=== PATIENT | female | born 1965 | race Caucasian/White ===

== ENCOUNTER → 2019-07-04 | Outpatient (CLI) | payer SELFPAY | PROVIDERS: Family Provider Family Medicine; Visit Provider Internal Medicine Hematology & Oncology | DX: D75.1 Secondary polycythemia (principal); Z86.73 Personal history of transient ischemic attack (TIA), and cerebral infarction without residual deficits; I25.10 Atherosclerotic heart disease of native coronary artery without angina pectoris; Z95.1 Presence of aortocoronary bypass graft; Z95.5 Presence of coronary angioplasty implant and graft; Z86.010 Personal history of colon polyps | CPT/HCPCS: 99213 ==

== ENCOUNTER → 2019-09-27 11:19 | Outpatient (BNVA) | payer MEDICARE, MEDICAID, SELFPAY | PROVIDERS: Family Provider Family Medicine; PCP Family Medicine; Visit Provider Family Medicine | DX: J44.9 Chronic obstructive pulmonary disease, unspecified (principal); I25.810 Atherosclerosis of coronary artery bypass graft(s) without angina pectoris; E55.9 Vitamin D deficiency, unspecified; K21.9 Gastro-esophageal reflux disease without esophagitis; E78.5 Hyperlipidemia, unspecified; G25.81 Restless legs syndrome; N63.20 Unspecified lump in the left breast, unspecified quadrant; R53.83 Other fatigue; D45 Polycythemia vera; E13.43 Other specified diabetes mellitus with diabetic autonomic (poly)neuropathy | CPT/HCPCS: 80053; 80061; 82652; 83036; 85007; 85027 ==

== ENCOUNTER 2019-12-20 08:59 | Outpatient (CLI) | payer MEDICARE, MEDICAID, SELFPAY ==
[2019-12-20 09:46] LABS: Basophils # 0.1 10^3/uL (0.0-0.1); Basophils % 0.6 %; Eosinophils # 0.1 10^3/uL (0.0-0.8); Eosinophils % 0.9 %; Hematocrit 49.2 % (37.0-47.0); Hemoglobin 16.1 g/dL (11.5-15.3); Lymphocytes # 2.4 10^3/uL (0.8-4.8); Lymphocytes % 26.7 %; Mean Corpuscular HGB Conc 32.7 g/dL (30.0-36.0); Mean Corpuscular Hemoglobin 29.3 pg (28.0-34.0); Mean Corpuscular Volume 89.5 fL (81-99); Mean Platelet Volume 9.9 fL (7.4-10.4); Monocytes # 0.6 10^3/uL (0.2-0.9); Monocytes % 6.4 %; Neutrophils # 5.7 10^3/uL (1.8-7.7); Neutrophils % 64.5 %; Nucleated Red Blood Cells % 0 %; Platelet Count 237 10^3/cmm (130-400); Red Cell Distribution Width 13.4 % (12.1-15.1); White Blood Count 8.8 10^3/uL (4.0-10.0)
--- NOTE | 2019-12-20 13:53 | ONC FU_ITS ---
Dr. Fernandez follow up note Patient: Susie Castro Unit #: [id number]: [id number] Dicatated By: Chastity Fernandez M.D.Date of Visit:Dec 20, 2019 Onc Med Follow-up/Prog Note History of Present Illness: Mrs. Jackson???e Matthew, is a 54-year-old female with history of elevated hemoglobin was diagnosed with polycythemia in [address] [place] [address] Lunsford and she was started on phlebotomies every 3 month since then and last phlebotomy was done on 12/18/2018 . As per patient from [place] she moved to [facility] where she saw Dr. hernandez, director of fundraising, he continued with phlebotomies every 3 month. Patient has been tolerating phlebotomies with a 500 mL every 3 months well as per patient she was told that they want to keep her hematocrit from 33, not sure patient understood well as usual recommendations are 42-45. But we'll obtain record from Dr. Lunsford's/ 's office She has history of CVA now recovered, history of triple bypass, and 2 coronary artery stent placement. Patient had colonoscopy done in 2016 at that time couple of polyps were removed, patient developed massive rectal bleed after that, probably from polypectomy site, patient is not aware and received 2 units of packed RBCs. Came for follow-up, complaining of off and on headaches and episode of fall since last follow-up visit in June 2019 and patient lost follow-up because of coronavirus and other issues and today decided to come. Denies any fever chills denies any nausea or vomiting denies any diarrhea or constipation, she has restarted her smoking again and says smoke about half a pack a day and but no focal weakness, no blurred vision or double vision, Medications: Aspirin 1 Tablet (of 81 mg) Oral daily, Atorvastatin Calcium 1 Tablet (of 20 mg) Oral at bedtime, Brilinta 1 Tablet (of 60 mg) Oral b.i.d., Cholecalciferol 1 Capsule (of 56549 Units) Oral q 7 days, Januvia 1 Tablet (of 100 mg) Oral daily, Morphine Sulfate 1 Tablet (of 15 mg) Oral t.i.d. PRN, Multivitamin Adults 1 Tablet Oral daily, Narcan 1 spray(s) (of 4 mg/0.1mL) Liquid Nasal PRN, NexIUM 1 Capsule (of 40 mg) Capsule Delayed Release Oral daily, Nitrostat 1 Tablet (of 0.4 mg) Tablet, sublingual Sublingual PRN, Ondansetron HCl 1 Tablet (of 8 mg) Oral t.i.d. PRN, oxyCODONE HCl 1 Tablet (of 10 mg) Oral q 6 hours PRN, Ranexa 1 Tablet (of 1000 mg) Tablet SR 12 HR Oral b.i.d., Reglan 1 Tablet (of 10 mg) Oral daily, rOPINIRole HCl 1 Tablet (of 0.5 mg) Oral daily, Vascepa 1 Capsule (of 1 G) Oral b.i.d., Ventolin HFA 2 puff(s) (of 108 (90 base) mcg/act) Aerosol, solution Inhalation q 4 hours PRN Allergies: Imitrex, Latex, Pentazocine-Naloxone, quiNINE Sulfate, and traMADol HCl. Review of Systems: Constitutional - Appetite is good. No fever, chills, or hot flashes. She has some fatigue, ENMT - No sinus congestion/drainage. No mouth sores. No sore throat. She has some difficulty swallowing due to her acid reflux, Hematologic/Lymphatic - No abnormal bruising or bleeding, Respiratory - She has some shortness of breath. She has a daily cough. No pleuritic pain or hemoptysis, Cardiovascular - She has occassional chest pain. No palpitations, Gastrointestinal - No nausea or vomiting. She has some acid reflux. She has constipation. She has some hemorrhoids, which causes some blood when she has a hard stool, Genitourinary (F) - No dysuria or hematuria. She has urinary frequency at night. No urgency. She has some bladder leakage, Musculoskeletal - She has back pain due to a preexisting injury. She has generalized pain in her joints, Neurologic - She has a history of headaches and dizziness. No numbness/paresthesias or other focal neurologic symptoms, Psychiatric - She has anxiety. No depression. She has insomnia. Vital Signs: Performed on Dec 20, 2019 10:07 Height - 62.50 in Weight - 182.8 lbs (LOW) BSA - 1.85 sq.m BMI - 32.90 (HIGH) Temperature - 97.0 F (LOW) Pulse - 69 /min Respiration - 22 /min BP - 123/678 mm(hg) O2 Sat - 97 % Pain - 7 Performance Status: 0 - Fully active, able to carry on all predisease activities without restrictions. (ECOG) Physical Examination: ENMT - No mouth sores, no thrush, no jaundice, Respiratory - Lungs are clear, Cardiovascular - Regular rate and rhythm of heart, Abdomen - Soft, bowel sounds present, nontender, Extremities - No visible edema. 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 Lunsford, hematology oncology, since then on 3 monthly phlebotomy with 500 mL, and also on aspirin. Next History of CVA, now recovered X History of coronary artery disease, as per patient status post triple bypass, 2 coronary artery stents History of colonoscopy/polypectomy done in 2016, as per patient, she developed postprocedure rectal bleeding, requiring 2 units of packed RBC. Chronic smoking about half pack a day Plan: Discussed with patient regarding her labs white blood count 8.8 hemoglobin 16.1 crit 49.2 platelets 237,000 Clinically, patient is doing reasonably well now with off and on headaches and one episode of fall and patient is noncompliant with her follow-up and other recommendations like she was advised to quit smoking which she did for some time but then started smoking again. Her follow-up CBC shows elevated hematocrit and we will consider phlebotomy with 500 cc blood and replacement with 250 cc normal saline and the goal is to keep her hematocrit around 42 as long as tolerated and also obtain records from Dr. Lunsford's office. His office was called today and as per his nurse, he has retired, but she will send us patient's request once she received information release form, which was faxed to her today. Patient will continue with phlebotomies on every 2 weeks basis and goal is to keep her hematocrit around 42 and then she will return to clinic in 1 month with CBC. Patient was advised to quit smoking and she was offered any assistance she may need. Signed By: Chastity Fernandez M.D. <<Signature on File>>
== END 2019-12-20 09:00 | disposition home or self-care (01) ==
PROVIDERS: PCP Family Medicine; Visit Provider Internal Medicine Hematology & Oncology
DX: D75.1 Secondary polycythemia (principal); F17.210 Nicotine dependence, cigarettes, uncomplicated; I25.10 Atherosclerotic heart disease of native coronary artery without angina pectoris; Z95.5 Presence of coronary angioplasty implant and graft; Z95.1 Presence of aortocoronary bypass graft; Z86.73 Personal history of transient ischemic attack (TIA), and cerebral infarction without residual deficits
CPT/HCPCS: 85025; 99195; 99214

== ENCOUNTER 2020-01-03 11:19 | Outpatient (CLI) | payer MEDICARE, MEDICAID, SELFPAY ==
[2020-01-03 12:16] LABS: Basophils % 0.4 %; Eosinophils # 0.1 10^3/uL (0.0-0.8); Eosinophils % 1.4 %; Hematocrit 44.1 % (37.0-47.0); Hemoglobin 14.1 g/dL (11.5-15.3); Lymphocytes # 2.9 10^3/uL (0.8-4.8); Lymphocytes % 33.8 %; Mean Corpuscular Hemoglobin 28.8 pg (28.0-34.0); Mean Corpuscular Volume 90.2 fL (81-99); Mean Platelet Volume 9.9 fL (7.4-10.4); Monocytes # 0.5 10^3/uL (0.2-0.9); Monocytes % 5.7 %; Neutrophils # 4.9 10^3/uL (1.8-7.7); Neutrophils % 57.9 %; Nucleated Red Blood Cells % 0 %; Platelet Count 258 10^3/cmm (130-400); Red Blood Count 4.89 10^6/uL (4.1-5.3); Red Cell Distribution Width 13.3 % (12.1-15.1); White Blood Count 8.5 10^3/uL (4.0-10.0)
== END 2020-01-03 11:20 | disposition home or self-care (01) ==
LOC: ONCMED 11:22
PROVIDERS: PCP Family Medicine; Visit Provider Internal Medicine Hematology & Oncology
DX: D75.1 Secondary polycythemia (principal)
CPT/HCPCS: 85025

== ENCOUNTER 2020-01-04 12:26 | Outpatient (CLI) | payer MEDICARE, MEDICAID, SELFPAY ==
--- NOTE | 2020-01-04 13:00 | MR_ITS ---
WS: [id number] MRI HEAD WITH CONTRAST TECHNIQUE: Sagittal T1, T2 axial, T2 axial FLAIR, axial susceptibility weighted imaging, axial diffus ion weighted images, and coronal T2 images were obtained. Pre and post-T1 axial and post T1 coronal i mages. ADC and FSPGR images. CLINICAL INFORMATION: WHITTAKER, falls, memory issues, hx enlarge ventircles COMPARISON: None. FINDINGS: No evidence of restricted diffusion to suggest acute ischemia. Ventricular system and basal cisterns are patent. A few tiny foci of T2 hyperintensity in the periventricular and subcortical white matter nonspecific in a patient this age but can be seen with hypertensionand, diabetes, and migraine headac hes. One or 2 tiny chronic lacunar infarcts right cerebellum. Normal vascular flow voids at the skull base. No extra axial fluid collection. No evidence of mass or mass effect. Paranasal sinuses and mastoid air cells are well aerated. Mild mucosal thickening at th e mastoid tips. No hemosiderin on the susceptibly weighted images. Normal temporal lobes and hippocampal formations. Normal optic chiasm and pituitary infundibulum. Cav ernous sinuses and Meckel's cave normal in appearance. No abnormal gadolinium enhancement. Normal optic chiasm and pituitary infundibulum. Normal visualized dural venous sinuses. MR/MR head wo/w con [id number] IMPRESSION: 1. No evidence of restricted diffusion to suggest acute ischemia. 2. A few tiny foci of T2 hyperintensity in the periventricular and subcortical white matter nonspecific in a patient this age but can be seen with hypertensi on, diabetes, and migraine headaches. 3. One or Two chronic lacunar infarcts in the right cerebellum. 4. No abnormal gadolinium enhancement. 5. Mild mucosal thickening in the mastoid tips. 6. No hemosiderin on the susceptibility weighted images. 7. Temporal lobes and hippocampal formations are normal in appearance.
== END 2020-01-04 12:27 | disposition home or self-care (01) ==
LOC: RADSHAW 12:30
PROVIDERS: PCP Family Medicine; Visit Provider Family Medicine
DX: R29.6 Repeated falls (principal); R41.3 Other amnesia; I63.81 Other cerebral infarction due to occlusion or stenosis of small artery
CPT/HCPCS: 70553; A9579

== ENCOUNTER 2020-01-17 08:58 | Outpatient (CLI) | payer MEDICARE, MEDICAID, SELFPAY ==
[2020-01-17 09:33] LABS: Basophils % 0.5 %; Eosinophils # 0.1 10^3/uL (0.0-0.8); Eosinophils % 1.3 %; Hematocrit 48.7 % (37.0-47.0); Hemoglobin 15.5 g/dL (11.5-15.3); Lymphocytes # 2.2 10^3/uL (0.8-4.8); Lymphocytes % 26.1 %; Mean Corpuscular HGB Conc 31.8 g/dL (30.0-36.0); Mean Corpuscular Hemoglobin 28.5 pg (28.0-34.0); Mean Corpuscular Volume 89.7 fL (81-99); Mean Platelet Volume 9.9 fL (7.4-10.4); Monocytes # 0.5 10^3/uL (0.2-0.9); Monocytes % 6.1 %; Neutrophils # 5.55 10^3/uL (1.8-7.7); Neutrophils % 64.9 %; Nucleated Red Blood Cells % 0 %; Platelet Count 268 10^3/cmm (130-400); Red Blood Count 5.43 10^6/uL (4.1-5.3); Red Cell Distribution Width 13.1 % (12.1-15.1); White Blood Count 8.5 10^3/uL (4.0-10.0)
--- NOTE | 2020-01-19 12:10 | ONC FU_ITS ---
Dr. Fernandez follow up note Patient: Susie Castro Unit #: [id number]: 1965 Dicatated By: Chastity Fernandez M.D.Date of Visit:Jan 17, 2020 Onc Med Follow-up/Prog Note History of Present Illness: Mrs. Jackson???e Matthew, is a 54-year-old female with history of elevated hemoglobin was diagnosed with polycythemia in [address] [place] [address] Lunsford and she was started on phlebotomies every 3 month since then and last phlebotomy was done on 12/18/2018 . As per patient from [place] she moved to [facility] where she saw Dr. hernandez, history department chair, he continued with phlebotomies every 3 month. Patient has been tolerating phlebotomies with a 500 mL every 3 months well as per patient she was told that they want to keep her hematocrit from 33, not sure patient understood well as usual recommendations are 42-45. But we'll obtain record from Dr. Lunsford's/ 's office She has history of CVA now recovered, history of triple bypass, and 2 coronary artery stent placement. Patient had colonoscopy done in 2016 at that time couple of polyps were removed, patient developed massive rectal bleed after that, probably from polypectomy site, patient is not aware and received 2 units of packed RBCs. Came for follow-up, denies any specific complaints, no fever chills, no nausea or vomiting, no diarrhea constipation, no headaches no blurred vision no double vision. Patient use about many pillows to sleep as she has history of GERD Medications: Aspirin 1 Tablet (of 81 mg) Oral daily, Atorvastatin Calcium 1 Tablet (of 20 mg) Oral at bedtime, Brilinta 1 Tablet (of 60 mg) Oral b.i.d., Cholecalciferol 1 Capsule (of 54646 Units) Oral q 7 days, Januvia 1 Tablet (of 100 mg) Oral daily, Morphine Sulfate 1 Tablet (of 15 mg) Oral t.i.d. PRN, Multivitamin Adults 1 Tablet Oral daily, Narcan 1 spray(s) (of 4 mg/0.1mL) Liquid Nasal PRN, NexIUM 1 Capsule (of 40 mg) Capsule Delayed Release Oral daily, Nitrostat 1 Tablet (of 0.4 mg) Tablet, sublingual Sublingual PRN, Ondansetron HCl 1 Tablet (of 8 mg) Oral t.i.d. PRN, oxyCODONE HCl 1 Tablet (of 10 mg) Oral q 6 hours PRN, Ranexa 1 Tablet (of 1000 mg) Tablet SR 12 HR Oral b.i.d., Reglan 1 Tablet (of 20 mg) Oral t.i.d., rOPINIRole HCl 1 Tablet (of 0.5 mg) Oral daily, Vascepa 1 Capsule (of 1 G) Oral b.i.d., Ventolin HFA 2 puff(s) (of 108 (90 base) mcg/act) Aerosol, solution Inhalation q 4 hours PRN Allergies: Imitrex, Latex, Pentazocine-Naloxone, quiNINE Sulfate, and traMADol HCl. Review of Systems: Constitutional - Appetite is good. No fever, chills, or hot flashes. She has some fatigue, ENMT - No sinus congestion/drainage. No mouth sores. No sore throat. She has some difficulty swallowing due to her acid reflux, Hematologic/Lymphatic - No abnormal bruising or bleeding, Respiratory - She has some shortness of breath. She has a daily cough. No pleuritic pain or hemoptysis, Cardiovascular - She has occassional chest pain. No palpitations, Gastrointestinal - No nausea or vomiting. She has some acid reflux. She has constipation. She has some hemorrhoids, which causes some blood when she has a hard stool, Genitourinary (F) - No dysuria or hematuria. She has urinary frequency at night. No urgency. She has some bladder leakage, Musculoskeletal - She has back pain due to a preexisting injury. She has generalized pain in her joints, Neurologic - She has a history of headaches and dizziness. No numbness/paresthesias or other focal neurologic symptoms, Psychiatric - She has anxiety. No depression. She has insomnia. Vital Signs: Performed on Jan 17, 2020 10:26 Height - 62.50 in Weight - 182.6 lbs (LOW) BSA - 1.85 sq.m BMI - 32.87 (HIGH) Temperature - 97.6 F (LOW) Pulse - 69 /min Respiration - 24 /min BP - 128/74 mm(hg) O2 Sat - 98 % Pain - 7 Performance Status: 1 - No physically strenuous activity, but ambulatory and able to carry out light or sedentary work (e.g. office work, light house work). (ECOG) Physical Examination: ENMT - No mouth sores no thrush or jaundice, Respiratory - Poor air entry, mild wheezing, Cardiovascular - Regular rate and rhythm of heart, Abdomen - Soft, bowel sounds present, Extremities - No edema or rash. Lab/Imaging: Test performed on Jan 03, 2020 11:35 WBC 8.5 10 3/uL RBC 4.89 10 6/uL HGB 14.1 g/dL HCT 44.1 % MCV 90.2 fL MCH 28.8 pg MCHC 32.0 g/dL RDW 13.3 % Platelet Count 258 10 3/cmm MPV 9.9 fL Neutrophils 4.9 10 3/uL Lymphocytes 2.9 10 3/uL Monocytes 0.5 10 3/uL Eosinophils 0.1 10 3/uL Basophils 0.0 10 3/uL Neutrophil % 57.9 % Lymphocyte % 33.8 % Monocyte % 5.7 % Eosinophil % 1.4 % Basophils % 0.4 % NRBC % 0 % Impression: History of secondary polycythemia diagnosed in 2017, patient had Yvonne 2 mutation checked twice once on September 27, 2017 at [facility] medical oncology in [place],, it was negative and again second time on December 13, 2018 at [facility] in [place] and again it was noted detected History of CVA, now recovered X History of coronary artery disease, as per patient status post triple bypass, 2 coronary artery stents History of colonoscopy/polypectomy done in 2016, as per patient, she developed postprocedure rectal bleeding, requiring 2 units of packed RBC. Chronic smoking about half pack a day Plan: Discussed with patient regarding her labs white blood count 8.5 hemoglobin 15.5 crit 48.7 platelets 268,000 Clinically, patient is doing well with no new signs symptoms and also discussed with her regarding her medical record from [facility] as well as from [facility] in [place] at both places she had Yvonne 2 mutation checked and it was not detected, so she was diagnosed with a secondary polycythemia probably due to chronic smoking as well as possibility of sleep apnea. Patient was advised to quit smoking but she still smoking about a pack a day and sometimes 2 packs. Discussed with patient regarding guidelines about secondary polycythemia usually treated with for underlying conditions, in her case chronic heavy smoking and possible to sleep apnea patient was advised to quit smoking but she declined, she was offered any assistance she may need and also advised to discuss with PMD to get get sleep study done. As far as full body is concerned we will monitor closely and keep her hemoglobin/hematocrit between 50 and 55 unless she becomes symptomatic then we will keep her around 50. Patient expressed full understanding and she was advised to continue take aspirin and maintain good hydration, and quit smoking. Patient return to clinic in 2 months with CBC Signed By: Chastity Fernandez M.D. <<Signature on File>>
== END 2020-01-17 08:59 | disposition home or self-care (01) ==
LOC: ONCMED 09:01
PROVIDERS: PCP Family Medicine; Visit Provider Internal Medicine Hematology & Oncology
DX: D75.1 Secondary polycythemia (principal); F17.210 Nicotine dependence, cigarettes, uncomplicated; I25.10 Atherosclerotic heart disease of native coronary artery without angina pectoris; Z86.73 Personal history of transient ischemic attack (TIA), and cerebral infarction without residual deficits; Z95.5 Presence of coronary angioplasty implant and graft; Z95.1 Presence of aortocoronary bypass graft
CPT/HCPCS: 85025; G0463

== ENCOUNTER 2020-02-14 06:00 | Outpatient (RCR) | payer MEDICARE, MEDICAID, SELFPAY | END 2020-03-04 23:59 | disposition home or self-care (01) | LOC: MPT 06:00 | PROVIDERS: PCP Family Medicine; Referring Provider Anesthesiology; Visit Provider Anesthesiology | DX: M25.552 Pain in left hip (principal); M54.5 Low back pain | CPT/HCPCS: 97110; 97140; 97161; 97530 ==

== ENCOUNTER → 2020-02-19 11:07 | Outpatient (BNVA) | payer MEDICARE, MEDICAID, SELFPAY | PROVIDERS: PCP Family Medicine; Visit Provider Nurse Practitioner | DX: R41.3 Other amnesia (principal); R29.90 Unspecified symptoms and signs involving the nervous system | CPT/HCPCS: 99204 ==

== ENCOUNTER 2020-03-05 06:00 | Outpatient (RCR) | payer MEDICARE, MEDICAID, SELFPAY | END 2020-04-03 23:59 | disposition home or self-care (01) | LOC: MPT 06:00 | PROVIDERS: PCP Family Medicine; Referring Provider Anesthesiology; Visit Provider Anesthesiology | DX: M25.552 Pain in left hip (principal) | CPT/HCPCS: 97110; 97140; 97530 ==

== ENCOUNTER → 2020-03-07 11:34 | Outpatient (BNVA) | payer MEDICARE, MEDICAID, SELFPAY | PROVIDERS: PCP Family Medicine; Visit Provider Family Medicine | DX: E11.9 Type 2 diabetes mellitus without complications (principal); M53.3 Sacrococcygeal disorders, not elsewhere classified; F32.9 Major depressive disorder, single episode, unspecified; R41.3 Other amnesia; R51 Headache | CPT/HCPCS: 80053; 82607; 83036; 84443 ==

== ENCOUNTER → 2020-04-02 11:50 | Outpatient (BNVA) | payer MEDICARE, MEDICAID, SELFPAY | PROVIDERS: PCP Family Medicine; Referring Provider Nurse Practitioner; Visit Provider Nurse Practitioner | DX: Z79.899 Other long term (current) drug therapy (principal) | CPT/HCPCS: 80164 ==

== ENCOUNTER 2020-04-17 12:16 | Outpatient (CLI) | payer MEDICARE, MEDICAID, SELFPAY ==
[2020-04-17 12:59] LABS: Basophils # 0.1 10^3/uL (0.0-0.1); Basophils % 0.7 %; Eosinophils # 0.1 10^3/uL (0.0-0.8); Eosinophils % 1.5 %; Hematocrit 51.5 % (37.0-47.0); Hemoglobin 16.7 g/dL (11.5-15.3); Lymphocytes % 40.7 %; Mean Corpuscular HGB Conc 32.4 g/dL (30.0-36.0); Mean Corpuscular Hemoglobin 29.3 pg (28.0-34.0); Mean Corpuscular Volume 90.4 fL (81-99); Monocytes # 0.5 10^3/uL (0.2-0.9); Monocytes % 7.3 %; Neutrophils # 3.59 10^3/uL (1.8-7.7); Neutrophils % 48.6 %; Nucleated Red Blood Cells % 0 %; Platelet Count 245 10^3/cmm (130-400); Red Cell Distribution Width 13.4 % (12.1-15.1); White Blood Count 7.4 10^3/uL (4.0-10.0)
== END 2020-04-17 12:17 | disposition home or self-care (01) ==
LOC: ONCMED 12:20
PROVIDERS: PCP Family Medicine; Visit Provider Internal Medicine Hematology & Oncology
DX: D75.1 Secondary polycythemia (principal)
CPT/HCPCS: 36415; 85025

== ENCOUNTER 2020-04-18 05:52 | Outpatient (CLI) | payer MEDICARE, MEDICAID, SELFPAY ==
--- NOTE | 2020-04-18 14:12 | ONC FU_ITS ---
Dr. Fernandez follow up note Patient: Susie Castro Unit #: [id number]: 1965 Dicatated By: Chastity Fernandez M.D.Date of Visit:Apr 18, 2020 Onc Med Follow-up/Prog Note History of Present Illness: Mrs. Jackson???e Matthew, is a 55-year-old female with history of elevated hemoglobin was diagnosed with polycythemia in [address] [place] [address] Lunsford and she was started on phlebotomies every 3 month since then and last phlebotomy was done on 12/18/2018 . As per patient from [place] she moved to [facility] where she saw Dr. hernandez, deputy sheriff generalist/bailiff, he continued with phlebotomies every 3 month. Patient has been tolerating phlebotomies with a 500 mL every 3 months well as per patient she was told that they want to keep her hematocrit from 33, not sure patient understood well as usual recommendations are 42-45. But we'll obtain record from Dr. Lunsford's/ 's office She has history of CVA now recovered, history of triple bypass, and 2 coronary artery stent placement. Patient had colonoscopy done in 2016 at that time couple of polyps were removed, patient developed massive rectal bleed after that, probably from polypectomy site, patient is not aware and received 2 units of packed RBCs. Came for follow-up, patient is complaining of episode of small blood in her phlegm x3 since last month, happened after coughing, patient still smoke 1 pack a day. But no fever chills, no nausea or vomiting, no diarrhea constipation, no nosebleed or gum bleed, and also complaining of headaches, as per patient her Depakote dose has been increased to control her headaches, as per patient when her hematocrit goes above 50, usually she gets gets headaches or worsening of headaches. No focal weakness, no chest pain no heaviness no palpitation. Medications: Aspirin 1 Tablet (of 81 mg) Oral daily, Atorvastatin Calcium 1 Tablet (of 20 mg) Oral at bedtime, Brilinta 1 Tablet (of 60 mg) Oral b.i.d., Cholecalciferol 1 Capsule (of 93899 Units) Oral q 7 days, Cyclobenzaprine HCl 2 Tablet (of 10 mg) Oral t.i.d., Depakote ER 2 Tablet (of 500 mg) Tablet SR 24 HR Oral at bedtime, Januvia 1 Tablet (of 100 mg) Oral daily, Morphine Sulfate 1 Tablet (of 30 mg) Oral t.i.d. PRN, Multivitamin Adults 1 Tablet Oral daily, Narcan 1 spray(s) (of 4 mg/0.1mL) Liquid Nasal PRN, NexIUM 1 Capsule (of 40 mg) Capsule Delayed Release Oral daily, Nitrostat 1 Tablet (of 0.4 mg) Tablet, sublingual Sublingual PRN, Ondansetron HCl 1 Tablet (of 8 mg) Oral t.i.d. PRN, oxyCODONE HCl 1 Tablet (of 10 mg) Oral q 6 hours PRN, PROzac 1 Capsule (of 10 mg) Oral daily, Ranexa 1 Tablet (of 1000 mg) Tablet SR 12 HR Oral b.i.d., Reglan 1 Tablet (of 20 mg) Oral t.i.d., rOPINIRole HCl 1 Tablet (of 0.5 mg) Oral daily, Vascepa 1 Capsule (of 1 G) Oral b.i.d., Ventolin HFA 2 puff(s) (of 108 (90 base) mcg/act) Aerosol, solution Inhalation q 4 hours PRN Allergies: Imitrex, Latex, Pentazocine-Naloxone, quiNINE Sulfate, and traMADol HCl. Review of Systems: Constitutional - Appetite is good. No fever, chills, or hot flashes. She has some fatigue, ENMT - No sinus congestion/drainage. No mouth sores. No sore throat. She has some difficulty swallowing due to her acid reflux, Hematologic/Lymphatic - No abnormal bruising or bleeding, Respiratory - She has some shortness of breath. She has a daily cough. Positive for hemoptysis, Cardiovascular - She has occassional chest pain. No palpitations, Gastrointestinal - No nausea or vomiting. She has some acid reflux. She has constipation. She has some hemorrhoids, which causes some blood when she has a hard stool, Genitourinary (F) - No dysuria or hematuria. She has urinary frequency at night. No urgency. She has some bladder leakage, Musculoskeletal - She has back pain due to a preexisting injury. She has generalized pain in her joints, Neurologic - She has a history of headaches and dizziness. No numbness/paresthesias or other focal neurologic symptoms, Psychiatric - She has anxiety. No depression. She has insomnia. Vital Signs: Performed on Apr 18, 2020 13:30 Height - 62.50 in Weight - 182.6 lbs BSA - 1.85 sq.m BMI - 32.87 (HIGH) Temperature - 97.8 F (LOW) Pulse - 70 /min Respiration - 24 /min BP - 122/65 mm(hg) O2 Sat - 97 % Pain - 6 Performance Status: 0 - Fully active, able to carry on all predisease activities without restrictions. (ECOG) Physical Examination: ENMT - No mouth sores, no thrush, no Jaundice, Respiratory - Lungs are clear to auscultation, Cardiovascular - Regular rate and rhythm of heart, Abdomen - Soft, bowel sounds present, Extremities - No visible edema. Lab/Imaging: Test performed on Jan 17, 2020 09:10 WBC 8.5 10 3/uL RBC 5.43 10 6/uL HGB 15.5 g/dL HCT 48.7 % MCV 89.7 fL MCH 28.5 pg MCHC 31.8 g/dL RDW 13.1 % Platelet Count 268 10 3/cmm MPV 9.9 fL Neutrophils 5.55 10 3/uL Lymphocytes 2.2 10 3/uL Monocytes 0.5 10 3/uL Eosinophils 0.1 10 3/uL Basophils 0.0 10 3/uL Neutrophil % 64.9 % Lymphocyte % 26.1 % Monocyte % 6.1 % Eosinophil % 1.3 % Basophils % 0.5 % NRBC % 0 % Impression: History of secondary polycythemia diagnosed in 2016, patient had Yvonne 2 mutation checked twice once on September 27, 2017 at [facility] oncology in [place],, it was negative and again second time on December 13, 2018 at [facility] in [place] and again it was noted detected History of CVA, now recovered X History of coronary artery disease, as per patient status post triple bypass, 2 coronary artery stents History of colonoscopy/polypectomy done in 2016, as per patient, she developed postprocedure rectal bleeding, requiring 2 units of packed RBC. Chronic smoking about half pack a day Plan: Discussed with patient regarding her labs white blood count 7.4 hemoglobin 16.7 hematocrit 51.5 compared to 48.7 on January 17, 2020, platelets 245,000 Clinically, patient is doing reasonably well now with new signs symptoms like off and on self-limiting small hemoptysis especially during or after coughing. Etiology unclear could be due to chronic bronchitis, we will consider chest x-ray if it shows no abnormality and patient continued to have hemoptysis we will refer her to pulmonology for evaluation. As for her headaches and worsening of headache is concerned, patient has secondary polycythemia, most the patient can tolerate hematocrit as high as 55 but in her case, as per patient her symptoms usually get worse when hematocrit goes above 50, at this point we will proceed with phlebotomy 250 cc and then she will return to clinic in 1 month with CBC if patient's headaches improved with phlebotomy then we will keep her hematocrit below 50. Patient was advised to quit smoking and was offered any assistance she may need she was also advised to reconsider about sleep study, as she may benefit from sleep apnea management. Patient was also advised to maintain good hydration and continue daily aspirin a day. Signed By: Chastity Fernandez M.D. <<Signature on File>>
[2020-04-18] MEDS: sodium chloride 0.9% 250 ML 75 ML IV (14:36)
--- NOTE | 2020-04-18 14:49 | XR_ITS ---
WS: [id number] Chest 2 views, 04/18/2020 Clinical Data: COUGHING UP BLOOD Comparison: Portable chest, 06/01/2019 Findings: No nodules, masses or effusions are seen. The heart is normal. The pulmonary vascularity is not increased. No pneumonia or pneumothorax is seen. Anterior mediastinal clips are seen. XR/XR chest 2V* [id number] Impression: Negative for acute cardiopulmonary disease.
== END 2020-04-18 05:53 | disposition home or self-care (01) ==
PROVIDERS: PCP Family Medicine; Visit Provider Internal Medicine Hematology & Oncology
DX: D75.1 Secondary polycythemia (principal); R04.2 Hemoptysis; R51.9 Headache, unspecified; I25.10 Atherosclerotic heart disease of native coronary artery without angina pectoris; F17.210 Nicotine dependence, cigarettes, uncomplicated; Z86.73 Personal history of transient ischemic attack (TIA), and cerebral infarction without residual deficits; Z95.5 Presence of coronary angioplasty implant and graft; Z95.1 Presence of aortocoronary bypass graft; Z79.82 Long term (current) use of aspirin; Z86.010 Personal history of colon polyps
CPT/HCPCS: 71046; 99195; 99214; J7050

== ENCOUNTER 2020-05-20 06:00 | Outpatient (CLI) | payer MEDICARE, MEDICAID, SELFPAY ==
[2020-05-20 10:52] LABS: Basophils % 0.3 %; Eosinophils # 0.1 10^3/uL (0.0-0.8); Eosinophils % 1.1 %; Hematocrit 48.5 % (37.0-47.0); Hemoglobin 15.6 g/dL (11.5-15.3); Lymphocytes # 2.3 10^3/uL (0.8-4.8); Lymphocytes % 23.8 %; Mean Corpuscular HGB Conc 32.2 g/dL (30.0-36.0); Mean Corpuscular Hemoglobin 29.5 pg (28.0-34.0); Mean Corpuscular Volume 91.9 fL (81-99); Mean Platelet Volume 9.6 fL (7.4-10.4); Monocytes # 0.8 10^3/uL (0.2-0.9); Monocytes % 7.8 %; Neutrophils # 6.39 10^3/uL (1.8-7.7); Neutrophils % 66.3 %; Nucleated Red Blood Cells % 0 %; Platelet Count 256 10^3/cmm (130-400); Red Blood Count 5.28 10^6/uL (4.1-5.3); Red Cell Distribution Width 13.3 % (12.1-15.1); White Blood Count 9.7 10^3/uL (4.0-10.0)
== END 2020-05-20 06:01 | disposition home or self-care (01) ==
PROVIDERS: PCP Family Medicine; Visit Provider Internal Medicine Hematology & Oncology
DX: D75.1 Secondary polycythemia (principal)
CPT/HCPCS: 36415; 85025

== ENCOUNTER 2020-05-21 06:01 | Outpatient (CLI) | payer MEDICARE, MEDICAID, SELFPAY ==
--- NOTE | 2020-05-21 13:57 | ONC FU_ITS ---
Dr. Fernandez follow up note Patient: Susie Castro Unit #: [id number]: [id number] Dicatated By: Chastity Fernandez M.D.Date of Visit:May 21, 2020 Onc Med Follow-up/Prog Note History of Present Illness: Mrs. Jackson???e Matthew, is a 55-year-old female with history of elevated hemoglobin was diagnosed with polycythemia in 2016 in [place] [address] Dr. Lunsford and she was started on phlebotomies every 3 month since then and last phlebotomy was done on 12/18/2018 . As per patient from [place] she moved to [facility] where she saw Dr. hernandez, statement clerk, he continued with phlebotomies every 3 month. Patient has been tolerating phlebotomies with a 500 mL every 3 months well as per patient she was told that they want to keep her hematocrit from 33, not sure patient understood well as usual recommendations are 42-45. But we'll obtain record from Dr. Lunsford's/ 's office She has history of CVA now recovered, history of triple bypass, and 2 coronary artery stent placement. Patient had colonoscopy done in 2016 at that time couple of polyps were removed, patient developed massive rectal bleed after that, probably from polypectomy site, patient is not aware and received 2 units of packed RBCs. Came for follow-up, denies any specific complaints, no fever chills, no nausea or vomiting, no diarrhea constipation, no headaches blurred vision double vision, no focal weakness, no heaviness in the chest. Still smoking but has cut down significantly.. Medications: Aspirin 1 Tablet (of 81 mg) Oral daily, Atorvastatin Calcium 1 Tablet (of 20 mg) Oral at bedtime, Brilinta 1 Tablet (of 60 mg) Oral b.i.d., Cholecalciferol 1 Capsule (of 18791 Units) Oral q 7 days, Cyclobenzaprine HCl 2 Tablet (of 5 mg) Oral t.i.d., Depakote ER 2 Tablet (of 500 mg) Tablet SR 24 HR Oral at bedtime, Januvia 1 Tablet (of 100 mg) Oral daily, Morphine Sulfate 1 Tablet (of 30 mg) Oral t.i.d. PRN, Multivitamin Adults 1 Tablet Oral daily, Narcan 1 spray(s) (of 4 mg/0.1mL) Liquid Nasal PRN, NexIUM 1 Capsule (of 40 mg) Capsule Delayed Release Oral daily, Nitrostat 1 Tablet (of 0.4 mg) Tablet, sublingual Sublingual PRN, Ondansetron HCl 1 Tablet (of 8 mg) Oral t.i.d. PRN, oxyCODONE HCl 1 Tablet (of 10 mg) Oral q 6 hours PRN, PROzac 1 Capsule (of 10 mg) Oral daily, Ranexa 1 Tablet (of 1000 mg) Tablet SR 12 HR Oral b.i.d., Reglan 1 Tablet (of 20 mg) Oral t.i.d., rOPINIRole HCl 1 Tablet (of 0.5 mg) Oral daily, Vascepa 1 Capsule (of 1 G) Oral b.i.d., Ventolin HFA 2 puff(s) (of 108 (90 base) mcg/act) Aerosol, solution Inhalation q 4 hours PRN Allergies: Imitrex, Latex, Pentazocine-Naloxone, quiNINE Sulfate, and traMADol HCl. Review of Systems: Review of Systems is not available for this patient. Vital Signs: Performed on May 21, 2020 13:34 Height - 62.50 in Weight - 183.0 lbs (HIGH) BSA - 1.85 sq.m BMI - 32.94 (HIGH) Temperature - 98.0 F (LOW) Pulse - 76 /min Respiration - 24 /min BP - 108/64 mm(hg) O2 Sat - 98 % Pain - 5 Performance Status: 1 - No physically strenuous activity, but ambulatory and able to carry out light or sedentary work (e.g. office work, light house work). (ECOG) Physical Examination: ENMT - No mouth sores, no thrush, no jaundice, Respiratory - Poor air entry otherwise clear, Cardiovascular - Regular rate and rhythm of heart, Abdomen - Soft, bowel sounds present, Extremities - No visible edema. Lab/Imaging: Test performed on Apr 17, 2020 12:40 WBC 7.4 10 3/uL RBC 5.70 10 6/uL HGB 16.7 g/dL HCT 51.5 % MCV 90.4 fL MCH 29.3 pg MCHC 32.4 g/dL RDW 13.4 % Platelet Count 245 10 3/cmm MPV 10.0 fL Neutrophils 3.59 10 3/uL Lymphocytes 3.0 10 3/uL Monocytes 0.5 10 3/uL Eosinophils 0.1 10 3/uL Basophils 0.1 10 3/uL Neutrophil % 48.6 % Lymphocyte % 40.7 % Monocyte % 7.3 % Eosinophil % 1.5 % Basophils % 0.7 % NRBC % 0 % Impression: History of secondary polycythemia diagnosed in 2016, patient had Yvonne 2 mutation checked twice once on September 27, 2017 at [facility] oncology in [place],, it was negative and again second time on December 13, 2018 at [facility] in [place] and again it was noted detected History of CVA, now recovered X History of coronary artery disease, as per patient status post triple bypass, 2 coronary artery stents History of colonoscopy/polypectomy done in 2016, as per patient, she developed postprocedure rectal bleeding, requiring 2 units of packed RBC. Chronic smoking about half pack a day Plan: Discussed with patient regarding her labs white blood count 9.7 hemoglobin 15.6 hematocrit 48.5 platelets 256,000, chest x-ray showed no acute cardiopulmonary disease. Clinically, patient doing reasonably well, no more episode of hemoptysis, her lab work-up shows hematocrit in desirable range e.g. below 50 and patient has no new symptoms as per patient anytime her hematocrit go above 50 she gets headaches and heaviness. She was advised to quit smoking and was offered any assistance she may need. Return to clinic in 1 month with CBC Signed By: Chastity Fernandez M.D. <<Signature on File>>
== END 2020-05-21 06:02 | disposition home or self-care (01) ==
LOC: ONCMED 06:03
PROVIDERS: PCP Family Medicine; Visit Provider Internal Medicine Hematology & Oncology
DX: D75.1 Secondary polycythemia (principal); F17.210 Nicotine dependence, cigarettes, uncomplicated; I25.10 Atherosclerotic heart disease of native coronary artery without angina pectoris; Z86.73 Personal history of transient ischemic attack (TIA), and cerebral infarction without residual deficits; Z95.1 Presence of aortocoronary bypass graft; Z95.5 Presence of coronary angioplasty implant and graft
CPT/HCPCS: G0463

== ENCOUNTER 2020-06-13 08:59 | Outpatient (CLI) | payer MEDICARE, MEDICAID, SELFPAY ==
[2020-06-13 09:29] LABS: Basophils # 0.1 10^3/uL (0.0-0.1); Basophils % 0.5 %; Eosinophils # 0.1 10^3/uL (0.0-0.8); Eosinophils % 1.2 %; Hematocrit 49.3 % (37.0-47.0); Hemoglobin 16.2 g/dL (11.5-15.3); Lymphocytes # 2.1 10^3/uL (0.8-4.8); Lymphocytes % 23.5 %; Mean Corpuscular HGB Conc 32.9 g/dL (30.0-36.0); Mean Corpuscular Hemoglobin 29.9 pg (28.0-34.0); Mean Corpuscular Volume 91.1 fL (81-99); Mean Platelet Volume 9.9 fL (7.4-10.4); Monocytes # 0.6 10^3/uL (0.2-0.9); Monocytes % 6.6 %; Neutrophils # 6.14 10^3/uL (1.8-7.7); Neutrophils % 67.3 %; Nucleated Red Blood Cells % 0 %; Platelet Count 241 10^3/cmm (130-400); Red Blood Count 5.41 10^6/uL (4.1-5.3); Red Cell Distribution Width 13.1 % (12.1-15.1); White Blood Count 9.1 10^3/uL (4.0-10.0)
--- NOTE | 2020-06-14 00:44 | ONC FU_ITS ---
Dr. Fernandez follow up note Patient: Susie Castro Unit #: [id number]: 1965 Dicatated By: Chastity Fernandez M.D.Date of Visit:Jun 13, 2020 Onc Med Follow-up/Prog Note History of Present Illness: Mrs. Jackson???e Matthew, is a 55-year-old female with history of elevated hemoglobin was diagnosed with polycythemia in 2016 in [place] by Dr. Lunsford and she was started on phlebotomies every 3 month since then and last phlebotomy was done on 12/18/2018 . As per patient from [place] she moved to [facility] where she saw Dr. 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 Patient has been tolerating phlebotomies with a 500 mL every 3 months well as per patient she was told that they want to keep her hematocrit from 33, not sure patient understood well as usual recommendations are 42-45. But we'll obtain record from Dr. Lunsford's/ 's office She has history of CVA now recovered, history of triple bypass, and 2 coronary artery stent placement. Patient had colonoscopy done in 2016 at that time couple of polyps were removed, patient developed massive rectal bleed after that, probably from polypectomy site, patient is not aware and received 2 units of packed RBCs. Came for follow-up, denies any specific complaints, no fever chills, no nausea or vomiting, no diarrhea or constipation, no headaches blurred vision double vision, no chest heaviness or fullness. Still smoking 1 pack a day but trying to cut it down Medications: Aspirin 1 Tablet (of 81 mg) Oral daily, Atorvastatin Calcium 1 Tablet (of 20 mg) Oral at bedtime, Brilinta 1 Tablet (of 60 mg) Oral b.i.d., Cholecalciferol 1 Capsule (of 05512 Units) Oral q 7 days, Cyclobenzaprine HCl 2 Tablet (of 5 mg) Oral t.i.d., Depakote ER 2 Tablet (of 500 mg) Tablet SR 24 HR Oral at bedtime, Januvia 1 Tablet (of 100 mg) Oral daily, Morphine Sulfate 1 Tablet (of 30 mg) Oral t.i.d. PRN, Multivitamin Adults 1 Tablet Oral daily, Narcan 1 spray(s) (of 4 mg/0.1mL) Liquid Nasal PRN, NexIUM 1 Capsule (of 40 mg) Capsule Delayed Release Oral daily, Nitrostat 1 Tablet (of 0.4 mg) Tablet, sublingual Sublingual PRN, Ondansetron HCl 1 Tablet (of 8 mg) Oral t.i.d. PRN, oxyCODONE HCl 1 Tablet (of 10 mg) Oral q 6 hours PRN, PROzac 1 Capsule (of 10 mg) Oral daily, Ranexa 1 Tablet (of 1000 mg) Tablet SR 12 HR Oral b.i.d., Reglan 1 Tablet (of 20 mg) Oral t.i.d., rOPINIRole HCl 1 Tablet (of 0.5 mg) Oral daily, Vascepa 1 Capsule (of 1 G) Oral b.i.d., Ventolin HFA 2 puff(s) (of 108 (90 base) mcg/act) Aerosol, solution Inhalation q 4 hours PRN Allergies: Imitrex, Latex, Pentazocine-Naloxone, quiNINE Sulfate, and traMADol HCl. Review of Systems: Constitutional - Appetite is good. No fever, chills, or hot flashes. She has some fatigue, ENMT - No sinus congestion/drainage. No mouth sores. No sore throat. She has some difficulty swallowing due to her acid reflux, Hematologic/Lymphatic - No abnormal bruising or bleeding, Respiratory - She has some shortness of breath. She has a daily cough. Positive for hemoptysis, Cardiovascular - She has occassional chest pain. No palpitations, Gastrointestinal - Positive for nausea no vomiting. She has some acid reflux. She has constipation. She has some hemorrhoids, which causes some blood when she has a hard stool, Genitourinary (F) - No dysuria or hematuria. She has urinary frequency at night. No urgency. She has some bladder leakage, Musculoskeletal - She has back pain due to a preexisting injury. She has generalized pain in her joints, Neurologic - She has a history of headaches and dizziness. No numbness/paresthesias or other focal neurologic symptoms, Psychiatric - She has anxiety. No depression. She has insomnia. Vital Signs: Performed on Jun 13, 2020 11:22 Height - 62.50 in Weight - 181.2 lbs (LOW) BSA - 1.84 sq.m BMI - 32.61 (HIGH) Temperature - 97.9 F (LOW) Pulse - 70 /min Respiration - 20 /min BP - 114/62 mm(hg) O2 Sat - 97 % Pain - 0 Performance Status: 0 - Fully active, able to carry on all predisease activities without restrictions. (ECOG) Physical Examination: ENMT - No mouth sores, no thrush, no jaundice, Respiratory - Poor air entry otherwise clear, Cardiovascular - Regular rate and rhythm of heart, Abdomen - Soft, bowel sounds present, Extremities - No visible edema. Lab/Imaging: Test performed on May 20, 2020 10:45 WBC 9.7 10 3/uL RBC 5.28 10 6/uL HGB 15.6 g/dL HCT 48.5 % MCV 91.9 fL MCH 29.5 pg MCHC 32.2 g/dL RDW 13.3 % Platelet Count 256 10 3/cmm MPV 9.6 fL Neutrophils 6.39 10 3/uL Lymphocytes 2.3 10 3/uL Monocytes 0.8 10 3/uL Eosinophils 0.1 10 3/uL Basophils 0.0 10 3/uL Neutrophil % 66.3 % Lymphocyte % 23.8 % Monocyte % 7.8 % Eosinophil % 1.1 % Basophils % 0.3 % NRBC % 0 % Impression: History of secondary polycythemia diagnosed in 2016, patient had Yvonne 2 mutation checked twice once on September 27, 2017 at [facility] medical oncology in [place],, it was negative and again second time on December 13, 2018 at [facility] in [place] and again it was noted detected History of CVA, now recovered X History of coronary artery disease, as per patient status post triple bypass, 2 coronary artery stents History of colonoscopy/polypectomy done in 2016, as per patient, she developed postprocedure rectal bleeding, requiring 2 units of packed RBC. Chronic smoking about half pack a day Plan: Discussed with patient regarding her labs white blood count 9.1 hemoglobin 16.2 hematocrit 49.3 platelets 241,000 Clinically, patient is doing well with no new signs symptoms or lab work-up is stable, hematocrit less than 50 Patient was advised to quit smoking and was offered any assistance she may need, was also advised to maintain good hydration and continue take aspirin daily Return to clinic in 2 months with CBC Signed By: Chastity Fernandez M.D. <<Signature on File>>
== END 2020-06-13 09:00 | disposition home or self-care (01) ==
LOC: ONCMED 09:02
PROVIDERS: PCP Family Medicine; Visit Provider Internal Medicine Hematology & Oncology
DX: D75.1 Secondary polycythemia (principal); I25.10 Atherosclerotic heart disease of native coronary artery without angina pectoris; F17.210 Nicotine dependence, cigarettes, uncomplicated; Z86.73 Personal history of transient ischemic attack (TIA), and cerebral infarction without residual deficits; Z95.1 Presence of aortocoronary bypass graft; Z95.5 Presence of coronary angioplasty implant and graft; Z79.82 Long term (current) use of aspirin
CPT/HCPCS: 36415; 85025; G0463

== ENCOUNTER → 2020-08-26 13:14 | Outpatient (BNVA) | payer MEDICARE, MEDICAID, SELFPAY | PROVIDERS: PCP Family Medicine; Visit Provider Nurse Practitioner | DX: R51.9 Headache, unspecified (principal); F17.210 Nicotine dependence, cigarettes, uncomplicated | CPT/HCPCS: 99214 ==

== ENCOUNTER → 2020-09-10 10:13 | Outpatient (BNVA) | payer MEDICARE, MEDICAID, SELFPAY | PROVIDERS: PCP Family Medicine; Visit Provider Family Medicine | DX: Z12.39 Encounter for other screening for malignant neoplasm of breast (principal); K21.9 Gastro-esophageal reflux disease without esophagitis; E13.43 Other specified diabetes mellitus with diabetic autonomic (poly)neuropathy; E11.9 Type 2 diabetes mellitus without complications; G25.81 Restless legs syndrome; G45.9 Transient cerebral ischemic attack, unspecified; I25.810 Atherosclerosis of coronary artery bypass graft(s) without angina pectoris; E78.5 Hyperlipidemia, unspecified; F32.9 Major depressive disorder, single episode, unspecified; K59.09 Other constipation; J44.9 Chronic obstructive pulmonary disease, unspecified; D45 Polycythemia vera; I10 Essential (primary) hypertension; E11.49 Type 2 diabetes mellitus with other diabetic neurological complication; E78.2 Mixed hyperlipidemia | CPT/HCPCS: 80048; 80061; 83036; 85025 ==

== ENCOUNTER 2020-09-13 09:31 | Outpatient (CLI) | payer MEDICARE, MEDICAID, SELFPAY ==
[2020-09-13] MEDS: sodium chloride 0.9% 250 ML IV (11:35)
--- NOTE | 2020-09-13 12:44 | ONC FU_ITS ---
Dr. Fernandez follow up note Patient: Susie Castro Unit #: [id number]: 1965 Dicatated By: Chastity Fernandez M.D.Date of Visit:Sep 13, 2020 Onc Med Follow-up/Prog Note History of Present Illness: Mrs. Jackson???e Matthew, is a 55-year-old female with history of elevated hemoglobin was diagnosed with polycythemia in 2016 in [place] by Dr. Lunsford and she was started on phlebotomies every 3 month since then and last phlebotomy was done on 12/18/2018 . As per patient from [place] she moved to [facility] where she saw Dr. hernandez, nurse consultant, he continued with phlebotomies every 3 month. Patient has been tolerating phlebotomies with a 500 mL every 3 months well as per patient she was told that they want to keep her hematocrit from 33, not sure patient understood well as usual recommendations are 42-45. But we'll obtain record from Dr. Lunsford's/ 's office She has history of CVA now recovered, history of triple bypass, and 2 coronary artery stent placement. Patient had colonoscopy done in 2016 at that time couple of polyps were removed, patient developed massive rectal bleed after that, probably from polypectomy site, patient is not aware and received 2 units of packed RBCs. Came for follow-up, complaining of mild headaches otherwise no fever, chills no nausea or vomiting no diarrhea constipation, no abdominal pain, no shortness of breath or chest pain, no blurred vision or double vision. Patient still smoke about a pack a day and recently more Medications: Aspirin 1 Tablet (of 81 mg) Oral daily, Atorvastatin Calcium 1 Tablet (of 20 mg) Oral at bedtime, Brilinta 1 Tablet (of 60 mg) Oral b.i.d., Cholecalciferol 1 Capsule (of 98924 Units) Oral q 7 days, Cyclobenzaprine HCl 2 Tablet (of 5 mg) Oral t.i.d., Januvia 1 Tablet (of 100 mg) Oral daily, Morphine Sulfate 1 Tablet (of 30 mg) Oral t.i.d. PRN, Multivitamin Adults 1 Tablet Oral daily, Narcan 1 spray(s) (of 4 mg/0.1mL) Liquid Nasal PRN, NexIUM 1 Capsule (of 40 mg) Capsule Delayed Release Oral daily, Nitrostat 1 Tablet (of 0.4 mg) Tablet, sublingual Sublingual PRN, Ondansetron HCl 1 Tablet (of 8 mg) Oral t.i.d. PRN, oxyCODONE HCl 1 Tablet (of 10 mg) Oral q 6 hours PRN, PROzac 1 Capsule (of 10 mg) Oral daily, Ranexa 1 Tablet (of 1000 mg) Tablet SR 12 HR Oral b.i.d., Reglan 1 Tablet (of 20 mg) Oral t.i.d., rOPINIRole HCl 1 Tablet (of 0.5 mg) Oral daily, Topamax 1 Tablet (of 75 mg) Oral b.i.d., Vascepa 1 Capsule (of 1 G) Oral b.i.d., Ventolin HFA 2 puff(s) (of 108 (90 base) mcg/act) Aerosol, solution Inhalation q 4 hours PRN Allergies: Imitrex, Latex, Pentazocine-Naloxone, quiNINE Sulfate, and traMADol HCl. Review of Systems: Review of Systems is not available for this patient. Vital Signs: Performed on Sep 13, 2020 10:36 Height - 62.50 in Weight - 184 lbs (HIGH) BSA - 1.86 sq.m BMI - 33.12 (HIGH) Temperature - 97.0 F (LOW) Pulse - 71 /min Respiration - 17 /min BP - 112/58 mm(hg) O2 Sat - 97 % Pain - 6 Performance Status: 1 - No physically strenuous activity, but ambulatory and able to carry out light or sedentary work (e.g. office work, light house work). (ECOG) Physical Examination: ENMT - No mouth sores, no thrush, no jaundice, Respiratory - Lungs are clear to auscultation, Cardiovascular - Regular rate and rhythm of heart, Abdomen - Soft, bowel sounds present, Extremities - No visible edema. Lab/Imaging: Test performed on Sep 10, 2020 10:26 RBC 5.64 10^6/uL HGB 16.6 g/dL HCT 51.9 % MCV 92 fl MCH 29.4 pg MCHC 32.0 g/dL RDW 13.4 % Platelet Count 282 10^3/uL MPV 10.1 fl Neutrophils 7.56 10^3/uL Lymphocytes 2.7 10^3/uL Monocytes 0.8 10^3/uL Eosinophils 0.1 10^3/uL Basophils 0.1 10^3/uL Neutrophil % 66.7 % Lymphocyte % 23.3 % Monocyte % 7.0 % Eosinophil % 1.0 % Basophils % 0.5 % NRBC 0.00 /100 WBC Test performed on Jun 13, 2020 09:18 WBC 9.1 10 3/uL NRBC % 0 % Impression: History of secondary polycythemia diagnosed in 2016, patient had Yvonne 2 mutation checked twice once on September 27, 2017 at [facility] medical oncology in [place],, it was negative and again second time on December 13, 2018 at [facility] in [place] and again it was noted detected History of CVA, now recovered X History of coronary artery disease, as per patient status post triple bypass, 2 coronary artery stents History of colonoscopy/polypectomy done in 2016, as per patient, she developed postprocedure rectal bleeding, requiring 2 units of packed RBC. Chronic smoking about half pack a day Plan: Discussed with patient regarding her labs white blood count 11.4 hemoglobin 16.6 hematocrit 51.9 compared to 49.3 previously platelets 282,000 Clinically, patient doing reasonably well now with mild headaches as per patient anytime her hematocrit go above 50 usually she gets symptoms, at this point,Considering history of CVA and coronary artery disease, we will proceed with phlebotomy with 500 cc and replacement with 250 cc normal saline and then repeat every 2 weeks to keep her hematocrit less than 45 in the meantime we will consider checking her erythropoietin level, ultrasound spleen, JAK2 exon 12 mutation, if she has splenomegaly and erythropoietin level lower than normal even with a JAK2 mutation negative, she will meet criteria for JAK2 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 She return to clinic in 1 month with CBC and with erythropoietin level, ultrasound spleen and JAK2 exon 12 mutation report Patient was advised to quit smoking and was offered any assistance she may need. And she is taking daily aspirin and she was also advised to maintain hydration. Signed By: Chastity Fernandez M.D. <<Signature on File>>
[2020-09-16 12:38] LABS: Erythropoietin 14.7 mIU/mL (2.6-18.5)
[2020-09-21 22:28] LABS: CALR Exon 9 Mutation NOT DETECTED (NOT DETECTED); CSF3R Exon 14/17 Mutation NOT DETECTED (NOT DETECTED); JAK2 Exon 12 Mutation NOT DETECTED (NOT DETECTED); JAK2 V617 Block Specimen ID NG; JAK2 V617 Clinical Indication NG; JAK2 V617 Mutation NOT DETECTED (NOT DETECTED); JAK2 V617 Specimen Source NG; MPL Exon 12 Mutation NOT DETECTED (NOT DETECTED)
== END 2020-09-13 09:32 | disposition home or self-care (01) ==
LOC: ONCMED 09:34
PROVIDERS: PCP Family Medicine; Visit Provider Internal Medicine Hematology & Oncology
DX: D75.1 Secondary polycythemia (principal); F17.210 Nicotine dependence, cigarettes, uncomplicated; R51.9 Headache, unspecified; Z86.73 Personal history of transient ischemic attack (TIA), and cerebral infarction without residual deficits; Z95.1 Presence of aortocoronary bypass graft; Z95.5 Presence of coronary angioplasty implant and graft; Z86.79 Personal history of other diseases of the circulatory system
CPT/HCPCS: 82668; 86225; 99195; 99214; J7050

== ENCOUNTER 2020-09-26 07:22 | Outpatient (CLI) | payer MEDICARE, MEDICAID, SELFPAY ==
--- NOTE | 2020-09-26 07:26 | US_ITS ---
WS: [id number] Complete ABDOMINAL ULTRASOUND HISTORY: POLYCYTHEMIA ABDOMEN-FOCUS ON SPLEEN COMPARISON: None available. Liver: 19.3 cm in length. Mildly enlarged liver with mildly coarsened echotexture. No mass or bile du ct dilatation. Gallbladder: Prior cholecystectomy. Pancreas: Poorly visualized. No abnormality identified. CBD: 0.6 cm. Right kidney: 13.2 cm x 5.8 cm x 5.6 cm. No mass, cortical thickening or hydronephrosis. Left kidney: 11.1 cm x 4.8 cm x 4.8 cm. No mass, cortical thickening or hydronephrosis. Spleen: Spleen is normal size measuring 12.5 cm in length. Abdominal aorta and IVC are within normal limits. No ascites. US/US abdomen complete* [id number] IMPRESSION: 1. Normal size spleen. 2. Mild hepatic steatosis and hepatomegaly. 3. Prior cholecystectomy.
== END 2020-09-26 07:23 | disposition home or self-care (01) ==
LOC: US 07:22
PROVIDERS: PCP Family Medicine; Visit Provider Internal Medicine Hematology & Oncology
DX: D75.1 Secondary polycythemia (principal); K76.0 Fatty (change of) liver, not elsewhere classified; R16.0 Hepatomegaly, not elsewhere classified; Z90.49 Acquired absence of other specified parts of digestive tract
CPT/HCPCS: 76700

== ENCOUNTER 2020-09-27 06:06 | Outpatient (CLI) | payer MEDICARE, MEDICAID, SELFPAY ==
[2020-09-27 08:51] LABS: Basophils # 0.1 10^3/uL (0.0-0.1); Basophils % 0.6 %; Eosinophils # 0.1 10^3/uL (0.0-0.8); Eosinophils % 1.2 %; Hematocrit 44.4 % (37.0-47.0); Hemoglobin 14.5 g/dL (11.5-15.3); Lymphocytes # 2.3 10^3/uL (0.8-4.8); Lymphocytes % 23.7 %; Mean Corpuscular HGB Conc 32.7 g/dL (30.0-36.0); Mean Corpuscular Hemoglobin 29.6 pg (28.0-34.0); Mean Corpuscular Volume 90.6 fL (81-99); Mean Platelet Volume 9.6 fL (7.4-10.4); Monocytes # 0.6 10^3/uL (0.2-0.9); Monocytes % 6.3 %; Neutrophils # 6.55 10^3/uL (1.8-7.7); Neutrophils % 67.1 %; Nucleated Red Blood Cells % 0 %; Platelet Count 271 10^3/cmm (130-400); Red Cell Distribution Width 13.7 % (12.1-15.1); White Blood Count 9.8 10^3/uL (4.0-10.0)
== END 2020-09-27 06:07 | disposition home or self-care (01) ==
LOC: ONCMED 06:10
PROVIDERS: PCP Family Medicine; Visit Provider Internal Medicine Medical Oncology
DX: D75.1 Secondary polycythemia (principal)
CPT/HCPCS: 36415; 85025

== ENCOUNTER 2020-10-11 06:11 | Outpatient (CLI) | payer MEDICARE, MEDICAID, SELFPAY ==
[2020-10-11] MEDS: sodium chloride 0.9% 250 ML 999 ML IV (08:20)
[2020-10-11 08:39] LABS: Basophils # 0.1 10^3/uL (0.0-0.1); Basophils % 0.6 %; Eosinophils # 0.1 10^3/uL (0.0-0.8); Eosinophils % 1.5 %; Hematocrit 47.1 % (37.0-47.0); Hemoglobin 15.5 g/dL (11.5-15.3); Lymphocytes # 2.6 10^3/uL (0.8-4.8); Lymphocytes % 32.9 %; Mean Corpuscular HGB Conc 32.9 g/dL (30.0-36.0); Mean Corpuscular Hemoglobin 29.9 pg (28.0-34.0); Mean Corpuscular Volume 90.8 fL (81-99); Mean Platelet Volume 9.8 fL (7.4-10.4); Monocytes # 0.5 10^3/uL (0.2-0.9); Monocytes % 6.3 %; Neutrophils # 4.52 10^3/uL (1.8-7.7); Neutrophils % 57.8 %; Nucleated Red Blood Cells % 0 %; Platelet Count 263 10^3/cmm (130-400); Red Blood Count 5.19 10^6/uL (4.1-5.3); Red Cell Distribution Width 13.4 % (12.1-15.1); White Blood Count 7.8 10^3/uL (4.0-10.0)
== END 2020-10-11 06:12 | disposition home or self-care (01) ==
LOC: ONCMED 06:14
PROVIDERS: PCP Family Medicine; Visit Provider Internal Medicine Medical Oncology
DX: D75.1 Secondary polycythemia (principal)
CPT/HCPCS: 36415; 85025; 99195; J7050

== ENCOUNTER 2020-10-21 06:10 | Outpatient (CLI) | payer MEDICARE, MEDICAID, SELFPAY ==
--- NOTE | 2020-10-21 17:07 | ONC FU_ITS ---
Dr. Fernandez follow up note Patient: Susie Castro Unit #: [id number]: 1965 Dicatated By: Chastity Fernandez M.D.Date of Visit:Oct 21, 2020 Onc Med Follow-up/Prog Note History of Present Illness: Mrs. Jackson???e Matthew, is a 55-year-old female with history of elevated hemoglobin was diagnosed with polycythemia in 2016 in [place] by Dr. Lunsford and she was started on phlebotomies every 3 month since then and last phlebotomy was done on 12/18/2018 . 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 Patient has been tolerating phlebotomies with a 500 mL every 3 months well as per patient she was told that they want to keep her hematocrit from 33, not sure patient understood well as usual recommendations are 42-45. But we'll obtain record from Dr. Lunsford's/ 's office She has history of CVA now recovered, history of triple bypass, and 2 coronary artery stent placement. Patient had colonoscopy done in 2016 at that time couple of polyps were removed, patient developed massive rectal bleed after that, probably from polypectomy site, patient is not aware and received 2 units of packed RBCs. MPS panel including JAK2 mutation done on September 13, 2020 showed no abnormality erythropoietin level 14.7, normal being 2.6-18.5 abdominal sonogram shows no splenomegaly Came for follow-up, denies any specific complaint except generalized weakness and fatigue, patient still smoke about pack a day, no headaches no blurred vision no double vision, no focal weakness or numbness. No fever chills Medications: Aspirin 1 Tablet (of 81 mg) Oral daily, Atorvastatin Calcium 1 Tablet (of 20 mg) Oral at bedtime, Brilinta 1 Tablet (of 60 mg) Oral b.i.d., Cholecalciferol 1 Capsule (of 45096 Units) Oral q 7 days, Cyclobenzaprine HCl 2 Tablet (of 5 mg) Oral t.i.d., Januvia 1 Tablet (of 100 mg) Oral daily, Morphine Sulfate 1 Tablet (of 30 mg) Oral t.i.d. PRN, Multivitamin Adults 1 Tablet Oral daily, Narcan 1 spray(s) (of 4 mg/0.1mL) Liquid Nasal PRN, NexIUM 1 Capsule (of 40 mg) Capsule Delayed Release Oral daily, Nitrostat 1 Tablet (of 0.4 mg) Tablet, sublingual Sublingual PRN, Ondansetron HCl 1 Tablet (of 8 mg) Oral t.i.d. PRN, oxyCODONE HCl 1 Tablet (of 10 mg) Oral q 6 hours PRN, PROzac 1 Capsule (of 10 mg) Oral daily, Ranexa 1 Tablet (of 1000 mg) Tablet SR 12 HR Oral b.i.d., Reglan 1 Tablet (of 20 mg) Oral t.i.d., rOPINIRole HCl 1 Tablet (of 0.5 mg) Oral daily, Vascepa 1 Capsule (of 1 G) Oral b.i.d., Ventolin HFA 2 puff(s) (of 108 (90 base) mcg/act) Aerosol, solution Inhalation q 4 hours PRN Allergies: Imitrex, Latex, Pentazocine-Naloxone, quiNINE Sulfate, and traMADol HCl. Review of Systems: Review of Systems is not available for this patient. Vital Signs: Performed on Oct 21, 2020 15:36 Height - 62.50 in Weight - 182.6 lbs (LOW) BSA - 1.85 sq.m BMI - 32.87 (HIGH) Temperature - 96.7 F (LOW) Pulse - 80 /min Respiration - 18 /min BP - 129/67 mm(hg) O2 Sat - 96 % Pain - 0 Fatigue - 7 Performance Status: 1 - No physically strenuous activity, but ambulatory and able to carry out light or sedentary work (e.g. office work, light house work). (ECOG) Physical Examination: ENMT - No mouth sores, no thrush, no jaundice, Respiratory - Poor air entry otherwise clear, Cardiovascular - Regular rate and rhythm of heart, Abdomen - Soft, bowel sounds present, Extremities - No visible edema. Lab/Imaging: Test performed on Sep 27, 2020 08:40 WBC 9.8 10 3/uL RBC 4.90 10 6/uL HGB 14.5 g/dL HCT 44.4 % MCV 90.6 fL MCH 29.6 pg MCHC 32.7 g/dL RDW 13.7 % Platelet Count 271 10 3/cmm MPV 9.6 fL Neutrophils 6.55 10 3/uL Lymphocytes 2.3 10 3/uL Monocytes 0.6 10 3/uL Eosinophils 0.1 10 3/uL Basophils 0.1 10 3/uL Neutrophil % 67.1 % Lymphocyte % 23.7 % Monocyte % 6.3 % Eosinophil % 1.2 % Basophils % 0.6 % NRBC % 0 % Test performed on Sep 10, 2020 10:26 NRBC 0.00 /100 WBC Impression: History of secondary polycythemia diagnosed in 2017, patient had Yvonne 2 mutation checked twice once on September 27, 2017 at [facility] medical oncology in [place],, it was negative and again second time on December 13, 2018 at [facility] in [place] and again it was noted detected MPS panel done on September 13, 2020 showed no mutation in CALR exon 9, exon 12, exon 10, CSF3R EX14/17, SPEC shows mutation not detected, erythropoietin level 14.7, abdominal sonogram done on September 26, 2020 shows normal spleen size History of CVA, now recovered X History of coronary artery disease, as per patient status post triple bypass, 2 coronary artery stents History of colonoscopy/polypectomy done in 2016, as per patient, she developed postprocedure rectal bleeding, requiring 2 units of packed RBC. Chronic smoking about half pack a day Plan: Discussed with patient regarding her labs white blood count 8.5 hemoglobin 15 hematocrit 46.1, platelets 316,000 and repeat MPS panel showed no JAK2 mutation no MPL exon 10 mutation, erythropoietin 14.7, abdominal sonogram shows no splenomegaly Clinically, patient has no new signs symptoms, her repeat myeloproliferative panel showed no evidence of JAK2 mutation or other mutations commonly seen in myeloproliferative disorder, no evidence of splenomegaly on abdominal sonogram,, clinically it appears patient has secondary polycythemia probably due to chronic heavy smoking. But there was a concern about history of CVA and other concern was whether she has JAK2 mutation negative polycythemia vera but with normal spleen size and erythropoietin in the upper side of normal range, would not supported rather indicate secondary polycythemia probably due to chronic smoking as mentioned above, patient was advised to quit smoking and was offered any assistance she may need, patient return to clinic in 2 months with CBC and will keep her hemoglobin/hematocrit less than 50, as per patient usually she gets headaches once her hematocrit go beyond 50. Signed By: Chastity Fernandez M.D. <<Signature on File>>
== END 2020-10-21 06:11 | disposition home or self-care (01) ==
PROVIDERS: PCP Family Medicine; Visit Provider Internal Medicine Hematology & Oncology
DX: D75.1 Secondary polycythemia (principal); I25.10 Atherosclerotic heart disease of native coronary artery without angina pectoris; Z95.5 Presence of coronary angioplasty implant and graft; F17.210 Nicotine dependence, cigarettes, uncomplicated; Z86.73 Personal history of transient ischemic attack (TIA), and cerebral infarction without residual deficits; Z79.899 Other long term (current) drug therapy
CPT/HCPCS: 36415; 99214

== ENCOUNTER 2020-10-24 08:32 | Outpatient (CLI) | payer MEDICARE, MEDICAID, SELFPAY ==
[2020-10-21 14:09] LABS: Basophils # 0.1 10^3/uL (0.0-0.1); Basophils % 0.6 %; Eosinophils # 0.1 10^3/uL (0.0-0.8); Eosinophils % 1.3 %; Hematocrit 46.1 % (37.0-47.0); Lymphocytes # 3.2 10^3/uL (0.8-4.8); Lymphocytes % 38.1 %; Mean Corpuscular HGB Conc 32.5 g/dL (30.0-36.0); Mean Corpuscular Hemoglobin 29.6 pg (28.0-34.0); Mean Corpuscular Volume 90.9 fL (81-99); Mean Platelet Volume 9.9 fL (7.4-10.4); Monocytes # 0.6 10^3/uL (0.2-0.9); Monocytes % 7.5 %; Neutrophils # 4.39 10^3/uL (1.8-7.7); Neutrophils % 51.6 %; Nucleated Red Blood Cells % 0 %; Platelet Count 316 10^3/cmm (130-400); Red Blood Count 5.07 10^6/uL (4.1-5.3); Red Cell Distribution Width 13.4 % (12.1-15.1); White Blood Count 8.5 10^3/uL (4.0-10.0)
--- NOTE | 2020-10-24 09:30 | MM_ITS ---
WS: [id number] BILATERAL SCREENING DIGITAL MAMMOGRAM WITH CAD HISTORY: Z12.39 - Encounter for other screening for malignant neoplasm of breast COMPARISON: 05/24/2019 and 04/28/2010 Bilateral CC and MLO views submitted. Computer aided detection analyzed. Breast composition: There are scattered areas of fibroglandular density. No suspicious masses, microc alcifications or architectural distortion. MM/[place] [id number] IMPRESSION: BI-RADS: 1-Negative FOLLOW UP: 1 Year Follow-up
== END 2020-10-24 08:33 | disposition home or self-care (01) ==
LOC: RADSHAW 08:37
PROVIDERS: Internal Medicine Hematology & Oncology; PCP Family Medicine; Visit Provider Family Medicine
DX: Z12.31 Encounter for screening mammogram for malignant neoplasm of breast (principal); J44.9 Chronic obstructive pulmonary disease, unspecified; D45 Polycythemia vera
CPT/HCPCS: 77067; 85025

== ENCOUNTER 2020-11-04 12:53 | Outpatient (CLI) | payer MEDICARE, MEDICAID, SELFPAY ==
--- NOTE | 2020-11-04 13:30 | CT_ITS ---
WS: [id number] CT ANGIOGRAM CEREBRAL AND CAROTID ARTERIES NONCONTRAST CT HEAD. HISTORY: G45.9 - Transient cerebral ischemic attack, unspecified TECHNIQUE: CT angiogram is performed of the carotid and cerebral arteries. During arterial injection imaging is obtained from the skull vertex to the aortic arch in 1.25 mm imaging. Coronal and sagittal reformats are submitted. Additional multi planar reformats of the carotid and cerebral arteries are submitted, MIP imaging also reviewed. NASCET criteria utilized. All CT scans at [facility] use at least one of these dose optimization techniques: automated exposure control; mA and/or kV ad justment per patient size (includes targeted exams where dose is matched to clinical indication); or iterative reconstruction. CONTRAST: Omnipaque 350; 95 mL IV. DLP: 1947.85 mGycm COMPARISON: None available. Noncontrast CT head is negative for hemorrhage or mass effect or midline shift. Normal ventricles. Carotid Angiogram: Right carotid: Common carotid artery: Arises normally from the innominate artery. No significant plaque or stenosis. Internal carotid artery: No plaque or stenosis. External carotid artery: Patent. Left carotid: Common carotid artery: Arises from the base of the innominate. No stenosis. Internal carotid artery: Small noncalcified plaque at the bifurcation with intimal thickening. No josiah nosis. External carotid artery: Patent. Right vertebral artery: Unremarkable. Left vertebral artery: Small caliber LEFT vertebral artery. Poorly visualized and may be occluded or very high-grade stenosis in the transverse foramina at C4-5. Subclavian arteries: No stenosis or significant abnormality. Upper thorax: Normal. Thyroid gland: Normal. Osseous structures: Mild straightening of the cervical lordosis. CEREBRAL ANGIOGRAM: Intracranial vertebral arteries: Very small caliber distal LEFT vertebral artery. Normal caliber RIGH T vertebral artery. Basilar artery: No significant stenosis or occlusion. No aneurysm. Intracranial Internal carotid arteries: Scattered calcified plaque through the cavernous sinuses and supraclinoid carotids. No high-grade stenosis. Middle cerebral arteries: Normal. Anterior cerebral arteries and ACOM: Normal. Posterior cerebral arteries and PCOM's: Normal. Dural venous sinuses are normally enhancing. Mastoid air cells: Normal. Paranasal sinuses: Normal. Calvarium: Normal. CT/CT angio headneck* [id number] IMPRESSION: 1. Mild atherosclerotic plaque in the LEFT extracranial carotid artery. No sig nificant stenosis. Normal RIGHT ICA. 2. Mild scattered calcified plaque in the intracranial carotid arteries, yanelis nous and supraclinoid. No high-grade stenosis. 3. No aneurysms. 4. Very small caliber LEFT vertebral artery with a focal high-grade stenosis o r occlusion in the LEFT C4-5 transverse foramina.
[2020-11-04] MEDS: iohexol 350 mg/mL 100 mL Btl IV (13:50)
== END 2020-11-04 12:54 | disposition home or self-care (01) ==
PROVIDERS: PCP Family Medicine; Visit Provider Specialist
DX: G45.9 Transient cerebral ischemic attack, unspecified (principal)
CPT/HCPCS: 70496; 70498; Q9967

== ENCOUNTER 2020-11-05 20:00 | Outpatient (CLI) | payer MEDICARE, MEDICAID, SELFPAY | END 2020-11-05 20:01 | disposition home or self-care (01) | LOC: SLEEP 11-06 10:10 | PROVIDERS: PCP Family Medicine; Visit Provider Family Medicine | DX: G47.33 Obstructive sleep apnea (adult) (pediatric) (principal) | CPT/HCPCS: 95811 ==

== ENCOUNTER 2020-11-22 08:59 | Outpatient (CLI) | payer MEDICARE, MEDICAID, SELFPAY ==
[2020-11-22 09:22] VITALS: BMI 32.9
--- NOTE | 2020-11-22 09:25 | NMCV_ITS ---
NM elizabeth perf SPECT r/s* [id number] Susie Castro Age: 55 Gender: F : 1965 Exam Date: 11/22/2020 09:25 Ordering Phys: Glo Martin MD ([email or web address]) Technologist: PARAG Shay Exam Location: [facility] Indications: CHEST PAIN STRESS TEST Please see separate stress test report in [facility] for full findings IMAGE PROTOCOL Rest/Stress 1 Lexiscan Day Radiopharmaceutical Dose (mCi) Administration Site Administered by Rest: Tc-99m 11.0 IV PARAG Shay Sestamibi Stress:Tc-99m 32.5 IV PARAG Paz Sestamibi Rest: 22-Nov-2020 60 Discovery 630 Stress: 22-Nov-2020 30 Discovery 630 0.4mg Lexiscan. Images obtained in supine and prone position. SPECT RESULTS Technical Quality: Excellent Raw Data Analysis: Breast attenuation Image Corrections: No attenuation or motion correction applied Summed Stress Score: 13 Summed Rest Score: 5 Summed Difference Score: 8 PERFUSION FINDINGS Medium sized perfusion abnormality of mild to moderate severity of mid lateral, apical lateral and apical sánchez on rest images with reversibility noted in mid to apical anterior, basal to mid anterolateral, basal to mid inferolateral and apical lateral ásnchez on supine stress images. There is somewhat improved tracer uptake in mid anterior wall on stress images. FUNCTIONAL RESULTS (calculated via Gated SPECT) Stress Image LV EF (%): 71 Stress EDV (mL):83 TID: 1.18 Stress ESV (mL):24 FUNCTIONAL FINDINGS: The left ventricle is normal in size. Transient Ischemia Dilatation of 1.2. There is normal left ventricular systolic function. The left ventricular ejection fraction is normal with a value of 71%. There is normal left ventricular wall thickening with no regional wall motion abnormality. Normal end-diastolic and end-systolic volumes. IMPRESSIONS 1. Medium sized partially reversible perfusion abnormality of moderate severity of mid lateral, apical lateral and apical sánchez. This is likely suggestive of myocardial infarction in left anterior descending artery territory with moderate raymond-infarct ischemia. 2. Small sized perfusion abnormality of mild severity in mid to apical anterior with somewhat improved tracer uptake on prone stress images. This may represent breast attenuation artifact. 3. Overall left ventricular systolic function is normal without regional wall motion abnormalities, LVEF=71%. 4. Transient ischemic dilation index mildly elevated at 1.2. 5. These findings appear to be new when compared to prior study dated 10/31/2018. Glo Martin MD (Electronically Signed) Final Date: 26 Nov 2020 18:34 S
--- NOTE | 2020-11-22 09:25 | ECG_ITS ---
[facility] Test Date: 2020-11-22 Pat Name: Ssuie Castro Department: Room: Gender: Female Director Clinical Data: : 1965 Requested By: Glo Martin Order Number: [id number] Yonis MD: Glo Martin M.D. Interpretive Statements NAME OF STUDY: LEXISCAN SESTAMIBI STRESS TEST INDICATION: Chest pain and shortness of breath PROCEDURE: At the baseline, the blood pressure was 131/75 mmHg with a heart rate of 61 bpm. The electrocardiogram showed normal sinus rhythm, normal axis. Right bundle branch block. The Lexiscan was infused over a period of 20 seconds. A total of 0.4 milligrams of Lexiscan was infused. The stress phase was continued for a total of 5 minutes. Heart rate at the end of the stress phase was 73 bpm with a blood pressure of 119/57 mmHg. The EKG at the peak infusion revealed sinus rhythm with no significant ST-T wave changes. Sestamibi was injected 20 seconds after the Lexiscan infusion. Blood pressure at the end of the recovery phase was 104/46 mmHg with a heart rate of 70 beats per minute. CONCLUSION: 1. No significant EKG changes with the LexiScan infusion. 2. No LexiScan induced chest pain or cardiac arrhythmia. 3. Normal blood pressure and heart rate response. 4. Sestamibi/sestamibi perfusion scan pending; see separate report. Electronically Signed On 11-26-2020 18:21:25 CDT by Glo Martin M.D. [id number]
[2020-11-22] MEDS: regadenoson 0.4 Mg/5 ml Syringe IVP (11:22)
[2020-11-22 11:25] VITALS: BP 104/46; PULSE 67
== END 2020-11-22 09:00 | disposition home or self-care (01) ==
LOC: CDL 09:00
PROVIDERS: PCP Family Medicine; Visit Provider Internal Medicine Cardiovascular Disease
DX: R07.9 Chest pain, unspecified (principal)
CPT/HCPCS: 78452; 93017; A9500; J2785

== ENCOUNTER → 2020-12-16 11:00 | Outpatient (BNVA) | payer MEDICARE, MEDICAID, SELFPAY | PROVIDERS: PCP Family Medicine; Visit Provider Internal Medicine Cardiovascular Disease | DX: I25.810 Atherosclerosis of coronary artery bypass graft(s) without angina pectoris (principal); R07.9 Chest pain, unspecified; I10 Essential (primary) hypertension; E78.2 Mixed hyperlipidemia; E11.49 Type 2 diabetes mellitus with other diabetic neurological complication; D45 Polycythemia vera; F17.210 Nicotine dependence, cigarettes, uncomplicated | CPT/HCPCS: 80048; 85025; 85610; 87635 ==

== ENCOUNTER 2020-12-23 09:21 | Inpatient (IN) | payer MEDICARE, MEDICAID, SELFPAY ==
[2020-12-23] VITALS (16 sets, daily range): BP systolic 105–151; BP diastolic 57–88; PULSE 56–72; RESP 10–18; TEMP 36.6; O2SAT 95–97
--- NOTE | 2020-12-23 06:00 | XACV_ITS ---
Ht: 157 cm Wt: 85 kg BSA: 1.96 m2 Gender: Female : 1965 Any Known Allergies: Other Exam Priority: Routine Procedure(s): Procedure Description: Diagnostic procedure Procedure Description: Left Heart Catheterization Diagnostic Cath Status: Elective Diagnostic Findings * No disease noted in the Left Main, Left Anterior Descending, Right, or Circumflex coronary arteries. * 1st Diagonal: subtotal occlusion, JAVIER: 0 flow. * Ascending Aorta to 1st Diagonal graft: patent. * One graft visualized. * Coronary angiography shows right dominance. Conclusions 1. No disease noted in the Left Main, Left Anterior Descending, Right, or Circumflex coronary arteries. 2. One coronary graft visualized: all grafts patent. 3. Patient has prior CABG. Recommendations * Continue current medical management and risk factor modification. Clinical Evaluation EBL: 5mL-10mL Procedural Details Procedure Consent Obtained. Admit Source: Out Patient. Pre-Procedure Time Out. Identified patient by full name and date of as verbalized by the patient/guarantor. Does the consent match the physician's order: Yes. Accurate & Complete Informed Consent: Yes. Inpatient/Outpatient History & Physical on Chart: Yes. If H&P is completed, is and addenduem needed: Yes; If yes, is the addendum complete: N/A. Visualize and Verify Site with Patient/Guarantor: N/A. Relevant Radiology Images available: N/A. Pre-op teaching completed and patient verbalized understanding. The risks, benefits, and alternatives of sedation and/or procedure were discussed by physician. The patient agrees to continue. Procedure started. Correct patient, site and procedure confirmed by cath team. PERRLA. 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 Lungs clear x 5 lobes. IV Site on Arrival: 20 gauge in the left anticubital. Pre Procedural Pulses: bilateral dorsalis pedis was 3+. Pre Procedural Pulses: bilateral posterior tibial was 3+. Pre Procedural Pulses: right radial was 3+. Oxygen started at 2liters/min via nasal canula. bilateral groins was prepped with chloroprep then draped in the usual sterile fashion. Physician notified. Baseline sample Acquired. HR: 0 BPM. Physician arrived. [facility] Clinical Fraility Score: 3: Managing Well. 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 Chest Pain Symptom Assessment: Typical Angina Symptoms. Cardiovascular Instability: No. Physician scrubbed in. Immediate Pre-Procedure Time Out. Correct Patient: Yes; Correct Procedure: Yes; Correct Site: Yes; Correct Patient Position: Yes; Correct Supplies: Yes; Dried Flammable Prep: Yes; Blood Products Available: N/A;. Lidocaine 1% infiltrated to the right groin. Arterial access obtained with micropuncture set. A 5 djiboutian JL4 catheter in over wire. SVG's to Diaganol visualized and patent. Multiple views taken of left coronary artery. Catheter out. A 5 djiboutian JR4 catheter in over wire. Multiple views taken of right coronary artery. Catheter out. Dr. Rosario reviewing pictures. Sheath(s) sutured into position with 2-0 silk and sterile 4x4's and Op-site applied over the site. No oozing or signs and symptoms of hematoma noted. Arterial sheath flushed and connected to tranducer and pressure bag with heparinized saline. Post Procedure: Pulses reassessed and unchanged. PERRLA. 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 No VTE prophylaxis required. Medication's Wasted: Lidocaine 1% = 10 mL. Medication's Wasted: Heparin = 4000 units. Total IV fluids: 21.5 mL. Contrast type used: Omnipaque 300 mgI/mL, 500 mL bottle. Contrast Material : Omnipaque 205 ml. A Suture was successful obtaining hemostatsis at the Right Femoral artery insertion site. Post-op diagnosis: patent 2 vessel graft, no significant stenosis. Complications: none. Estimated blood loss: 5mL-10mL. Procedure completed. Patient transferred by bed to ICU. Vital chart was stopped. Access Site Site: Right Femoral artery Sheath Size: 6 Fr Hemostasis Method: Suture Hemostasis Success: Successful Procedure Medications Start: 7:32 AM Stop: 7:32 AM Medication: Versed Amount: 1 mg Route: I.V. Start: 7:32 AM Stop: 7:32 AM Medication: Fentanyl Amount: 50 mcg Route: I.V. Start: 7:35 AM Stop: 7:35 AM Medication: Versed Amount: 2 mg Route: I.V. Start: 7:35 AM Stop: 7:35 AM Medication: Fentanyl Amount: 50 mcg Route: I.V. Start: 7:41 AM Stop: 7:41 AM Medication: Versed Amount: 1 mg Route: I.V. Start: 7:41 AM Stop: 7:41 AM Medication: Fentanyl Amount: 50 mcg Route: I.V. I, the attending physician, have reviewed and verified all procedure medications. Yes, all medications given per verbal order History/Risk Factors Hypertension: Yes Dyslipidemia: Yes Myocardial Infarction (SC): Yes Tobacco Use: Current/Recent(w/in 1 year) Prior Interventions CABG: Yes Report Signatures Finalized by Cheryl Rosario MD on 01/05/2021 05:16 PM
[2020-12-23] MEDS: diphenhydrAMINE 50 mg Capsule PO (06:38)
--- NOTE | 2020-12-23 07:31 | W.PM.OPSUD ---
Surgery/Procedure H&P Update DATE OF PROCEDURE: December 23, 2020 DATE H&P PERFORMED: 12/16/20 H&P UPDATE INFORMATION: I have reviewed H&P completed within last 30 days, I have examined patient prior to procedure and No changes to prior documentation PREOP DIAGNOSIS: Worsening of angina/abnormal stress test/history of CABG and PCI PLANNED PROCEDURE: Operation Date: 12/23/20 07:00 Proposed Procedures p Left Cardiac Catheterization 06402 I25.10(Left) - Cheryl Rosario MD PATIENT REASSESSED PRIOR TO SEDATION, WITH NO CHANGE NOTED: Yes PHYSICAL EXAM: alert, oriented x 3 and clear to auscultation bilaterally AIRWAY EVAL/ANESTHESIA PLAN: ASA II and Risks, benefits & alternatives of sedation and/or procedure discussed ADDITIONAL INFORMATION: All risk benefit and alternative of the procedures was explained by myself including 2% risk of stroke major minor bleed urgent emergent bypass. Patient agreed to it and would like to proceed with it.
[2020-12-23] MEDS: sodium chloride 0.9% 1,000 ML 50 ML IV (10:07)
[2020-12-23] MEDS: oxyCODONE 5 mg IR Tab/Cap 10 MG PO (12:54)
[2020-12-23] MEDS: nicotine 21 mg Patch 1 PATCH TRANSDERMA (13:59)
[2020-12-23] MEDS: metoclopramide 10 mg Tablet PO (14:00)
--- NOTE | 2020-12-23 14:28 | PC.NURSE ---
Dr. Rosario in room, visiting with pt.
--- NOTE | 2020-12-23 14:42 | PC.NURSE ---
Pt discharged home. All questions answered.
== END 2020-12-23 14:41 | disposition home or self-care (01) | DRG 287 ==
LOC: ICU 09:21
PROVIDERS: Admitting Provider Internal Medicine Cardiovascular Disease; PCP Family Medicine; Visit Provider Internal Medicine Cardiovascular Disease
PROC: 4A023N7 Measurement of Cardiac Sampling and Pressure, Left Heart, Percutaneous Approach (ICD-10-PCS; principal; 2020-12-23 07:00)
DX: I25.810 Atherosclerosis of coronary artery bypass graft(s) without angina pectoris (principal); I25.10 Atherosclerotic heart disease of native coronary artery without angina pectoris; Z95.5 Presence of coronary angioplasty implant and graft; Z95.1 Presence of aortocoronary bypass graft; G47.33 Obstructive sleep apnea (adult) (pediatric); Z79.51 Long term (current) use of inhaled steroids; Z79.891 Long term (current) use of opiate analgesic; K59.09 Other constipation; J44.9 Chronic obstructive pulmonary disease, unspecified; E11.9 Type 2 diabetes mellitus without complications; K21.9 Gastro-esophageal reflux disease without esophagitis; E78.5 Hyperlipidemia, unspecified; F32.9 Major depressive disorder, single episode, unspecified; D45 Polycythemia vera; G25.81 Restless legs syndrome; E55.9 Vitamin D deficiency, unspecified; F17.210 Nicotine dependence, cigarettes, uncomplicated
CPT/HCPCS: 36415; 93455; C1769; C1887; C1894; J1644; J2250; J3010; J7030; J8597; Q0163; Q9967

== ENCOUNTER 2020-12-26 10:35 | Outpatient (CLI) | payer MEDICARE, MEDICAID, SELFPAY ==
[2020-12-26 11:16] LABS: Basophils % 0.5 %; Eosinophils # 0.1 10^3/uL (0.0-0.8); Eosinophils % 1.5 %; Hematocrit 47.8 % (37.0-47.0); Hemoglobin 15.4 g/dL (11.5-15.3); Lymphocytes # 2.2 10^3/uL (0.8-4.8); Lymphocytes % 27.6 %; Mean Corpuscular HGB Conc 32.2 g/dL (30.0-36.0); Mean Corpuscular Hemoglobin 28.9 pg (28.0-34.0); Mean Corpuscular Volume 89.7 fL (81-99); Mean Platelet Volume 9.7 fL (7.4-10.4); Monocytes # 0.5 10^3/uL (0.2-0.9); Monocytes % 6.3 %; Neutrophils # 5.12 10^3/uL (1.8-7.7); Neutrophils % 63.1 %; Nucleated Red Blood Cells % 0 %; Platelet Count 260 10^3/cmm (130-400); Red Blood Count 5.33 10^6/uL (4.1-5.3); White Blood Count 8.1 10^3/uL (4.0-10.0)
--- NOTE | 2020-12-26 11:25 | PC.RESP ---
SMOKING CESSATION AND PULMONARY REHAB INFORMATION SENT TO PATIENT.
[2020-12-26 11:42] LABS: Iron 54 ug/dL (37-145); Percent Saturation 17.7 % (20-50); Total Iron Binding Capacity 305 mcg/dl; Unsaturated Iron Binding 251 ug/dL (112-347)
--- NOTE | 2021-01-07 23:53 | ONC FU_ITS ---
Jessica Kang Patient Note Patient: Susie Castro Unit #: [id number]: 1965 Dictated By: Cipriano BrenannDate of Visit: Dec 26, 2020 Onc MED Follow-Up/Prog Note Chief Complaint: Polycythemia vera History of Present Illness: Mrs. Jackson???e Matthew, is a 55-year-old female with history of elevated hemoglobin was diagnosed with polycythemia in [address] [place] [address] Lunsford and she was started on phlebotomies every 3 month since then and last phlebotomy was done on 12/18/2018 . As per patient from [place] she moved to [facility] where she saw Dr. hernandez, yarn spinner, he continued with phlebotomies every 3 month. Patient has been tolerating phlebotomies with a 500 mL every 3 months well as per patient she was told that they want to keep her hematocrit from 33, not sure patient understood well as usual recommendations are 42-45. But we'll obtain record from Dr. Lunsford's/ 's office She has history of CVA now recovered, history of triple bypass, and 2 coronary artery stent placement. Patient had colonoscopy done in 2016 at that time couple of polyps were removed, patient developed massive rectal bleed after that, probably from polypectomy site, patient is not aware and received 2 units of packed RBCs. MPS panel including JAK2 mutation done on September 13, 2020 showed no abnormality erythropoietin level 14.7, normal being 2.6-18.5 abdominal sonogram shows no splenomegaly She is here today for 3-month follow-up. She has no new concerns today. She denies any hot flashes or mood swings. She states she has not had any fever or chills. She has some occasional palpitations but states this has been normal for me . She does not feel that they are getting worse and she has had no syncopal or near syncopal episodes. She states overall she feels good. She denies any diarrhea or constipation. She has had no bladder changes. She denies any skin rashes or lesions. She states she is eating good and remains active around her house. ECOG is 1. ee Past Medical History: Chronic obstructive pulmonary disease Degenerative disease of the spine Gastroesophageal reflux disease Hyperlipidemia Osteoarthritis Stroke Type II diabetes Vitamin d deficiency Past Surgical History: Caesarean section Cholecystectomy Coronary artery bypass Hysterectomy Left shoulder repair Tonsillectomy Allergies: Imitrex, Latex, Pentazocine-Naloxone, quiNINE Sulfate, and traMADol HCl. Medications: Aspirin 1 Tablet (of 81 mg) Oral daily Atorvastatin Calcium 1 Tablet (of 20 mg) Oral at bedtime Brilinta 1 Tablet (of 90 mg) Oral b.i.d. Cholecalciferol 1 Capsule (of 64612 Units) Oral q 7 days Cyclobenzaprine HCl 2 Tablet (of 5 mg) Oral t.i.d. Januvia 1 Tablet (of 100 mg) Oral daily Morphine Sulfate 1 Tablet (of 30 mg) Oral t.i.d. PRN Multivitamin Adults 1 Tablet Oral daily Narcan 1 spray(s) (of 4 mg/0.1mL) Liquid Nasal PRN NexIUM 1 Capsule (of 40 mg) Capsule Delayed Release Oral daily Nitrostat 1 Tablet (of 0.4 mg) Tablet, sublingual Sublingual PRN Ondansetron HCl 1 Tablet (of 8 mg) Oral t.i.d. PRN oxyCODONE HCl 1 Tablet (of 10 mg) Oral q 6 hours PRN PROzac 1 Capsule (of 10 mg) Oral daily Ranexa 1 Tablet (of 1000 mg) Tablet SR 12 HR Oral b.i.d. Reglan 1 Tablet (of 20 mg) Oral t.i.d. rOPINIRole HCl 1 Tablet (of 0.5 mg) Oral daily Vascepa 1 Capsule (of 1 G) Oral b.i.d. Ventolin HFA 2 puff(s) (of 108 (90 base) mcg/act) Aerosol, solution Inhalation q 4 hours PRN Family History: Ms. Castro's mother at age 79: heart disease. Ms. Castro's father at age 40: myocardial infarction. Ms. Castro's maternal grandmother is : cancer of unknown primary. Social History: Ms. Castro is and she is a disabled. She is a daily smoker who has smoked 0.5 packs/day for 45 years. She is a former drinker. She has indicated exposure to the following products: cigarettes. Ms. Castro reports the following support systems: lives with spouse, significant other, family, or friends, lives in own house, supportive family/friends willing to assist with needs, and adequate transportation available for expected visits. Her diet consists of regular meals. She indicates her activity level as: occasional exercise. Review Of Symptoms: <See Above> Vital Signs: Performed on Dec 26, 2020 12:57 Height - 62.50 in Weight - 191.6 lbs (HIGH) BSA - 1.89 sq.m BMI - 34.49 (HIGH) Temperature - 96.8 F (LOW) Pulse - 80 /min Respiration - 18 /min BP - 118/60 mm(hg) O2 Sat - 95 % (LOW) Pain - 6 Fatigue - 4,1 - No physically strenuous activity, but ambulatory and able to carry out light or sedentary work (e.g. office work, light house work). (ECOG) Physical Examination: Constitutional Alert, oriented, no acute distress. Skin pink, warm and dry. Head Normocephalic; atraumatic. Eyes Conjunctivae and sclerae are clear and without icterus. Pupils are reactive and equal. Neck Supple without masses or thyromegaly. No jugular venous distension. Hematologic/Lymphatic No petechiae or purpura. No tender or palpable lymph nodes in the cervical or supraclavicular areas. Respiratory Lungs are clear to auscultation without rhonchi or wheezing. Cardiovascular Regular rate and rhythm of heart without murmurs,clicks, gallops or rubs. Chest Chest is symmetric without chest wall deformities. Abdomen Non-tender, non-distended, no masses or ascites. Good bowel sounds noted in all quads. No guarding or rebound tenderness. No pulsatile masses. Back/Spine Non-tender to palpation. Extremities No visible deformities, no cyanosis, clubbing or edema. Musculoskeletal No tenderness or swelling, normal range of motion without obvious weakness. Integumentary No rashes or lesions. Neurologic No sensory or motor deficits, normal cerebellar function, normal gait. Psychiatric Alert and oriented times three. Coherent speech. Verbalizes understanding of our discussions today. Laboratory:Test performed on Dec 26, 2020 10:52 Iron 54 mcg/dL Iron Binding Capacity (TIBC) 305 mcg/dl % Iron Saturation 17.7 % UIBC 251 mcg/dL WBC 8.1 10 3/uL RBC 5.33 10 6/uL HGB 15.4 g/dL HCT 47.8 % MCV 89.7 fL MCH 28.9 pg MCHC 32.2 g/dL RDW 13.0 % Platelet Count 260 10 3/cmm MPV 9.7 fL Neutrophils 5.12 10 3/uL Lymphocytes 2.2 10 3/uL Monocytes 0.5 10 3/uL Eosinophils 0.1 10 3/uL Basophils 0.0 10 3/uL Neutrophil % 63.1 % Lymphocyte % 27.6 % Monocyte % 6.3 % Eosinophil % 1.5 % Basophils % 0.5 % NRBC % 0 % Impression: History of secondary polycythemia diagnosed in 2017, patient had Yvonne 2 mutation checked twice once on September 27, 2017 at [facility] medical oncology in [place],, it was negative and again second time on December 13, 2018 at [facility] in [place] and again it was noted detected MPS panel done on September 13, 2020 showed no mutation in CALR exon 9, exon 12, exon 10, CSF3R EX14/17, SPEC shows mutation not detected, erythropoietin level 14.7, abdominal sonogram done on September 26, 2020 shows normal spleen size History of CVA, now recovered X History of coronary artery disease, as per patient status post triple bypass, 2 coronary artery stents History of colonoscopy/polypectomy done in 2016, as per patient, she developed postprocedure rectal bleeding, requiring 2 units of packed RBC. Chronic smoking about half pack a day Plan/Problems Addressed at this Visit: 1. Polycythemia- myeloproliferative panel showed no evidence of JAK2 mutation or other mutations commonly seen in myeloproliferative disorder, no evidence of splenomegaly on abdominal sonogram,, clinically it appears patient has secondary polycythemia probably due to chronic heavy smoking. But there was a concern about history of CVA and other concern was whether she has JAK2 mutation negative polycythemia vera but with normal spleen size and erythropoietin in the upper side of normal range, would not supported rather indicate secondary polycythemia probably due to chronic smoking as mentioned above, patient was advised to quit smoking and was offered any assistance she may need. A. Mrs. Castro remains on observation and is doing well overall. B. Her labs from today were reviewed in detail and discussed with her and a copy of them was given to her as well. WBC 8.1, hemoglobin 15.4, platelets 260,000, ANC is 5120. Iron saturation 17.7% iron is 54 TIBC 305. C. We will plan to see her back in 3 months with CBC CMP and iron studies. D. Her plan for phlebotomy is to keep her hematocrit 50 or less. E. She is aware that if she has symptoms that she feels indicates her hematocrit is close to 50 she will call us in the interim and we can check her labs at any point. F. Mrs. Castro was instructed to contact us in interim should questions or problems arise. G. She did have bilateral screening mammogram 10/24/2020 which was reported as BI-RADS 1???negative follow-up in 1 year. Signed By: Cipriano Brennan-, CN Chastity Fernandez MD <<Signature on File>>
== END 2020-12-26 10:36 | disposition home or self-care (01) ==
LOC: ONCMED 10:38
PROVIDERS: PCP Family Medicine; Visit Provider Nurse Practitioner
DX: D75.1 Secondary polycythemia (principal); D50.9 Iron deficiency anemia, unspecified; Z79.899 Other long term (current) drug therapy
CPT/HCPCS: 36415; 83540; 83550; 85025; 99214

== ENCOUNTER 2021-02-23 08:18 | Emergency (ER) | payer MEDICARE, MEDICAID, SELFPAY ==
[2021-02-23] VITALS (9 sets, daily range): BP systolic 96–136; BP diastolic 52–86; PULSE 60–87; RESP 16–26; TEMP 36.3; O2SAT 95–97; BMI 34.7
--- NOTE | 2021-02-23 08:24 | ED_ITS ---
HPI - Fever General: Chief Complaint: COVID symptoms Stated Complaint: Body Aches/Cough/Chills/Nausea Time Seen by Provider: 02/23/21 08:23 History of Present Illness: HPI Narrative: Ms. Castro is a 55-year-old lady with complex past medical history including CABG, hypertension, hyperlipidemia, diabetes who presents to the emergency department due to body aches. She reports symptom onset was approximately 4 days ago and subacute. She describes generalized muscle aches, fevers, generalized malaise, loss of taste and smell, nausea, shortness of breath, cough. She does have positive sick contact with a known COVID-19 and has not been vaccinated. Overall the course of symptoms has been worsening. The intensity is moderate to severe. She has tried home medications without significant relief. Her symptoms are worse with movement and activity but do not go with rest. No other specific exacerbating or relieving factors identified Review of Systems General: Reports: 10 or more systems reviewed and unremarkable except in HPI and below Narrative: CONSTITUTIONAL: As noted in HPI EYES - denies pain, denies loss of vision EARS - denies ear issues. NOSE -mild congestion and rhinorrhea. THROAT - denies difficulty swallowing. CARDIOVASCULAR - denies chest pain and palpitations RESPIRATORY -see HPI GASTROINTESTINAL -see HPI GENITOURINARY - denies dysuria or urinary frequency MUSCULOSKELETAL-see HPI SKIN - denies rashes or new changed skin lesions NEUROLOGIC - denies focal weakness or sensory changes HEMATOLOGIC/LYMPHATIC - denies easy bruising or lymphadenopathy. [facility] ED PFSH: Medical History CAD (coronary artery disease) of artery bypass graft Chronic constipation Failed most previous therapies. Chronic nausea COPD (chronic obstructive pulmonary disease) Diabetes Gastroparesis due to secondary diabetes GERD (gastroesophageal reflux disease) Hyperlipidemia Major depression did not do well on Zoloft or Cymbalta in the past. Polycythemia vera Restless leg syndrome Vitamin D deficiency Surgical History S/P CABG (coronary artery bypass graft) x4 S/P section S/P cholecystectomy S/P coronary artery stent placement x2 S/P hysterectomy S/P shoulder surgery S/P tonsillectomy Family History Other Diabetes Heart disease Stroke Social History Alcohol intake: former Year of sobriety/quit date alcohol: 1999 History of recent travel: No Current gender identity: Female Female Reproductive History: Spontaneous abortions: No Physical Exam Narrative: EXAM NARRATIVE: GENERAL/CONSTITUTIONAL -mildly ill-appearing. No acute distress. Eyes - PERRL, no conjunctival injection ENMT - Atraumatic external nose and ears. Moist mucous membranes NECK - supple. trachea midline CARDIOVASCULAR - regular rate and rhythm. Peripheral pulses 2+ and equal RESPIRATORY -diminished and mildly coarse breath sounds bilaterally. No retractions or accessory muscle use. ABDOMEN/GI - Nontender/Nondistended. No tenderness to percussion or evidence of peritonitis MSK - Extremities without obvious deformity or tenderness to palpation SKIN - Warm, Dry NEURO - alert and appropriately oriented. strength and sensation intact. Moves all extremities equally. PSYCH - Appropriate mood and affect Course ED course: - Patient was seen and evaluated by me at bedside - Patient placed on cardiac monitors, IV access obtained - Initial evaluation notable for mildly ill appearance, no acute distress. - Labs and imaging obtained and reviewed -Symptom treatment ordered - Labs notable for no leukocytosis, mild dehydration on metabolic panel. Positive Covid test. - Imaging notable for ED read of chest x-ray with no lobar consolidation or pneu mothorax - Upon serial reexamination after treatment the patient was improved - Based on patient history, evaluation, labs, and imaging as interpreted the most likely cause of the patient's condition is COVID-19. I offered the patient monoclonal antibody therapy in the outpatient setting which she declined. - The results of ED evaluation were discussed with the patient including prescriptions and/or symptomatic cares including appropriate and responsible use, followup plan, and return precautions. The patient verbalized understanding and felt safe for discharge. - Patient discharged in satisfactory condition. Vital Signs: Vital signs: Vital Signs Temperature 97.3 F L 02/23/21 08:23 Pulse Rate 78 02/23/21 11:56 Respiratory Rate 16 02/23/21 11:56 Blood Pressure 99/53 02/23/21 11:56 Pulse Oximetry 96 02/23/21 11:56 MDM - Fever Medical Records: Attestation: I reviewed the patient's medical records. Lab Data: Attestation: I reviewed the patient's lab results. Labs: Lab Results 02/23/21 02/23/21 02/23/21 Range/Units 09:04 09:04 09:04 WBC 5.2 (4.0-10.0) 10^3/ uL RBC 5.47 H (4.1-5.3) 10^6/u L Hgb 15.8 H (11.5-15.3) g/dL Hct 48.5 H (37.0-47.0) % MCV 88.7 (81-99) fl MCH 28.9 (28.0-34.0) pg MCHC 32.6 (30.0-36.0) g/dL RDW 17.2 H (12.1-15.1) % Plt Count 228 (130-400) 10^3/c mm MPV 10.1 (7.4-10.4) fL Neut % (Auto) 59.8 % Lymph % (Auto) 26.6 % [place] % (Auto) 10.4 % Eos % (Auto) 1.4 % Baso % (Auto) 0.6 % Neut # (Auto) 3.10 (1.8-7.7) 10^3/u L Lymph # (Auto) 1.4 (0.8-4.8) 10^3/u L [place] # (Auto) 0.5 (0.2-0.9) 10^3/u L Eos # (Auto) 0.1 (0.0-0.8) 10^3/u L Baso # (Auto) 0.0 (0.0-0.1) 10^3/u L Nucleated RBC % (a uto) 0 % Nucleated RBCs # 0.0 /100WBC Sodium Cancelled Potassium Cancelled Chloride Cancelled Carbon Dioxide Cancelled Anion Gap Cancelled BUN Cancelled Creatinine Cancelled GFR Calculation Cancelled Glucose Cancelled Calculated Osmolal ity Cancelled Lactic Acid Cancelled Lactate (0.5-2.2) mmol/L Calcium Cancelled Total Bilirubin Cancelled AST Cancelled ALT Cancelled Alkaline Phosphata se Cancelled C-Reactive Protein Cancelled Total Protein Cancelled Albumin Cancelled Globulin Cancelled Procalcitonin Cancelled Nasal/Oral COVID-1 9 PCR SARS-CoV-2 Ag (Rap id) (Negative) 02/23/21 02/23/21 02/23/21 Range/Units 09:04 09:04 10:35 WBC (4.0-10.0) 10^3/ uL RBC (4.1-5.3) 10^6/u L Hgb (11.5-15.3) g/dL Hct (37.0-47.0) % MCV (81-99) fl MCH (28.0-34.0) pg MCHC (30.0-36.0) g/dL RDW (12.1-15.1) % Plt Count (130-400) 10^3/c mm MPV (7.4-10.4) fL Neut % (Auto) % Lymph % (Auto) % [place] % (Auto) % Eos % (Auto) % Baso % (Auto) % Neut # (Auto) (1.8-7.7) 10^3/u L Lymph # (Auto) (0.8-4.8) 10^3/u L [place] # (Auto) (0.2-0.9) 10^3/u L Eos # (Auto) (0.0-0.8) 10^3/u L Baso # (Auto) (0.0-0.1) 10^3/u L Nucleated RBC % (a uto) % Nucleated RBCs # /100WBC Sodium Potassium Chloride Carbon Dioxide Anion Gap BUN Creatinine GFR Calculation Glucose Calculated Osmolal ity Lactic Acid Lactate 1.5 (0.5-2.2) mmol/L Calcium Total Bilirubin AST ALT Alkaline Phosphata se C-Reactive Protein Total Protein Albumin Globulin Procalcitonin Nasal/Oral COVID-1 9 PCR Detected H SARS-CoV-2 Ag (Rap id) Positive H (Negative) 02/23/21 Range/Units 10:35 WBC (4.0-10.0) 10^3/ uL RBC (4.1-5.3) 10^6/u L Hgb (11.5-15.3) g/dL Hct (37.0-47.0) % MCV (81-99) fl MCH (28.0-34.0) pg MCHC (30.0-36.0) g/dL RDW (12.1-15.1) % Plt Count (130-400) 10^3/c mm MPV (7.4-10.4) fL Neut % (Auto) % Lymph % (Auto) % [place] % (Auto) % Eos % (Auto) % Baso % (Auto) % Neut # (Auto) (1.8-7.7) 10^3/u L Lymph # (Auto) (0.8-4.8) 10^3/u L [place] # (Auto) (0.2-0.9) 10^3/u L Eos # (Auto) (0.0-0.8) 10^3/u L Baso # (Auto) (0.0-0.1) 10^3/u L Nucleated RBC % (a uto) % Nucleated RBCs # /100WBC Sodium 134 L Potassium 4.0 Chloride 96 L Carbon Dioxide 25 Anion Gap 17.0 BUN 7 Creatinine 0.5 GFR Calculation 127.6 Glucose 170 H Calculated Osmolal ity 280 L Lactic Acid Lactate (0.5-2.2) mmol/L Calcium 9.5 Total Bilirubin 0.2 AST 24 ALT 35 H Alkaline Phosphata se 105 C-Reactive Protein 2.9 Total Protein 6.6 Albumin 3.6 Globulin 3.0 Procalcitonin 0.02 Nasal/Oral COVID-1 9 PCR SARS-CoV-2 Ag (Rap id) (Negative) Imaging Data^: CXR: Attestation: I personally reviewed and interpreted this imaging study as follo ws: My impression: No lobar consolidation or pneumothorax Discharge Plan Discharge Patient Disposition: Home Clinical Impression: COVID-19 Condition: Stable Prescriptions: New cyclobenzaprine 5 mg tablet 5 mg PO BID PRN (Reason: muscle spasm) Qty: 10 RF: 0 No Action multivitamin Tablet 1 tab PO DAILY RF: 0 aspirin 81 mg tablet,chewable 81 mg PO DAILY RF: 0 nitroglycerin 0.4 mg tablet, sublingual 0.4 mg SUBLINGUAL Q5M PRN (Reason: chest pain) Qty: 25 RF: 6 oxycodone 10 mg tablet 10 mg PO QID PRN (Reason: Pain) RF: 0 morphine 15 mg tablet extended release 30 mg PO Q12H RF: 0 cholecalciferol (vitamin D3) 1,250 mcg (50,000 unit) tablet 1,250 mcg PO Q7D 90 Days Qty: 13 RF: 3 fluoxetine 10 mg tablet 10 mg PO DAILY 90 Days Qty: 90 RF: 1 linaclotide 290 mcg capsule 290 mcg PO QAM 90 Days Qty: 90 RF: 1 metoclopramide HCl 10 mg tablet 10 mg PO TIDWMEAL 90 Days Qty: 270 RF: 1 Brilinta 90 mg tablet 90 mg PO BID Qty: 60 RF: 3 esomeprazole magnesium 40 mg capsule,delayed release(DR/EC) 40 mg PO DAILY 90 Days Qty: 90 RF: 1 famotidine 40 mg tablet 40 mg PO .at bedtime 90 Days Qty: 90 RF: 1 docusate sodium 100 mg capsule 100 mg PO BID 30 Days Qty: 60 RF: 1 albuterol sulfate [Ventolin HFA] 90 mcg/actuation HFA aerosol inhaler See Rx Instructions .ROUTE .COMPLEX Qty: 54 RF: 1 miscellaneous medical supply Misc See Rx Instructions miscellaneous .COMPLEX Qty: 1 RF: 0 miscellaneous medical supply Misc See Rx Instructions miscellaneous .COMPLEX Qty: 1 RF: 0 ranolazine 1,000 mg tablet extended release 12 hr See Rx Instructions .ROUTE .COMPLEX Qty: 180 RF: 3 nicotine 21 mg/24 hr patch 24 hour See Rx Instructions .ROUTE .COMPLEX Qty: 14 RF: 0 polyethylene glycol 3350 17 gram/dose powder See Rx Instructions .ROUTE .COMPLEX Qty: 510 RF: 1 ropinirole 0.5 mg tablet 0.5 mg PO .at bedtime 90 Days Qty: 90 RF: 1 atorvastatin 20 mg tablet 20 mg PO DAILY RF: 0 ondansetron HCl 4 mg tablet 4 mg PO QID PRN (Reason: Nausea) RF: 0 Januvia 100 mg tablet 100 mg PO DAILY RF: 0 icosapent ethyl [Vascepa] 1 gram capsule 1 g PO BID RF: 0 Discharge Orders: Discharge ED (Routine); Ordered 02/23/21 Ordered By: William Nicole Referrals: Lexi Tripathi MD [Primary Care Provider] - Discharge Diet: Usual diet Discharge Activity: Limit activity as instructed Patient Instructions: Viral Pneumonia (ED) Activity Restrictions/Additional Instructions: Thank you for visiting the emergency department. You were seen and evaluated for muscle aches and respiratory symptoms. You were found to have COVID-19. Please self isolate as recommended by the CDC. Please return to the emergency department for any concerns that you have and feel need emergency department evaluation. Coding Level of Care Code ED Guest Relations Coordinator for Kathrin Canales
--- NOTE | 2021-02-23 08:32 | XRR_ITS ---
PROCEDURE INFORMATION: Exam: XR Chest Exam date and time: 02/23/2021 8:32 AM Age: 55 years old Clinical indication: Cough and shortness of breath; Additional info: Cough, SOB TECHNIQUE: Imaging protocol: XR of the chest. Views: Frontal portable upright view of the chest. COMPARISON: CR XR chest 2V* [id number] 04/18/2020 3:25 PM FINDINGS: Lungs: Left lower lung zone calcified pulmonary parenchymal granuloma. The lungs are otherwise clear bilaterally. The pulmonary vasculature is normal. Pleural spaces: No pleural effusion. No pneumothorax. Heart/Mediastinum: The heart is normal in size and contour. Mediastinum: Multiple surgical clips. Possible LAD stent.. Vasculature: Moderate aortic arch atherosclerotic calcification without ectasia. Bones/joints: Stable. Thoracic spine vertebral body marginal osteophytes are noted at multiple levels. XR/XR chest 1V portable [id number] IMPRESSION: No acute cardiopulmonary abnormality identified.
[2021-02-23] MEDS: methocarbamol 750 mg Tablet PO (09:14)
[2021-02-23] MEDS: ketorolac 30 mg/mL INJ 15 MG IVP (09:15)
[2021-02-23] MEDS: morphine 4 mg/mL SDV 1 mL IVP (09:15)
[2021-02-23 09:37] LABS: Basophils % 0.6 %; Eosinophils # 0.1 10^3/uL (0.0-0.8); Eosinophils % 1.4 %; Hematocrit 48.5 % (37.0-47.0); Hemoglobin 15.8 g/dL (11.5-15.3); Lymphocytes # 1.4 10^3/uL (0.8-4.8); Lymphocytes % 26.6 %; Mean Corpuscular HGB Conc 32.6 g/dL (30.0-36.0); Mean Corpuscular Hemoglobin 28.9 pg (28.0-34.0); Mean Corpuscular Volume 88.7 fl (81-99); Mean Platelet Volume 10.1 fL (7.4-10.4); Monocytes # 0.5 10^3/uL (0.2-0.9); Monocytes % 10.4 %; Neutrophils % 59.8 %; Nucleated Red Blood Cells % 0 %; Platelet Count 228 10^3/cmm (130-400); Red Blood Count 5.47 10^6/uL (4.1-5.3); Red Cell Distribution Width 17.2 % (12.1-15.1); White Blood Count 5.2 10^3/uL (4.0-10.0)
[2021-02-23 10:13] LABS: SARS Covid-2 Antigen Positive (Negative)
[2021-02-23 11:15] LABS: Lactate (Lactic Acid level) 1.5 mmol/L (0.5-2.2)
[2021-02-23 11:16] LABS: Alanine Aminotransferase 35 U/L (0-33); Albumin Level 3.6 g/dL (3.5-5.2); Alkaline Phosphatase 105 IU/L (35-105); Aspartate Amino Transferase 24 U/L (0-32); Blood Urea Nitrogen 7 mg/dL (6-20); C Reactive Protein 2.9 mg/L (0.0-4.9); Calcium 9.5 mg/dL (8.5-10.5); Carbon Dioxide 25 mmol/L (22-29); Chloride 96 mmol/L (98-107); Creatinine Clr Calc Pharmacy 127.9908; Glomerular Filtration Rate 127.6 mL/min (90-130); Glucose 170 mg/dL (65-115); Osmolality Calculated 280 mOsm/kg (285-295); Sodium 134 mmol/L (136-145); Total Bilirubin 0.2 mg/dL (0.15-1.2); Total Protein 6.6 g/dL (6.6-8.7)
[2021-02-23 11:23] LABS: Procalcitonin 0.02 ng/mL (0-0.5)
[2021-02-23 11:46] LABS: Reflex Lactate Order REFLEX LACTIC ORDERD
[2021-02-24 15:34] LABS: Coronavirus Test Green County Detected
== END 2021-02-23 11:56 | disposition home or self-care (01) ==
PROVIDERS: Emergency Provider Emergency Medicine; PCP Family Medicine
DX: U07.1 COVID-19 (principal); I10 Essential (primary) hypertension; E78.5 Hyperlipidemia, unspecified; E11.9 Type 2 diabetes mellitus without complications; I25.10 Atherosclerotic heart disease of native coronary artery without angina pectoris; J44.9 Chronic obstructive pulmonary disease, unspecified; Z79.82 Long term (current) use of aspirin; Z79.84 Long term (current) use of oral hypoglycemic drugs; Z95.1 Presence of aortocoronary bypass graft
CPT/HCPCS: 71045; 80053; 83605; 84145; 85025; 86140; 87426; 87635; 96374; 96375; 99284; J1885; J2270

== ENCOUNTER → 2021-03-18 10:10 | Outpatient (BNVA) | payer MEDICARE, MEDICAID, SELFPAY | PROVIDERS: PCP Family Medicine; Visit Provider Family Medicine | DX: K59.09 Other constipation (principal); L29.9 Pruritus, unspecified; J44.9 Chronic obstructive pulmonary disease, unspecified; F32.9 Major depressive disorder, single episode, unspecified; E13.43 Other specified diabetes mellitus with diabetic autonomic (poly)neuropathy; K21.9 Gastro-esophageal reflux disease without esophagitis; E11.49 Type 2 diabetes mellitus with other diabetic neurological complication; F32.1 Major depressive disorder, single episode, moderate | CPT/HCPCS: 80053; 83036 ==

== ENCOUNTER 2021-03-31 12:45 | Outpatient (CLI) | payer MEDICARE, MEDICAID, SELFPAY ==
[2021-03-31 13:21] LABS: Basophils % 0.5 %; Eosinophils # 0.1 10^3/uL (0.0-0.8); Eosinophils % 1.9 %; Hematocrit 49.3 % (37.0-47.0); Hemoglobin 16.4 g/dL (11.5-15.3); Lymphocytes # 2.7 10^3/uL (0.8-4.8); Lymphocytes % 36.4 %; Mean Corpuscular HGB Conc 33.3 g/dL (30.0-36.0); Mean Corpuscular Hemoglobin 28.8 pg (28.0-34.0); Mean Corpuscular Volume 86.5 fl (81-99); Mean Platelet Volume 9.7 fL (7.4-10.4); Monocytes # 0.5 10^3/uL (0.2-0.9); Monocytes % 6.2 %; Neutrophils % 53.5 %; Nucleated Red Blood Cells % 0 %; Platelet Count 316 10^3/cmm (130-400); Red Cell Distribution Width 13.4 % (12.1-15.1); White Blood Count 7.5 10^3/uL (4.0-10.0)
[2021-03-31 13:56] LABS: Alanine Aminotransferase 24 U/L (0-33); Albumin Level 3.8 g/dL (3.5-5.2); Alkaline Phosphatase 98 IU/L (35-105); Blood Urea Nitrogen 8 mg/dL (6-20); Calcium 9.4 mg/dL (8.5-10.5); Carbon Dioxide 25 mmol/L (22-29); Chloride 99 mmol/L (98-107); Ferritin 41 ng/mL (15-150); Globulin 2.8 g/dL (1.3-4.6); Glomerular Filtration Rate 127.2 mL/min (90-130); Glucose 196 mg/dL (65-115); Iron 87 ug/dL (37-145); Osmolality Calculated 284 mOsm/kg (285-295); Sodium 135 mmol/L (136-145); Total Bilirubin 0.2 mg/dL (0.15-1.2); Total Protein 6.6 g/dL (6.6-8.7)
[2021-03-31 14:23] LABS: Anion Gap 15.4 (5-19); Percent Saturation 25.1 % (20-50); Potassium 4.4 mmol/L (3.5-5.1); Total Iron Binding Capacity 346 mcg/dl; Unsaturated Iron Binding 259 ug/dL (112-347)
[2021-03-31 14:24] LABS: Aspartate Amino Transferase 22 U/L (0-32)
--- NOTE | 2021-03-31 16:21 | ONC FU_ITS ---
Dr. Fernandez follow up note Patient: Susie Castro Unit #: [id number]: [id number] Dicatated By: Chastity Fernandez M.D.Date of Visit:Mar 31, 2021 Onc Med Follow-up/Prog Note History of Present Illness: Mrs. Jackson???e Matthew, is a 55-year-old female with history of elevated hemoglobin was diagnosed with polycythemia in [address] [place] [address] Lunsford and she was started on phlebotomies every 3 month since then and last phlebotomy was done on 12/18/2018 . 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 Patient has been tolerating phlebotomies with a 500 mL every 3 months well as per patient she was told that they want to keep her hematocrit from 33, not sure patient understood well as usual recommendations are 42-45. But we'll obtain record from Dr. Lunsford's/ 's office She has history of CVA now recovered, history of triple bypass, and 2 coronary artery stent placement. Patient had colonoscopy done in 2016 at that time couple of polyps were removed, patient developed massive rectal bleed after that, probably from polypectomy site, patient is not aware and received 2 units of packed RBCs. MPS panel including JAK2 mutation done on September 13, 2020 showed no abnormality erythropoietin level 14.7, normal being 2.6-18.5 abdominal sonogram shows no splenomegaly Came for follow-up, denies any specific complaint except recently diagnosed with Covid infection and patient was managed at home. But otherwise no fever chills, no nausea or vomiting, no diarrhea constipation no headaches or blurred vision, patient has sleep apnea, on CPAP machine and still smoke about a pack a day Medications: Aspirin 1 Tablet (of 81 mg) Oral daily, Atorvastatin Calcium 1 Tablet (of 20 mg) Oral at bedtime, Brilinta 1 Tablet (of 90 mg) Oral b.i.d., Cholecalciferol 1 Capsule ([place] 64239 Units) Oral q 7 days, Cyclobenzaprine HCl 2 Tablet (of 5 mg) Oral t.i.d., Januvia 1 Tablet (of 100 mg) Oral daily, Morphine Sulfate 1 Tablet (of 30 mg) Oral t.i.d. PRN, Multivitamin Adults 1 Tablet Oral daily, Narcan 1 spray(s) (of 4 mg/0.1mL) Liquid Nasal PRN, NexIUM 1 Capsule (of 40 mg) Capsule Delayed Release Oral daily, Nitrostat 1 Tablet (of 0.4 mg) Tablet, sublingual Sublingual PRN, Ondansetron HCl 1 Tablet (of 8 mg) Oral t.i.d. PRN, oxyCODONE HCl 1 Tablet (of 10 mg) Oral q 6 hours PRN, PROzac 1 Capsule (of 10 mg) Oral daily, Ranexa 1 Tablet (of 1000 mg) Tablet SR 12 HR Oral b.i.d., Reglan 1 Tablet (of 20 mg) Oral t.i.d., rOPINIRole HCl 1 Tablet (of 0.5 mg) Oral daily, Vascepa 1 Capsule (of 1 G) Oral b.i.d., Ventolin HFA 2 puff(s) (of 108 (90 base) mcg/act) Aerosol, solution Inhalation q 4 hours PRN Allergies: Imitrex, Latex, Pentazocine-Naloxone, quiNINE Sulfate, and traMADol HCl. Review of Systems: Review of Systems is not available for this patient. Vital Signs: Vitals are not available for this patient. Performance Status: 0 - Fully active, able to carry on all predisease activities without restrictions. (ECOG) Physical Examination: ENMT - No mouth sores, no thrush, no jaundice, no cervical lymphadenopathy, Respiratory - Poor air entry, bilateral wheezing, Cardiovascular - Regular rate and rhythm of heart, Abdomen - Soft, bowel sounds present, Extremities - No visible edema. Lab/Imaging: Test performed on Dec 26, 2020 10:52 Iron 54 mcg/dL Iron Binding Capacity (TIBC) 305 mcg/dl % Iron Saturation 17.7 % UIBC 251 mcg/dL WBC 8.1 10 3/uL RBC 5.33 10 6/uL HGB 15.4 g/dL HCT 47.8 % MCV 89.7 fL MCH 28.9 pg MCHC 32.2 g/dL RDW 13.0 % Platelet Count 260 10 3/cmm MPV 9.7 fL Neutrophils 5.12 10 3/uL Lymphocytes 2.2 10 3/uL Monocytes 0.5 10 3/uL Eosinophils 0.1 10 3/uL Basophils 0.0 10 3/uL Neutrophil % 63.1 % Lymphocyte % 27.6 % Monocyte % 6.3 % Eosinophil % 1.5 % Basophils % 0.5 % NRBC % 0 % Impression: History of secondary polycythemia diagnosed in 2017, patient had Yvonne 2 mutation checked twice once on September 27, 2017 at [facility] oncology in [place],, it was negative and again second time on December 13, 2018 at [facility] in [place] and again it was noted detected MPS panel done on September 13, 2020 showed no mutation in CALR exon 9, exon 12, exon 10, CSF3R EX14/17, SPEC shows mutation not detected, erythropoietin level 14.7, abdominal sonogram done on September 26, 2020 shows normal spleen size History of CVA, now recovered X History of coronary artery disease, as per patient status post triple bypass, 2 coronary artery stents History of colonoscopy/polypectomy done in 2016, as per patient, she developed postprocedure rectal bleeding, requiring 2 units of packed RBC. Chronic smoking about half pack a day Plan: Discussed with patient regarding her labs white blood count 7.5 hemoglobin 16.4 hematocrit 49.3 platelets 316,000 CMP within normal limit except glucose 196, iron studies shows ferritin 41 iron saturation 25.1% iron 87 TIBC 346 Clinically, patient doing reasonably well with no new signs symptom, her follow-up labs shows mildly elevated hemoglobin/hematocrit, etiology most likely reactive, patient was advised to quit smoking and was offered any assistance she may need, patient is on CPAP machine along with oxygen supplement for sleep apnea. At this point will refer her to pulmonology for evaluation, she may have underlying progressive COPD may be causing exertional hypoxia patient return causing reactive polycythemia. Return to clinic in 1 month with CBC, if her hematocrit continues to go up, may consider phlebotomy in the meantime patient was advised to continue with aspirin and maintain good hydration Signed By: Chastity Fernandez M.D. <<Signature on File>>
== END 2021-03-31 12:46 | disposition home or self-care (01) ==
LOC: ONCMED 12:47
PROVIDERS: PCP Family Medicine; Visit Provider Internal Medicine Hematology & Oncology
DX: Z86.2 Personal history of diseases of the blood and blood-forming organs and certain disorders involving the immune mechanism (principal); Z86.73 Personal history of transient ischemic attack (TIA), and cerebral infarction without residual deficits; I25.10 Atherosclerotic heart disease of native coronary artery without angina pectoris; Z95.5 Presence of coronary angioplasty implant and graft; Z95.1 Presence of aortocoronary bypass graft; F17.210 Nicotine dependence, cigarettes, uncomplicated; Z86.010 Personal history of colon polyps; Z79.899 Other long term (current) drug therapy
CPT/HCPCS: 36415; 80053; 82728; 83540; 83550; 85025; 99195; 99214

== ENCOUNTER 2021-04-10 08:52 | Outpatient (CLI) | payer MEDICARE, MEDICAID, SELFPAY ==
[2021-04-10 09:43] LABS: Basophils % 0.5 %; Eosinophils # 0.1 10^3/uL (0.0-0.8); Eosinophils % 0.9 %; Hematocrit 47.2 % (37.0-47.0); Hemoglobin 15.5 g/dL (11.5-15.3); Lymphocytes # 2.2 10^3/uL (0.8-4.8); Lymphocytes % 30.2 %; Mean Corpuscular HGB Conc 32.8 g/dL (30.0-36.0); Mean Corpuscular Hemoglobin 28.3 pg (28.0-34.0); Mean Corpuscular Volume 86.3 fl (81-99); Mean Platelet Volume 9.6 fL (7.4-10.4); Monocytes # 0.5 10^3/uL (0.2-0.9); Monocytes % 7.3 %; Neutrophils # 4.48 10^3/uL (1.8-7.7); Neutrophils % 60.4 %; Nucleated Red Blood Cells % 0 %; Platelet Count 242 10^3/cmm (130-400); Red Blood Count 5.47 10^6/uL (4.1-5.3); Red Cell Distribution Width 13.2 % (12.1-15.1); White Blood Count 7.4 10^3/uL (4.0-10.0)
--- NOTE | 2021-04-10 11:46 | ONC FU_ITS ---
Dr. Fernandez follow up note Patient: Susie Castro Unit #: [id number]: [id number] Dicatated By: Chastity Fernandez M.D.Date of Visit:Apr 10, 2021 Onc Med Follow-up/Prog Note History of Present Illness: Mrs. Jackson???e Matthew, is a 56-year-old female with history of elevated hemoglobin was diagnosed with polycythemia in [address] [place] [address] Lunsford and she was started on phlebotomies every 3 month since then and last phlebotomy was done on 12/18/2018 . 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 Patient has been tolerating phlebotomies with a 500 mL every 3 months well as per patient she was told that they want to keep her hematocrit from 33, not sure patient understood well as usual recommendations are 42-45. But we'll obtain record from Dr. Lunsford's/ 's office She has history of CVA now recovered, history of triple bypass, and 2 coronary artery stent placement. Patient had colonoscopy done in 2016 at that time couple of polyps were removed, patient developed massive rectal bleed after that, probably from polypectomy site, patient is not aware and received 2 units of packed RBCs. MPS panel including JAK2 mutation done on September 13, 2020 showed no abnormality erythropoietin level 14.7, normal being 2.6-18.5 abdominal sonogram shows no splenomegaly Came for follow-up, denies any specific complaints, no fever chills, no nausea vomiting, no headaches no blurred vision no double vision, patient said she is using her CPAP machine now with oxygen on regular basis. Also trying to quit smoking no smoke about half pack a day Medications: Aspirin 1 Tablet (of 81 mg) Oral daily, Atorvastatin Calcium 1 Tablet (of 20 mg) Oral at bedtime, Brilinta 1 Tablet (of 90 mg) Oral b.i.d., Cholecalciferol 1 Capsule ([place] 76275 Units) Oral q 7 days, Januvia 1 Tablet (of 100 mg) Oral daily, Morphine Sulfate 1 Tablet (of 30 mg) Oral t.i.d. PRN, Multivitamin Adults 1 Tablet Oral daily, Narcan 1 spray(s) (of 4 mg/0.1mL) Liquid Nasal PRN, NexIUM 1 Capsule (of 40 mg) Capsule Delayed Release Oral daily, Nitrostat 1 Tablet (of 0.4 mg) Tablet, sublingual Sublingual PRN, Ondansetron HCl 1 Tablet (of 8 mg) Oral t.i.d. PRN, oxyCODONE HCl 1 Tablet (of 10 mg) Oral q 6 hours PRN, PROzac 1 Capsule (of 10 mg) Oral daily, Ranexa 1 Tablet (of 1000 mg) Tablet SR 12 HR Oral b.i.d., Reglan 1 Tablet (of 20 mg) Oral t.i.d., rOPINIRole HCl 1 Tablet (of 0.5 mg) Oral daily, Vascepa 1 Capsule (of 1 G) Oral b.i.d., Ventolin HFA 2 puff(s) (of 108 (90 base) mcg/act) Aerosol, solution Inhalation q 4 hours PRN Allergies: Imitrex, Latex, Pentazocine-Naloxone, quiNINE Sulfate, and traMADol HCl. Review of Systems: Review of Systems is not available for this patient. Vital Signs: Performed on Apr 10, 2021 11:40 Height - 62.50 in Weight - 191.4 lbs (HIGH) BSA - 1.89 sq.m BMI - 34.45 (HIGH) Temperature - 97.2 F (LOW) Pulse - 71 /min Respiration - 18 /min BP - 141/75 mm(hg) (HIGH) O2 Sat - 97 % Pain - 6 Fatigue - 4 Performance Status: 0 - Fully active, able to carry on all predisease activities without restrictions. (ECOG) Physical Examination: ENMT - No mouth sores, no thrush, no jaundice, Respiratory - Poor air entry otherwise clear, Cardiovascular - Regular rate and rhythm of heart, Abdomen - Soft, bowel sounds present, Extremities - No visible edema. Lab/Imaging: Test performed on Dec 26, 2020 10:52 Iron 54 mcg/dL Iron Binding Capacity (TIBC) 305 mcg/dl % Iron Saturation 17.7 % UIBC 251 mcg/dL WBC 8.1 10 3/uL RBC 5.33 10 6/uL HGB 15.4 g/dL HCT 47.8 % MCV 89.7 fL MCH 28.9 pg MCHC 32.2 g/dL RDW 13.0 % Platelet Count 260 10 3/cmm MPV 9.7 fL Neutrophils 5.12 10 3/uL Lymphocytes 2.2 10 3/uL Monocytes 0.5 10 3/uL Eosinophils 0.1 10 3/uL Basophils 0.0 10 3/uL Neutrophil % 63.1 % Lymphocyte % 27.6 % Monocyte % 6.3 % Eosinophil % 1.5 % Basophils % 0.5 % NRBC % 0 % Impression: History of secondary polycythemia diagnosed in 2017, patient had Yvonne 2 mutation checked twice once on September 27, 2017 at [facility] medical oncology in [place],, it was negative and again second time on December 13, 2018 at [facility] in [place] and again it was noted detected MPS panel done on September 13, 2020 showed no mutation in CALR exon 9, exon 12, exon 10, CSF3R EX14/17, SPEC shows mutation not detected, erythropoietin level 14.7, abdominal sonogram done on September 26, 2020 shows normal spleen size History of CVA, now recovered X History of coronary artery disease, as per patient status post triple bypass, 2 coronary artery stents History of colonoscopy/polypectomy done in 2016, as per patient, she developed postprocedure rectal bleeding, requiring 2 units of packed RBC. Chronic smoking about half pack a day Plan: Discussed with patient regarding her labs white blood count 7.4 hemoglobin 15.5 hematocrit 47.2 compared to 49.3 previously platelets 242,000 clinically, patient doing well with no new signs symptom, her follow-up labs shows further improvement in her hemoglobin/hematocrit, patient is trying to quit smoking, she was encouraged and was offered any assistance she may need and she was also advised to use CPAP machine as recommended by PMD. And to continue daily aspirin and maintain hydration and return to clinic in 2 months with CBC Signed By: Chastity Fernandez M.D. <<Signature on File>>
== END 2021-04-10 08:53 | disposition home or self-care (01) ==
PROVIDERS: PCP Family Medicine; Visit Provider Internal Medicine Hematology & Oncology
DX: Z86.2 Personal history of diseases of the blood and blood-forming organs and certain disorders involving the immune mechanism (principal); Z86.73 Personal history of transient ischemic attack (TIA), and cerebral infarction without residual deficits; I25.10 Atherosclerotic heart disease of native coronary artery without angina pectoris; Z95.5 Presence of coronary angioplasty implant and graft; Z95.1 Presence of aortocoronary bypass graft; F17.210 Nicotine dependence, cigarettes, uncomplicated; Z86.010 Personal history of colon polyps; Z79.899 Other long term (current) drug therapy
CPT/HCPCS: 36415; 85025; 99214

== ENCOUNTER 2021-04-16 10:24 | Outpatient (CLI) | payer MEDICARE, MEDICAID, SELFPAY ==
--- NOTE | 2021-04-16 10:30 | CT_ITS ---
WS: [id number] LDCT LUNG CANCER SCREENING HISTORY: Nicotine Dependence TECHNIQUE: Axial imaging performed from the apices to 1 cm below the costophrenic angles. Coronal and sagittal reformats are submitted with axial MIP series. All CT scans at [facility] use at least one of these dose optimization techniques: automated exposure control; mA and/or kV adjustment per patient size (includes targeted exams where dose is matched to clinical indication); or iterativ e reconstruction. DLP: 53.79 mGy.cm DIvol: 1.58 mGy COMPARISON: 06/01/2019 Diagnostic quality: Satisfactory Lung Nodules: No noncalcified pulmonary nodules or endobronchial lesions. Benign granuloma in the LEF T lower lobe. There is a small septation noted running through the RIGHT lower lobe proximal bronchus . Lungs: No abnormality. Heart: Normal size heart. Prior CABG. Other findings: Mild atherosclerosis aorta. Normal size pulmonary artery. CT/CT lung screening [id number] IMPRESSION: LUNG-RADS: 1-Negative FOLLOW UP: 12 Month: Continue annual screening with LDCT OTHER FINDINGS (S MODIFIER): None.
== END 2021-04-16 10:25 | disposition home or self-care (01) ==
PROVIDERS: PCP Family Medicine; Visit Provider Internal Medicine Critical Care Medicine
DX: F17.210 Nicotine dependence, cigarettes, uncomplicated (principal)
CPT/HCPCS: 71271

== ENCOUNTER 2021-04-17 11:05 | Outpatient (CLI) | payer MEDICARE, MEDICAID, SELFPAY | END 2021-04-17 11:06 | disposition home or self-care (01) | LOC: SLEEP 11:06 | PROVIDERS: PCP Family Medicine; Visit Provider Internal Medicine Critical Care Medicine | DX: J41.0 Simple chronic bronchitis (principal) | CPT/HCPCS: 94762 ==

== ENCOUNTER → 2021-05-21 08:47 | Outpatient (BNVA) | payer MEDICARE, MEDICAID, SELFPAY | PROVIDERS: PCP Family Medicine; Visit Provider Internal Medicine Critical Care Medicine | DX: Z20.822 Contact with and (suspected) exposure to COVID-19 (principal); J41.0 Simple chronic bronchitis | CPT/HCPCS: 87635 ==

== ENCOUNTER 2021-05-28 09:31 | Outpatient (CLI) | payer MEDICARE, MEDICAID, SELFPAY ==
--- NOTE | 2021-05-28 10:39 | PFTS_ITS ---
Date of Study:05/28/21 Date of Dictation: 05/28/2021 MECHANICS: Prebronchodilator forced vital capacity (FVC) is normal. Prebronchodilator forced expiratory volume in one second (FEV1) is normal. FEV1/FVC is normal.. There is no postbronchodilator study. FLOW VOLUME LOOP: Normal expiratory limb with incomplete inspiratory limb LUNG VOLUMES: Total lung capacity (TLC) is normal. Residual volume (RV) is normal DIFFUSING CAPACITY FOR CARBON MONOXIDE: Normal . INTERPRETATION: The pulmonary function tests are normal MTDD
== END 2021-05-28 09:32 | disposition home or self-care (01) ==
PROVIDERS: PCP Family Medicine; Visit Provider Internal Medicine Critical Care Medicine
DX: J41.0 Simple chronic bronchitis (principal)
CPT/HCPCS: 94010; 94618; 94726; 94729

== ENCOUNTER → 2021-06-03 10:01 | Outpatient (BNVA) | payer MEDICARE, MEDICAID, SELFPAY | PROVIDERS: PCP Family Medicine; Visit Provider Family Medicine | DX: E11.49 Type 2 diabetes mellitus with other diabetic neurological complication (principal); E87.79 Other fluid overload; J44.9 Chronic obstructive pulmonary disease, unspecified | CPT/HCPCS: 80048; 83036; 85025 ==

== ENCOUNTER 2021-06-11 12:10 | Outpatient (CLI) | payer MEDICARE, MEDICAID, SELFPAY ==
[2021-06-11 13:14] LABS: Basophils % 0.5 %; Eosinophils # 0.1 10^3/uL (0.0-0.8); Eosinophils % 1.2 %; Hematocrit 45.5 % (37.0-47.0); Hemoglobin 15.2 g/dL (11.5-15.3); Lymphocytes # 2.6 10^3/uL (0.8-4.8); Lymphocytes % 31.6 %; Mean Corpuscular HGB Conc 33.4 g/dL (30.0-36.0); Mean Corpuscular Hemoglobin 28.8 pg (28.0-34.0); Mean Corpuscular Volume 86.2 fl (81-99); Mean Platelet Volume 9.9 fL (7.4-10.4); Monocytes # 0.4 10^3/uL (0.2-0.9); Monocytes % 5.3 %; Neutrophils # 4.95 10^3/uL (1.8-7.7); Neutrophils % 60.4 %; Nucleated Red Blood Cells % 0 %; Platelet Count 268 10^3/cmm (130-400); Red Blood Count 5.28 10^6/uL (4.1-5.3); Red Cell Distribution Width 12.7 % (12.1-15.1); White Blood Count 8.2 10^3/uL (4.0-10.0)
--- NOTE | 2021-06-11 14:55 | ONC FU_ITS ---
Dr. Fernandez follow up note Patient: Susie Castro Unit #: [id number]: [id number] Dicatated By: Chastity Fernandez M.D.Date of Visit:Jun 11, 2021 Onc Med Follow-up/Prog Note History of Present Illness: Mrs. Jackson???e Matthew, is a 56-year-old female with history of elevated hemoglobin was diagnosed with polycythemia in [address] [place] [address] Lunsford and she was started on phlebotomies every 3 month since then and last phlebotomy was done on 12/18/2018 . As per patient from [place] she moved to [facility] where she saw Dr. hernandez, contact lens blocker and cutter, he continued with phlebotomies every 3 month. Patient has been tolerating phlebotomies with a 500 mL every 3 months well as per patient she was told that they want to keep her hematocrit from 33, not sure patient understood well as usual recommendations are 42-45. But we'll obtain record from Dr. Lunsford's/ 's office She has history of CVA now recovered, history of triple bypass, and 2 coronary artery stent placement. Patient had colonoscopy done in 2016 at that time couple of polyps were removed, patient developed massive rectal bleed after that, probably from polypectomy site, patient is not aware and received 2 units of packed RBCs. MPS panel including JAK2 mutation done on September 13, 2020 showed no abnormality erythropoietin level 14.7, normal being 2.6-18.5 abdominal sonogram shows no splenomegaly Came for follow-up, denies any specific complaints except generalized weakness and fatigue, patient is on chronic pain medication and follow-up with pain clinic. And recently seen by pulmonology and underwent low-dose CT scan of chest which was unremarkable, patient is on CPAP for sleep apnea and still smoking about half pack a day. Patient denies any headaches blurred vision double vision, denies any chest pain or palpitation. Medications: Aspirin 1 Tablet (of 81 mg) Oral daily, Atorvastatin Calcium 1 Tablet (of 20 mg) Oral at bedtime, Brilinta 1 Tablet (of 90 mg) Oral b.i.d., Cholecalciferol 1 Capsule ([place] 43377 Units) Oral q 7 days, Januvia 1 Tablet (of 100 mg) Oral daily, Morphine Sulfate 1 Tablet (of 30 mg) Oral t.i.d. PRN, Multivitamin Adults 1 Tablet Oral daily, Narcan 1 spray(s) (of 4 mg/0.1mL) Liquid Nasal PRN, NexIUM 1 Capsule (of 40 mg) Capsule Delayed Release Oral daily, Nitrostat 1 Tablet (of 0.4 mg) Tablet, sublingual Sublingual PRN, Ondansetron HCl 1 Tablet (of 8 mg) Oral t.i.d. PRN, oxyCODONE HCl 1 Tablet (of 10 mg) Oral q 6 hours PRN, PROzac 1 Capsule (of 10 mg) Oral daily, Ranexa 1 Tablet (of 1000 mg) Tablet SR 12 HR Oral b.i.d., Reglan 1 Tablet (of 20 mg) Oral t.i.d., rOPINIRole HCl 1 Tablet (of 0.5 mg) Oral daily, Vascepa 1 Capsule (of 1 G) Oral b.i.d., Ventolin HFA 2 puff(s) (of 108 (90 base) mcg/act) Aerosol, solution Inhalation q 4 hours PRN Allergies: Imitrex, Latex, Pentazocine-Naloxone, quiNINE Sulfate, and traMADol HCl. Review of Systems: Review of Systems is not available for this patient. Vital Signs: Vitals are not available for this patient. Performance Status: 0 - Fully active, able to carry on all predisease activities without restrictions. (ECOG) Physical Examination: ENMT - No mouth sores, no thrush, no jaundice, Respiratory - Lungs are clear to auscultation, Cardiovascular - Regular rate and rhythm of heart, Abdomen - Soft, bowel sounds present, Extremities - No visible edema. Lab/Imaging: Test performed on Dec 26, 2020 10:52 Iron 54 mcg/dL Iron Binding Capacity (TIBC) 305 mcg/dl % Iron Saturation 17.7 % UIBC 251 mcg/dL WBC 8.1 10 3/uL RBC 5.33 10 6/uL HGB 15.4 g/dL HCT 47.8 % MCV 89.7 fL MCH 28.9 pg MCHC 32.2 g/dL RDW 13.0 % Platelet Count 260 10 3/cmm MPV 9.7 fL Neutrophils 5.12 10 3/uL Lymphocytes 2.2 10 3/uL Monocytes 0.5 10 3/uL Eosinophils 0.1 10 3/uL Basophils 0.0 10 3/uL Neutrophil % 63.1 % Lymphocyte % 27.6 % Monocyte % 6.3 % Eosinophil % 1.5 % Basophils % 0.5 % NRBC % 0 % Impression: History of secondary polycythemia diagnosed in 2017, patient had Yvonne 2 mutation checked twice once on September 27, 2017 at [facility] medical oncology in [place],, it was negative and again second time on December 13, 2018 at [facility] in [place] and again it was noted detected MPS panel done on September 13, 2020 showed no mutation in CALR exon 9, exon 12, exon 10, CSF3R EX14/17, SPEC shows mutation not detected, erythropoietin level 14.7, abdominal sonogram done on September 26, 2020 shows normal spleen size History of CVA, now recovered X History of coronary artery disease, as per patient status post triple bypass, 2 coronary artery stents History of colonoscopy/polypectomy done in 2016, as per patient, she developed postprocedure rectal bleeding, requiring 2 units of packed RBC. Chronic smoking about half pack a day Plan: Discussed with patient regarding her labs white blood count 8.2 hemoglobin 15.2 hematocrit 45.4 compared to 47.2 previously platelets 268,000 Clinically, patient doing well with no new signs symptom, her follow-up CBC shows improvement in her hematocrit, as per patient since she is using oxygen on regular basis and CPAP machine regularly she is feeling much better. , Patient was advised to quit smoking was offered any assistance she may need otherwise she will return to clinic in 2 months with CBC Signed By: Chastity Fernandez M.D. <<Signature on File>>
== END 2021-06-11 12:11 | disposition home or self-care (01) ==
LOC: ONCMED 12:12
PROVIDERS: Internal Medicine Hematology & Oncology; PCP Family Medicine; Visit Provider Internal Medicine Medical Oncology
DX: D75.1 Secondary polycythemia (principal); F17.210 Nicotine dependence, cigarettes, uncomplicated; I25.10 Atherosclerotic heart disease of native coronary artery without angina pectoris; Z95.5 Presence of coronary angioplasty implant and graft; Z95.818 Presence of other cardiac implants and grafts; Z86.010 Personal history of colon polyps; Z86.73 Personal history of transient ischemic attack (TIA), and cerebral infarction without residual deficits; Z79.899 Other long term (current) drug therapy
CPT/HCPCS: 36415; 85025; 99214

== ENCOUNTER 2021-08-19 11:19 | Outpatient (CLI) | payer MEDICARE, MEDICAID, SELFPAY ==
[2021-08-19 11:46] LABS: Basophils # 0.1 10^3/uL (0.0-0.1); Basophils % 0.7 %; Eosinophils # 0.1 10^3/uL (0.0-0.8); Eosinophils % 1.2 %; Hematocrit 49.6 % (37.0-47.0); Hemoglobin 16.3 g/dL (11.5-15.3); Lymphocytes # 3.6 10^3/uL (0.8-4.8); Lymphocytes % 39.7 %; Mean Corpuscular HGB Conc 32.9 g/dL (30.0-36.0); Mean Corpuscular Hemoglobin 29.2 pg (28.0-34.0); Mean Corpuscular Volume 88.9 fl (81-99); Mean Platelet Volume 9.5 fL (7.4-10.4); Monocytes # 0.6 10^3/uL (0.2-0.9); Neutrophils # 4.53 10^3/uL (1.8-7.7); Neutrophils % 50.5 %; Nucleated Red Blood Cells % 0 %; Platelet Count 295 10^3/cmm (130-400); Red Blood Count 5.58 10^6/uL (4.1-5.3); Red Cell Distribution Width 12.7 % (12.1-15.1)
--- NOTE | 2021-08-19 15:51 | ONC FU_ITS ---
Dr. Fernandez follow up note Patient: Susie Castro Unit #: [id number]: [id number] Dicatated By: Chastity Fernandez M.D.Date of Visit:Aug 19, 2021 Onc Med Follow-up/Prog Note History of Present Illness: Mrs. Jackson???e Matthew, is a 56-year-old female with history of elevated hemoglobin was diagnosed with polycythemia in [address] [place] [address] Lunsford and she was started on phlebotomies every 3 month since then and last phlebotomy was done on 12/18/2018 . 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 Patient has been tolerating phlebotomies with a 500 mL every 3 months well as per patient she was told that they want to keep her hematocrit from 33, not sure patient understood well as usual recommendations are 42-45. But we'll obtain record from Dr. Lunsford's/ 's office She has history of CVA now recovered, history of triple bypass, and 2 coronary artery stent placement. Patient had colonoscopy done in 2016 at that time couple of polyps were removed, patient developed massive rectal bleed after that, probably from polypectomy site, patient is not aware and received 2 units of packed RBCs. MPS panel including JAK2 mutation done on September 13, 2020 showed no abnormality erythropoietin level 14.7, normal being 2.6-18.5 abdominal sonogram shows no splenomegaly Came for follow-up, denies any specific complaints except off-and-on headaches and heaviness but no chest pain or palpitation, no shortness of breath, no nausea or vomiting, no diarrhea constipation, no melena or hematochezia, patient is using her CPAP machine as recommended but still smoking, tolerating phlebotomies on as-needed basis, well Medications: Aspirin 1 Tablet (of 81 mg) Oral daily, Atorvastatin Calcium 1 Tablet (of 20 mg) Oral at bedtime, Brilinta 1 Tablet (of 90 mg) Oral b.i.d., Chole[place]iferol 1 [place] ([place] [address]386 Units) Oral q 7 days, Januvia 1 Tablet (of 100 mg) Oral daily, Morphine Sulfate 1 Tablet (of 30 mg) Oral t.i.d. PRN, Multivitamin Adults 1 Tablet Oral daily, Narcan 1 spray(s) (of 4 mg/0.1mL) Liquid Nasal PRN, NexIUM 1 Capsule (of 40 mg) Capsule Delayed Release Oral daily, Nitrostat 1 Tablet (of 0.4 mg) Tablet, sublingual Sublingual PRN, Ondansetron HCl 1 Tablet (of 8 mg) Oral t.i.d. PRN, oxyCODONE HCl 1 Tablet (of 10 mg) Oral q 6 hours PRN, PROzac 1 Capsule (of 10 mg) Oral daily, Ranexa 1 Tablet (of 1000 mg) Tablet SR 12 HR Oral b.i.d., Reglan 1 Tablet (of 20 mg) Oral t.i.d., rOPINIRole HCl 1 Tablet (of 0.5 mg) Oral daily, Vascepa 1 Capsule (of 1 G) Oral b.i.d., Ventolin HFA 2 puff(s) (of 108 (90 base) mcg/act) Aerosol, solution Inhalation q 4 hours PRN Allergies: Imitrex, Latex, Pentazocine-Naloxone, quiNINE Sulfate, and traMADol HCl. Review of Systems: Review of Systems is not available for this patient. Vital Signs: Performed on Aug 19, 2021 14:06 Height - 62.50 in Weight - 185.6 lbs (LOW) BSA - 1.86 sq.m BMI - 33.41 (HIGH) Temperature - 96.2 F (LOW) Pulse - 72 /min Respiration - 16 /min BP - 115/68 mm(hg) O2 Sat - 98 % Pain - 0 Fatigue - 6 Performance Status: 1 - No physically strenuous activity, but ambulatory and able to carry out light or sedentary work (e.g. office work, light house work). (ECOG) Physical Examination: ENMT - No mouth sores, no thrush, no jaundice, Respiratory - Poor air entry otherwise clear, Cardiovascular - Regular rate and rhythm of heart, Abdomen - Soft, bowel sounds present, Extremities - No visible edema. Lab/Imaging: Most recent lab results are not available for this patient. Impression: History of secondary polycythemia diagnosed in 2017, patient had Yvonne 2 mutation checked twice once on September 27, 2017 at [facility] oncology in [place],, it was negative and again second time on December 13, 2018 at [facility] in [place] and again it was noted detected MPS panel done on September 13, 2020 showed no mutation in CALR exon 9, exon 12, exon 10, CSF3R EX14/17, SPEC shows mutation not detected, erythropoietin level 14.7, abdominal sonogram done on September 26, 2020 shows normal spleen size History of CVA, now recovered X History of coronary artery disease, as per patient status post triple bypass, 2 coronary artery stents History of colonoscopy/polypectomy done in 2016, as per patient, she developed postprocedure rectal bleeding, requiring 2 units of packed RBC. Chronic smoking about half pack a day Plan: Discussed with patient regarding her labs white blood count 9 hemoglobin 16.2 hematocrit 49.6 compared to 45.5 on June 11, 2021 platelets 295,000 Clinically, patient is doing well with no new signs symptoms, her follow-up CBC shows mild polycythemia which is reactive to her chronic smoking and underlying sleep apnea, as per patient she is using her CPAP machine as recommended and still smoking, at this point, will consider phlebotomy, with a 500 cc / 250 cc normal saline replacement and return to clinic in 1 month with CBC Signed By: Chastity Fernandez M.D. <<Signature on File>>
== END 2021-08-19 11:20 | disposition home or self-care (01) ==
LOC: ONCMED 11:23
PROVIDERS: PCP Family Medicine; Visit Provider Internal Medicine Hematology & Oncology
DX: D45 Polycythemia vera (principal)
CPT/HCPCS: 36415; 85025; 99195; 99214

== ENCOUNTER → 2021-08-26 10:10 | Outpatient (BNVA) | payer MEDICARE, MEDICAID, SELFPAY | PROVIDERS: PCP Family Medicine; Visit Provider Family Medicine | DX: E11.49 Type 2 diabetes mellitus with other diabetic neurological complication (principal); E78.2 Mixed hyperlipidemia | CPT/HCPCS: 80053; 80061; 83036; 83721 ==

== ENCOUNTER 2021-10-01 11:11 | Outpatient (CLI) | payer MEDICARE, MEDICAID, SELFPAY ==
[2021-10-01 12:05] LABS: Basophils # 0.1 10^3/uL (0.0-0.1); Basophils % 0.7 %; Eosinophils # 0.1 10^3/uL (0.0-0.8); Eosinophils % 1.4 %; Hematocrit 46.6 % (37.0-47.0); Hemoglobin 15.3 g/dL (11.5-15.3); Lymphocytes # 3.1 10^3/uL (0.8-4.8); Lymphocytes % 35.5 %; Mean Corpuscular HGB Conc 32.8 g/dL (30.0-36.0); Mean Corpuscular Hemoglobin 28.3 pg (28.0-34.0); Mean Corpuscular Volume 86.3 fl (81-99); Mean Platelet Volume 9.7 fL (7.4-10.4); Monocytes # 0.6 10^3/uL (0.2-0.9); Neutrophils # 4.68 10^3/uL (1.8-7.7); Neutrophils % 54.6 %; Nucleated Red Blood Cells % 0 %; Platelet Count 314 10^3/cmm (130-400); Red Cell Distribution Width 12.7 % (12.1-15.1); White Blood Count 8.6 10^3/uL (4.0-10.0)
--- NOTE | 2021-10-05 20:07 | ONC FU_ITS ---
Miranda Dinero Progress Note Patient: Susie Castro Unit #: [id number]: [id number] Dicatated By: Miranda Dinero N.P.Date of Visit:Oct 01, 2021 Onc MED Follow-up/Prog Note Chief Complaint: Polycythemia vera History of Present Illness: Mrs. Jackson???e Matthew, is a 56-year-old female with history of elevated hemoglobin was diagnosed with polycythemia in [address] [place] [address] Lunsford and she was started on phlebotomies every 3 month since then and last phlebotomy was done on 12/18/2018 . As per patient from [place] she moved to [facility] where she saw Dr. 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 Patient has been tolerating phlebotomies with a 500 mL every 3 months well as per patient she was told that they want to keep her hematocrit from 33, not sure patient understood well as usual recommendations are 42-45. But we'll obtain record from Dr. Lunsford's/ 's office She has history of CVA now recovered, history of triple bypass, and 2 coronary artery stent placement. Patient had colonoscopy done in 2016 at that time couple of polyps were removed, patient developed massive rectal bleed after that, probably from polypectomy site, patient is not aware and received 2 units of packed RBCs. MPS panel including JAK2 mutation done on September 13, 2020 showed no abnormality erythropoietin level 14.7, normal being 2.6-18.5 abdominal sonogram shows no splenomegaly Patient presents today for follow-up. She continues to have some moderate fatigue. She denies fever, chills, night sweats. Her appetite has been good. No shortness of breath, cough, chest pain. No GI or problems. No joint or bone pain. No headaches or dizziness. Review Of Symptoms: See above. Past Medical History: Chronic obstructive pulmonary disease Degenerative disease of the spine Gastroesophageal reflux disease Hyperlipidemia Osteoarthritis Stroke Type II diabetes Vitamin d deficiency Past Surgical History: Caesarean section Cholecystectomy Coronary artery bypass Hysterectomy Left shoulder repair Tonsillectomy Allergies: Imitrex, Latex, Pentazocine-Naloxone, quiNINE Sulfate, and traMADol HCl. Medications: Aspirin 1 Tablet (of 81 mg) Oral daily Atorvastatin Calcium 1 Tablet (of 20 mg) Oral at bedtime Brilinta 1 Tablet (of 60 mg) Oral b.i.d. Cholecalciferol 1 Capsule (of 09868 Units) Oral q 7 days Januvia 1 Tablet (of 100 mg) Oral daily Morphine Sulfate 1 Tablet (of 30 mg) Oral t.i.d. PRN Multivitamin Adults 1 Tablet Oral daily Narcan 1 spray(s) (of 4 mg/0.1mL) Liquid Nasal PRN NexIUM 1 Capsule (of 40 mg) Capsule Delayed Release Oral daily Nitrostat 1 Tablet (of 0.4 mg) Tablet, sublingual Sublingual PRN Ondansetron HCl 1 Tablet (of 8 mg) Oral t.i.d. PRN oxyCODONE HCl 1 Tablet (of 10 mg) Oral q 6 hours PRN PROzac 1 Capsule (of 10 mg) Oral daily Ranexa 1 Tablet (of 1000 mg) Tablet SR 12 HR Oral b.i.d. Reglan 1 Tablet (of 20 mg) Oral t.i.d. rOPINIRole HCl 1 Tablet (of 0.5 mg) Oral daily Spiriva HandiHaler 1 Inhalation Capsule Inhalation b.i.d. Vascepa 1 Capsule (of 1 G) Oral b.i.d. Ventolin HFA 2 puff(s) (of 108 (90 base) mcg/act) Aerosol, solution Inhalation q 4 hours PRN Family History: Ms. Castro's mother at age 79: heart disease. Ms. Castro's father at age 40: myocardial infarction. Ms. Castro's maternal grandmother is : cancer of unknown primary. Social History: Ms. Castro is and she is a disabled. She is a daily smoker who has smoked 0.5 packs/day for 46 years. She is a former drinker. She has indicated exposure to the following products: cigarettes. Ms. Castro reports the following support systems: lives with spouse, significant other, family, or friends, lives in own house, supportive family/friends willing to assist with needs, and adequate transportation available for expected visits. Her diet consists of regular meals. She indicates her activity level as: occasional exercise. Physical Examination: Performed on Oct 01, 2021 15:22: Height - 62.50 in, Weight - 188.8 lbs (HIGH), BSA - 1.88 sq.m, BMI - 33.98 (HIGH), Temperature - 96.7 F (LOW), Pulse - 75 /min, Respiration - 16 /min, BP - 133/82 mm(hg), O2 Sat - 95 % (LOW), Pain - 0, and Fatigue - 6. Performance Status: 0 - Fully active, able to carry on all predisease activities without restrictions. (ECOG) Constitutional Alert, cooperative, oriented. Mood and affect appropriate. Appears close to chronological age. Well nourished. Well developed. Head Normocephalic; no scars. Respiratory Lungs are clear to auscultation without rhonchi or wheezing. Cardiovascular Regular rate and rhythm of heart without murmurs, gallops or rubs. Abdomen Non-tender, non-distended, no masses, ascites or hepatosplenomegaly. Good bowel sounds. No guarding or rebound tenderness. Musculoskeletal No tenderness or swelling, normal range of motion without obvious weakness. Psychiatric Alert and oriented times three. Coherent speech. Verbalizes understanding of our discussions today. Laboratory: Test performed on Oct 01, 2021 11:54 WBC 8.6 10 3/uL RBC 5.40 10 6/uL HGB 15.3 g/dL HCT 46.6 % MCV 86.3 fl MCH 28.3 pg MCHC 32.8 g/dL RDW 12.7 % Platelet Count 314 10 3/cmm MPV 9.7 fL Neutrophils 4.68 10 3/uL Lymphocytes 3.1 10 3/uL Monocytes 0.6 10 3/uL Eosinophils 0.1 10 3/uL Basophils 0.1 10 3/uL Neutrophil % 54.6 % Lymphocyte % 35.5 % Monocyte % 7.0 % Eosinophil % 1.4 % Basophils % 0.7 % NRBC % 0 % Impression: History of secondary polycythemia diagnosed in 2016, patient had Yvonne 2 mutation checked twice once on September 27, 2017 at [facility] medical oncology in [place],, it was negative and again second time on December 13, 2018 at [facility] in [place] and again it was noted detected MPS panel done on September 13, 2020 showed no mutation in CALR exon 9, exon 12, exon 10, CSF3R EX14/17, SPEC shows mutation not detected, erythropoietin level 14.7, abdominal sonogram done on September 26, 2020 shows normal spleen size History of CVA, now recovered X History of coronary artery disease, as per patient status post triple bypass, 2 coronary artery stents History of colonoscopy/polypectomy done in 2016, as per patient, she developed postprocedure rectal bleeding, requiring 2 units of packed RBC. Chronic smoking about half pack a day Plan: Labs were reviewed with patient with WBC at 8.6, hemoglobin 15.3, hematocrit 46.6, platelet count 314,000. Her iron studies are within normal limits with iron saturation at 25.1%, ferritin 41, and iron 87. Patient was required to have a phlebotomy at the last visit on 08/19/2021. Her labs are stable today. Clinically she is stable. She will return to the clinic in 2 months with CBC. Signed By: Miranda Dinero N.P. <<Signature on File>>
== END 2021-10-01 11:12 | disposition home or self-care (01) ==
PROVIDERS: PCP Family Medicine; Visit Provider Nurse Practitioner Family
DX: D45 Polycythemia vera (principal); I25.10 Atherosclerotic heart disease of native coronary artery without angina pectoris; F17.210 Nicotine dependence, cigarettes, uncomplicated; J44.9 Chronic obstructive pulmonary disease, unspecified; E78.5 Hyperlipidemia, unspecified; E11.9 Type 2 diabetes mellitus without complications; E55.9 Vitamin D deficiency, unspecified; Z79.899 Other long term (current) drug therapy; Z95.1 Presence of aortocoronary bypass graft
CPT/HCPCS: 36415; 85025; 99214

== ENCOUNTER → 2021-10-13 10:18 | Outpatient (BNVA) | payer MEDICARE, MEDICAID, SELFPAY | PROVIDERS: PCP Family Medicine; Visit Provider Internal Medicine Critical Care Medicine | DX: J42 Unspecified chronic bronchitis (principal); G47.33 Obstructive sleep apnea (adult) (pediatric); J30.2 Other seasonal allergic rhinitis; F17.210 Nicotine dependence, cigarettes, uncomplicated; E11.8 Type 2 diabetes mellitus with unspecified complications; K21.9 Gastro-esophageal reflux disease without esophagitis; E78.5 Hyperlipidemia, unspecified | CPT/HCPCS: 99214 ==

== ENCOUNTER → 2021-11-14 09:35 | Outpatient (BNVA) | payer MEDICARE, MEDICAID, SELFPAY | PROVIDERS: PCP Family Medicine; Visit Provider Emergency Medicine | DX: R68.89 Other general symptoms and signs (principal) | CPT/HCPCS: 87400 ==

== ENCOUNTER 2022-01-06 11:27 | Oncology outpatient (recurring) (ONCR) | payer MEDICARE, MEDICAID, SELFPAY ==
[2022-01-06 12:07] LABS: Basophils # 0.1 10^3/uL (0.0-0.1); Basophils % 0.6 %; Eosinophils # 0.1 10^3/uL (0.0-0.8); Eosinophils % 1.2 %; Hematocrit 48.8 % (37.0-47.0); Hemoglobin 15.8 g/dL (11.5-15.3); Lymphocytes # 3.1 10^3/uL (0.8-4.8); Lymphocytes % 32.8 %; Mean Corpuscular HGB Conc 32.4 g/dL (30.0-36.0); Mean Corpuscular Volume 83.4 fl (81-99); Mean Platelet Volume 9.7 fL (7.4-10.4); Monocytes # 0.7 10^3/uL (0.2-0.9); Monocytes % 6.9 %; Neutrophils # 5.32 10^3/uL (1.8-7.7); Neutrophils % 56.8 %; Nucleated Red Blood Cells % 0 %; Platelet Count 358 10^3/cmm (130-400); Red Blood Count 5.85 10^6/uL (4.1-5.3); Red Cell Distribution Width 14.9 % (12.1-15.1); White Blood Count 9.4 10^3/uL (4.0-10.0)
[2022-01-06 15:30] VITALS: BP 107/74; PULSE 82; TEMP 36; O2SAT 97
[2022-01-06] MEDS: sodium chloride 0.9% 250 ML 750 ML IV (15:46)
== END 2022-02-01 23:59 | disposition home or self-care (01) ==
PROVIDERS: PCP Family Medicine; Visit Provider Internal Medicine Hematology & Oncology
DX: D75.1 Secondary polycythemia (principal); G47.30 Sleep apnea, unspecified; F17.210 Nicotine dependence, cigarettes, uncomplicated; R51.9 Headache, unspecified; Z86.73 Personal history of transient ischemic attack (TIA), and cerebral infarction without residual deficits; Z95.5 Presence of coronary angioplasty implant and graft; I25.810 Atherosclerosis of coronary artery bypass graft(s) without angina pectoris; J44.9 Chronic obstructive pulmonary disease, unspecified; Z86.010 Personal history of colon polyps; Z79.899 Other long term (current) drug therapy
CPT/HCPCS: 36415; 85025; 96365; 99195; 99214; J7050

== ENCOUNTER → 2022-01-20 10:38 | Outpatient (BNVA) | payer MEDICARE, MEDICAID, SELFPAY | PROVIDERS: PCP Family Medicine; Visit Provider Family Medicine | DX: J30.9 Allergic rhinitis, unspecified (principal); K21.9 Gastro-esophageal reflux disease without esophagitis; F32.9 Major depressive disorder, single episode, unspecified; E78.2 Mixed hyperlipidemia; E55.9 Vitamin D deficiency, unspecified; L29.9 Pruritus, unspecified; K59.09 Other constipation; E13.43 Other specified diabetes mellitus with diabetic autonomic (poly)neuropathy; G25.81 Restless legs syndrome; E11.49 Type 2 diabetes mellitus with other diabetic neurological complication; J41.0 Simple chronic bronchitis; I10 Essential (primary) hypertension; J30.2 Other seasonal allergic rhinitis; F32.1 Major depressive disorder, single episode, moderate | CPT/HCPCS: 80053; 83036 ==

== ENCOUNTER 2022-02-11 12:39 | Oncology outpatient (recurring) (ONCR) | payer MEDICARE, MEDICAID, SELFPAY ==
[2022-02-11 13:02] LABS: Basophils % 0.4 %; Eosinophils # 0.1 10^3/uL (0.0-0.8); Eosinophils % 1.3 %; Hemoglobin 15.1 g/dL (11.5-15.3); Lymphocytes # 3.1 10^3/uL (0.8-4.8); Lymphocytes % 32.7 %; Mean Corpuscular HGB Conc 32.1 g/dL (30.0-36.0); Mean Corpuscular Volume 84.1 fl (81-99); Mean Platelet Volume 9.6 fL (7.4-10.4); Monocytes # 0.7 10^3/uL (0.2-0.9); Monocytes % 7.2 %; Neutrophils # 5.49 10^3/uL (1.8-7.7); Neutrophils % 57.7 %; Nucleated Red Blood Cells % 0 %; Platelet Count 349 10^3/cmm (130-400); Red Blood Count 5.59 10^6/uL (4.1-5.3); Red Cell Distribution Width 14.3 % (12.1-15.1); White Blood Count 9.5 10^3/uL (4.0-10.0)
[2022-02-11 16:16] VITALS: BP 130/69; PULSE 82; RESP 16; TEMP 36.1; O2SAT 99
== END 2022-03-04 23:59 | disposition home or self-care (01) ==
PROVIDERS: Nurse Practitioner; PCP Family Medicine; Visit Provider Internal Medicine Hematology & Oncology
DX: D75.1 Secondary polycythemia (principal); G47.30 Sleep apnea, unspecified; F17.210 Nicotine dependence, cigarettes, uncomplicated; R51.9 Headache, unspecified; Z86.73 Personal history of transient ischemic attack (TIA), and cerebral infarction without residual deficits; Z95.5 Presence of coronary angioplasty implant and graft; Z86.010 Personal history of colon polyps; Z79.899 Other long term (current) drug therapy; Z79.82 Long term (current) use of aspirin; Z95.1 Presence of aortocoronary bypass graft
CPT/HCPCS: 85025; 99195; 99214

== ENCOUNTER → 2022-02-16 12:58 | Outpatient (BNVA) | payer MEDICARE, MEDICAID, SELFPAY | PROVIDERS: PCP Family Medicine; Visit Provider Nurse Practitioner Family | DX: I25.810 Atherosclerosis of coronary artery bypass graft(s) without angina pectoris (principal); I10 Essential (primary) hypertension; F17.210 Nicotine dependence, cigarettes, uncomplicated; Z95.1 Presence of aortocoronary bypass graft | CPT/HCPCS: 99214 ==

== ENCOUNTER 2022-05-14 12:30 | Oncology outpatient (recurring) (ONCR) | payer MEDICARE, MEDICAID, SELFPAY ==
[2022-05-06 09:09] LABS: Basophils # 0.1 10^3/uL (0.0-0.1); Basophils % 0.7 %; Eosinophils # 0.1 10^3/uL (0.0-0.8); Eosinophils % 1.5 %; Hematocrit 48.8 % (37.0-47.0); Hemoglobin 15.6 g/dL (11.5-15.3); Lymphocytes # 2.1 10^3/uL (0.8-4.8); Lymphocytes % 23.5 %; Mean Corpuscular Hemoglobin 26.1 pg (28.0-34.0); Mean Corpuscular Volume 81.6 fl (81-99); Mean Platelet Volume 9.8 fL (7.4-10.4); Monocytes # 0.6 10^3/uL (0.2-0.9); Monocytes % 6.8 %; Neutrophils # 5.83 10^3/uL (1.8-7.7); Neutrophils % 66.5 %; Nucleated Red Blood Cells % 0 %; Platelet Count 311 10^3/cmm (130-400); Red Blood Count 5.98 10^6/uL (4.1-5.3); Red Cell Distribution Width 16.1 % (12.1-15.1); White Blood Count 8.8 10^3/uL (4.0-10.0)
[2022-05-06 13:36] VITALS: BP 130/72; PULSE 84; RESP 18; TEMP 36.2; O2SAT 97
[2022-05-06 13:42] VITALS: BP 130/74; PULSE 84; RESP 18; TEMP 36.2; O2SAT 98
[2022-05-14 13:07] LABS: Basophils % 0.5 %; Eosinophils # 0.1 10^3/uL (0.0-0.8); Eosinophils % 1.4 %; Hematocrit 41.8 % (37.0-47.0); Hemoglobin 13.5 g/dL (11.5-15.3); Lymphocytes # 2.9 10^3/uL (0.8-4.8); Lymphocytes % 33.9 %; Mean Corpuscular HGB Conc 32.3 g/dL (30.0-36.0); Mean Corpuscular Hemoglobin 26.5 pg (28.0-34.0); Mean Platelet Volume 9.6 fL (7.4-10.4); Monocytes # 0.6 10^3/uL (0.2-0.9); Monocytes % 7.4 %; Neutrophils % 55.8 %; Nucleated Red Blood Cells % 0 %; Platelet Count 308 10^3/cmm (130-400); Red Cell Distribution Width 16.1 % (12.1-15.1); White Blood Count 8.4 10^3/uL (4.0-10.0)
== END 2022-06-03 23:59 | disposition home or self-care (01) ==
PROVIDERS: PCP Family Medicine; Visit Provider Internal Medicine Hematology & Oncology
DX: D75.1 Secondary polycythemia (principal)
CPT/HCPCS: 36415; 85025; 99195; 99214

== ENCOUNTER 2022-06-11 11:18 | Oncology outpatient (recurring) (ONCR) | payer MEDICARE, MEDICAID, SELFPAY ==
[2022-06-11 11:49] LABS: Basophils % 0.3 %; Eosinophils # 0.1 10^3/uL (0.0-0.8); Eosinophils % 1.2 %; Hematocrit 46.1 % (37.0-47.0); Hemoglobin 14.5 g/dL (11.5-15.3); Lymphocytes % 32.6 %; Mean Corpuscular HGB Conc 31.5 g/dL (30.0-36.0); Mean Corpuscular Hemoglobin 25.8 pg (28.0-34.0); Mean Corpuscular Volume 81.9 fl (81-99); Mean Platelet Volume 9.5 fL (7.4-10.4); Monocytes # 0.6 10^3/uL (0.2-0.9); Monocytes % 6.3 %; Neutrophils # 5.42 10^3/uL (1.8-7.7); Neutrophils % 58.7 %; Nucleated Red Blood Cells % 0 %; Platelet Count 357 10^3/cmm (130-400); Red Blood Count 5.63 10^6/uL (4.1-5.3); Red Cell Distribution Width 15.1 % (12.1-15.1); White Blood Count 9.2 10^3/uL (4.0-10.0)
[2022-06-11 14:41] VITALS: BP 117/81; PULSE 88; RESP 18; TEMP 36.3; O2SAT 98
== END 2022-07-04 23:59 | disposition home or self-care (01) ==
PROVIDERS: PCP Family Medicine; Visit Provider Internal Medicine Hematology & Oncology
DX: D75.1 Secondary polycythemia (principal); G47.30 Sleep apnea, unspecified; F17.210 Nicotine dependence, cigarettes, uncomplicated; Z86.73 Personal history of transient ischemic attack (TIA), and cerebral infarction without residual deficits; Z95.5 Presence of coronary angioplasty implant and graft; Z79.899 Other long term (current) drug therapy; R51.9 Headache, unspecified; Z86.010 Personal history of colon polyps; Z79.82 Long term (current) use of aspirin; Z95.1 Presence of aortocoronary bypass graft; J41.0 Simple chronic bronchitis
CPT/HCPCS: 85025; 99195; 99214

== ENCOUNTER 2022-07-14 11:22 | Oncology outpatient (recurring) (ONCR) | payer MEDICARE, MEDICAID, SELFPAY ==
[2022-07-14 12:08] LABS: Basophils # 0.1 10^3/uL (0.0-0.1); Basophils % 0.4 %; Eosinophils # 0.2 10^3/uL (0.0-0.8); Eosinophils % 1.3 %; Hematocrit 43.6 % (37.0-47.0); Hemoglobin 13.5 g/dL (11.5-15.3); Lymphocytes # 3.4 10^3/uL (0.8-4.8); Lymphocytes % 30.4 %; Mean Corpuscular Volume 80.9 fl (81-99); Mean Platelet Volume 9.4 fL (7.4-10.4); Monocytes # 0.8 10^3/uL (0.2-0.9); Monocytes % 7.1 %; Nucleated Red Blood Cells % 0 %; Platelet Count 407 10^3/cmm (130-400); Red Blood Count 5.39 10^6/uL (4.1-5.3); Red Cell Distribution Width 14.3 % (12.1-15.1); White Blood Count 11.2 10^3/uL (4.0-10.0)
== END 2022-08-04 23:59 | disposition home or self-care (01) ==
PROVIDERS: PCP Family Medicine; Visit Provider Internal Medicine Hematology & Oncology
DX: D75.1 Secondary polycythemia (principal); G47.30 Sleep apnea, unspecified; F17.210 Nicotine dependence, cigarettes, uncomplicated; Z86.73 Personal history of transient ischemic attack (TIA), and cerebral infarction without residual deficits; Z95.5 Presence of coronary angioplasty implant and graft; Z79.899 Other long term (current) drug therapy; Z86.010 Personal history of colon polyps; Z79.82 Long term (current) use of aspirin; Z95.1 Presence of aortocoronary bypass graft
CPT/HCPCS: 36415; 85025; 99214

== ENCOUNTER → 2022-08-12 10:14 | Outpatient (BNVA) | payer MEDICARE, MEDICAID, SELFPAY | PROVIDERS: PCP Family Medicine; Visit Provider Family Medicine | DX: E78.2 Mixed hyperlipidemia (principal); E11.49 Type 2 diabetes mellitus with other diabetic neurological complication; I10 Essential (primary) hypertension | CPT/HCPCS: 80053; 80061; 83036; 83721; 85025 ==

== ENCOUNTER 2022-08-17 13:04 | Oncology outpatient (recurring) (ONCR) | payer MEDICARE, MEDICAID, SELFPAY ==
[2022-08-17 13:45] LABS: Basophils # 0.1 10^3/uL (0.0-0.1); Basophils % 0.5 %; Eosinophils # 0.1 10^3/uL (0.0-0.8); Eosinophils % 1.2 %; Hematocrit 47.2 % (37.0-47.0); Hemoglobin 14.8 g/dL (11.5-15.3); Lymphocytes # 3.2 10^3/uL (0.8-4.8); Lymphocytes % 33.9 %; Mean Corpuscular HGB Conc 31.4 g/dL (30.0-36.0); Mean Corpuscular Hemoglobin 24.7 pg (28.0-34.0); Mean Corpuscular Volume 78.7 fl (81-99); Mean Platelet Volume 9.8 fL (7.4-10.4); Monocytes # 0.8 10^3/uL (0.2-0.9); Monocytes % 7.9 %; Neutrophils # 5.29 10^3/uL (1.8-7.7); Neutrophils % 55.5 %; Nucleated Red Blood Cells % 0 %; Platelet Count 363 10^3/cmm (130-400); Red Cell Distribution Width 15.4 % (12.1-15.1); White Blood Count 9.5 10^3/uL (4.0-10.0)
[2022-08-17] MEDS: sodium chloride 0.9% (100 ml) 100 ML 500 ML IV (16:15)
[2022-08-17 16:29] VITALS: BP 118/80; PULSE 86
== END 2022-09-01 23:59 | disposition home or self-care (01) ==
PROVIDERS: PCP Family Medicine; Visit Provider Internal Medicine Hematology & Oncology
DX: D75.1 Secondary polycythemia (principal); G47.30 Sleep apnea, unspecified; F17.210 Nicotine dependence, cigarettes, uncomplicated; Z79.82 Long term (current) use of aspirin; Z79.899 Other long term (current) drug therapy; Z86.010 Personal history of colon polyps; Z86.73 Personal history of transient ischemic attack (TIA), and cerebral infarction without residual deficits; Z95.1 Presence of aortocoronary bypass graft; Z95.5 Presence of coronary angioplasty implant and graft
CPT/HCPCS: 36591; 85025; 99195; 99214

== ENCOUNTER → 2022-09-10 11:26 | Outpatient (BNVA) | payer MEDICARE, MEDICAID, SELFPAY | PROVIDERS: PCP Family Medicine; Visit Provider Internal Medicine Cardiovascular Disease | DX: I25.810 Atherosclerosis of coronary artery bypass graft(s) without angina pectoris (principal); D75.1 Secondary polycythemia; G47.33 Obstructive sleep apnea (adult) (pediatric); F11.20 Opioid dependence, uncomplicated; I10 Essential (primary) hypertension; E78.2 Mixed hyperlipidemia; E11.49 Type 2 diabetes mellitus with other diabetic neurological complication; J41.0 Simple chronic bronchitis; Z95.1 Presence of aortocoronary bypass graft; Z79.82 Long term (current) use of aspirin; F17.210 Nicotine dependence, cigarettes, uncomplicated; Z79.84 Long term (current) use of oral hypoglycemic drugs | CPT/HCPCS: 99214 ==

== ENCOUNTER 2022-09-14 11:59 | Oncology outpatient (recurring) (ONCR) | payer MEDICARE, MEDICAID, SELFPAY ==
[2022-09-14 12:27] LABS: Basophils # 0.1 10^3/uL (0.0-0.1); Basophils % 0.4 %; Eosinophils # 0.1 10^3/uL (0.0-0.8); Eosinophils % 1.1 %; Hematocrit 42.4 % (37.0-47.0); Hemoglobin 13.1 g/dL (11.5-15.3); Lymphocytes # 3.5 10^3/uL (0.8-4.8); Lymphocytes % 29.8 %; Mean Corpuscular HGB Conc 30.9 g/dL (30.0-36.0); Mean Corpuscular Hemoglobin 24.6 pg (28.0-34.0); Mean Corpuscular Volume 79.5 fl (81-99); Mean Platelet Volume 9.2 fL (7.4-10.4); Monocytes # 0.8 10^3/uL (0.2-0.9); Monocytes % 6.8 %; Neutrophils # 7.17 10^3/uL (1.8-7.7); Neutrophils % 60.8 %; Nucleated Red Blood Cells % 0 %; Platelet Count 330 10^3/cmm (130-400); Red Blood Count 5.33 10^6/uL (4.1-5.3); Red Cell Distribution Width 16.6 % (12.1-15.1); White Blood Count 11.8 10^3/uL (4.0-10.0)
== END 2022-10-02 23:59 | disposition home or self-care (01) ==
PROVIDERS: PCP Family Medicine; Visit Provider Internal Medicine Hematology & Oncology
DX: D75.1 Secondary polycythemia (principal); G47.30 Sleep apnea, unspecified; F17.210 Nicotine dependence, cigarettes, uncomplicated; Z79.82 Long term (current) use of aspirin; Z79.899 Other long term (current) drug therapy; Z86.010 Personal history of colon polyps; Z86.73 Personal history of transient ischemic attack (TIA), and cerebral infarction without residual deficits; Z95.1 Presence of aortocoronary bypass graft; Z95.5 Presence of coronary angioplasty implant and graft; Z79.52 Long term (current) use of systemic steroids; Z79.2 Long term (current) use of antibiotics
CPT/HCPCS: 36415; 85025; 99214

== ENCOUNTER 2022-09-28 12:58 | Outpatient (CLI) | payer MEDICARE, MEDICAID, SELFPAY ==
--- NOTE | 2022-09-28 | XR_ITS ---
WS: [id number] Exam: XR lumbar spine f/e only [id number] Date/Time of Exam: 09/28/2022 1:28 PM Reason For Exam: vertebrogenic low back No fracture or dislocation. No flexion or extension instability identified. Degenerative disc narrowi ng at L1-2 and L2-3. Mild spondylosis. Facet DJD at all levels. Osteopenia. XR/XR lumbar spine f/e only [id number] IMPRESSION: 1. Degenerative changes and osteopenia. 2. No flexion or extension instability noted.
== END 2022-09-28 12:59 | disposition home or self-care (01) ==
LOC: RAD 13:01
PROVIDERS: PCP Family Medicine; Visit Provider Nurse Practitioner
DX: M85.88 Other specified disorders of bone density and structure, other site (principal)
CPT/HCPCS: 72120

== ENCOUNTER 2022-10-02 10:39 | Outpatient (CLI) | payer MEDICARE, MEDICAID, SELFPAY ==
--- NOTE | 2022-10-02 13:45 | CT_ITS ---
WS: [id number] LDCT LUNG CANCER SCREENING TECHNIQUE: Noncontrast CT of the chest with coronal and sagittal reformatted images. CLINICAL INFORMATION: F17.210 - Nicotine dependence, cigarettes, uncomplicate COMPARISON: CT April 16, 2021 DLP: 79.87 mGy.cm DIvol: Mean CTDIvol: 1.60 (mGy) All CT scans at [facility] use at least one of these dose optimization techniques: automat ed exposure control; mA and/or kV adjustment per patient size (includes targeted exams where dose is matched to clinical indication); or iterative reconstruction. FINDINGS: No acute pulmonary infiltrates. No pleural fluid or focal pneumonia. Prior CABG. No mediastinal or hi lar lymphadenopathy. A few calcified granulomas. Adrenal glands are normal. Normal caliber thoracic a honorio. Mild aortic calcification. Tiny nodule RIGHT upper lobe unchanged. Tiny subpleural nodule LEFT lower lobe unchanged. Calcified g ranuloma LEFT lower lobe. CT/CT lung screening [id number] IMPRESSION: LUNG-RADS: 2-Benign Appearance or Behavior FOLLOW UP: 12 Month: Continue annual screening with LDCT
== END 2022-10-02 10:40 | disposition home or self-care (01) ==
LOC: RAD 10:42
PROVIDERS: PCP Family Medicine; Visit Provider Internal Medicine Pulmonary Disease
DX: Z12.2 Encounter for screening for malignant neoplasm of respiratory organs (principal); F17.210 Nicotine dependence, cigarettes, uncomplicated; J41.8 Mixed simple and mucopurulent chronic bronchitis
CPT/HCPCS: 71271

== ENCOUNTER 2022-11-16 12:23 | Oncology outpatient (recurring) (ONCR) | payer MEDICARE, MEDICAID, SELFPAY ==
[2022-11-16 13:08] LABS: Basophils # 0.1 10^3/uL (0.0-0.1); Basophils % 0.6 %; Eosinophils # 0.1 10^3/uL (0.0-0.8); Eosinophils % 0.9 %; Hemoglobin 16.5 g/dL (11.5-15.3); Lymphocytes # 3.2 10^3/uL (0.8-4.8); Lymphocytes % 29.7 %; Mean Corpuscular HGB Conc 32.4 g/dL (30.0-36.0); Mean Corpuscular Hemoglobin 26.3 pg (28.0-34.0); Mean Corpuscular Volume 81.2 fl (81-99); Mean Platelet Volume 9.4 fL (7.4-10.4); Monocytes # 0.7 10^3/uL (0.2-0.9); Monocytes % 6.7 %; Neutrophils # 6.62 10^3/uL (1.8-7.7); Neutrophils % 61.1 %; Nucleated Red Blood Cells % 0 %; Platelet Count 336 10^3/cmm (130-400); Red Blood Count 6.28 10^6/uL (4.1-5.3); Red Cell Distribution Width 15.9 % (12.1-15.1); White Blood Count 10.8 10^3/uL (4.0-10.0)
[2022-11-16 15:36] VITALS: BP 138/85; PULSE 87; O2SAT 97
== END 2022-12-02 23:59 | disposition home or self-care (01) ==
PROVIDERS: PCP Family Medicine; Visit Provider Internal Medicine Hematology & Oncology
DX: D75.1 Secondary polycythemia (principal); G47.30 Sleep apnea, unspecified; F17.210 Nicotine dependence, cigarettes, uncomplicated; Z79.899 Other long term (current) drug therapy; Z86.010 Personal history of colon polyps; Z86.73 Personal history of transient ischemic attack (TIA), and cerebral infarction without residual deficits; Z95.1 Presence of aortocoronary bypass graft; Z95.5 Presence of coronary angioplasty implant and graft
CPT/HCPCS: 36415; 85025; 99195; 99214

== ENCOUNTER 2022-12-03 11:28 | Oncology outpatient (recurring) (ONCR) | payer MEDICARE, MEDICAID, SELFPAY ==
[2022-12-03 12:09] LABS: Basophils # 0.1 10^3/uL (0.0-0.1); Basophils % 0.5 %; Eosinophils # 0.1 10^3/uL (0.0-0.8); Eosinophils % 0.7 %; Hemoglobin 13.4 g/dL (11.5-15.3); Lymphocytes # 2.5 10^3/uL (0.8-4.8); Lymphocytes % 23.6 %; Mean Corpuscular HGB Conc 31.9 g/dL (30.0-36.0); Mean Corpuscular Hemoglobin 26.7 pg (28.0-34.0); Mean Corpuscular Volume 83.7 fl (81-99); Mean Platelet Volume 9.4 fL (7.4-10.4); Monocytes # 0.7 10^3/uL (0.2-0.9); Monocytes % 6.4 %; Neutrophils # 7.29 10^3/uL (1.8-7.7); Neutrophils % 68.1 %; Nucleated Red Blood Cells % 0 %; Platelet Count 335 10^3/cmm (130-400); Red Blood Count 5.02 10^6/uL (4.1-5.3); Red Cell Distribution Width 15.3 % (12.1-15.1); White Blood Count 10.7 10^3/uL (4.0-10.0)
== END 2023-01-01 23:59 | disposition home or self-care (01) ==
PROVIDERS: Nurse Practitioner Family; PCP Family Medicine; Visit Provider Internal Medicine Hematology & Oncology
DX: D75.1 Secondary polycythemia (principal); G47.30 Sleep apnea, unspecified; F17.210 Nicotine dependence, cigarettes, uncomplicated; Z79.82 Long term (current) use of aspirin; Z79.899 Other long term (current) drug therapy; Z86.010 Personal history of colon polyps; Z86.73 Personal history of transient ischemic attack (TIA), and cerebral infarction without residual deficits; Z95.1 Presence of aortocoronary bypass graft; Z95.5 Presence of coronary angioplasty implant and graft; Z79.52 Long term (current) use of systemic steroids; Z79.2 Long term (current) use of antibiotics
CPT/HCPCS: 36415; 85025; 99213

== ENCOUNTER 2023-01-12 11:58 | Oncology outpatient (recurring) (ONCR) | payer MEDICARE, MEDICAID, SELFPAY ==
[2023-01-12 12:26] VITALS: BP 104/68; PULSE 76; RESP 16; TEMP 36.2; O2SAT 97
[2023-01-12 12:43] LABS: Basophils % 0.4 %; Eosinophils # 0.1 10^3/uL (0.0-0.8); Eosinophils % 1.2 %; Hematocrit 42.4 % (37.0-47.0); Hemoglobin 13.6 g/dL (11.5-15.3); Lymphocytes # 2.6 10^3/uL (0.8-4.8); Lymphocytes % 32.9 %; Mean Corpuscular HGB Conc 32.1 g/dL (30.0-36.0); Mean Corpuscular Hemoglobin 26.9 pg (28.0-34.0); Mean Platelet Volume 9.4 fL (7.4-10.4); Monocytes # 0.6 10^3/uL (0.2-0.9); Monocytes % 7.2 %; Neutrophils # 4.62 10^3/uL (1.8-7.7); Neutrophils % 57.6 %; Nucleated Red Blood Cells % 0 %; Platelet Count 307 10^3/cmm (130-400); Red Blood Count 5.05 10^6/uL (4.1-5.3); Red Cell Distribution Width 14.6 % (12.1-15.1)
[2023-01-12 13:03] LABS: Alanine Aminotransferase 17 U/L (0-33); Albumin Level 3.6 g/dL (3.5-5.2); Alkaline Phosphatase 97 U/L (35-105); Aspartate Amino Transferase 19 U/L (0-32); Blood Urea Nitrogen 6 mg/dL (6-20); Calcium 9.6 mg/dL (8.5-10.5); Carbon Dioxide 27 mmol/L (22-29); Chloride 101 mmol/L (98-107); Globulin 2.6 g/dL (1.3-4.6); Glomerular Filtration Rate 126.7 mL/min (90-130); Glucose 174 mg/dL (65-115); Osmolality Calculated 286 mOsm/kg (285-295); Sodium 137 mmol/L (136-145); Total Bilirubin 0.2 mg/dL (0.15-1.2); Total Protein 6.2 g/dL (6.6-8.7)
== END 2023-02-01 23:59 | disposition home or self-care (01) ==
PROVIDERS: PCP Family Medicine; Visit Provider Internal Medicine Hematology & Oncology
DX: D75.1 Secondary polycythemia (principal); Z79.899 Other long term (current) drug therapy; F17.210 Nicotine dependence, cigarettes, uncomplicated; Z86.73 Personal history of transient ischemic attack (TIA), and cerebral infarction without residual deficits; G47.30 Sleep apnea, unspecified
CPT/HCPCS: 36415; 80053; 85025; 99214

== ENCOUNTER → 2023-03-12 09:06 | Outpatient (BNVA) | payer MEDICARE, MEDICAID, SELFPAY | PROVIDERS: PCP Family Medicine; Visit Provider Internal Medicine Pulmonary Disease | DX: J41.8 Mixed simple and mucopurulent chronic bronchitis (principal); G47.33 Obstructive sleep apnea (adult) (pediatric); J30.2 Other seasonal allergic rhinitis; F17.210 Nicotine dependence, cigarettes, uncomplicated | CPT/HCPCS: 99214 ==

== ENCOUNTER → 2023-03-17 08:47 | Outpatient (BNVA) | payer MEDICARE, MEDICAID, SELFPAY | PROVIDERS: PCP Family Medicine; Visit Provider Family Medicine | DX: E13.43 Other specified diabetes mellitus with diabetic autonomic (poly)neuropathy (principal); K21.9 Gastro-esophageal reflux disease without esophagitis; F32.1 Major depressive disorder, single episode, moderate; G47.00 Insomnia, unspecified; M54.2 Cervicalgia; G89.29 Other chronic pain; E11.49 Type 2 diabetes mellitus with other diabetic neurological complication; E78.2 Mixed hyperlipidemia; L30.9 Dermatitis, unspecified | CPT/HCPCS: 72040; 80048; 80061; 83036; 83721 ==

== ENCOUNTER 2023-04-01 09:53 | Outpatient (CLI) | payer MEDICARE, MEDICAID, SELFPAY ==
[2023-04-01 15:08] VITALS: BP 138/74
== END 2023-04-01 09:54 | disposition home or self-care (01) ==
PROVIDERS: PCP Family Medicine; Visit Provider Internal Medicine Pulmonary Disease
DX: R06.02 Shortness of breath (principal)
CPT/HCPCS: 94010; 94618; 94726; 94729

== ENCOUNTER 2023-04-13 11:06 | Oncology outpatient (recurring) (ONCR) | payer MEDICARE, MEDICAID, SELFPAY ==
[2023-04-13 11:15] VITALS: BP 122/80; PULSE 81; RESP 16; TEMP 36.1; O2SAT 96
[2023-04-13 11:33] LABS: Basophils # 0.1 10^3/uL (0.0-0.1); Basophils % 0.5 %; Eosinophils # 0.1 10^3/uL (0.0-0.8); Hematocrit 48.7 % (36-47); Lymphocytes % 29.4 %; Mean Corpuscular HGB Conc 33.3 g/dL (30-55); Mean Corpuscular Volume 84.3 fl (85-98); Mean Platelet Volume 9.2 fL (7.4-10.4); Monocytes # 0.5 10^3/uL (0.2-0.9); Neutrophils # 6.52 10^3/uL (1.8-7.7); Neutrophils % 63.2 %; Nucleated Red Blood Cells % 0 %; Platelet Count 323 10^3/cmm (157-399); Red Blood Count 5.78 10^6/uL (3.85-5.65); Red Cell Distribution Width 14.7 % (12.1-15.1); White Blood Count 10.31 10^3/uL (3.29-11.43)
[2023-04-13 14:15] VITALS: BP 111/67; PULSE 89; RESP 18; TEMP 36.6; O2SAT 98
== END 2023-05-04 23:59 | disposition home or self-care (01) ==
PROVIDERS: Internal Medicine Medical Oncology; PCP Family Medicine; Visit Provider Internal Medicine Hematology & Oncology
DX: D75.1 Secondary polycythemia (principal); G47.00 Insomnia, unspecified; F17.210 Nicotine dependence, cigarettes, uncomplicated
CPT/HCPCS: 36415; 85025; 99195; 99214

== ENCOUNTER → 2023-04-29 10:22 | Outpatient (BNVA) | payer MEDICARE, MEDICAID, SELFPAY | PROVIDERS: PCP Family Medicine; Visit Provider Anesthesiology Pain Medicine | DX: M54.12 Radiculopathy, cervical region (principal); G89.29 Other chronic pain; M79.18 Myalgia, other site; M47.812 Spondylosis without myelopathy or radiculopathy, cervical region; M50.90 Cervical disc disorder, unspecified, unspecified cervical region; M54.50 Low back pain, unspecified | CPT/HCPCS: 99204 ==

== ENCOUNTER → 2023-05-04 08:28 | Outpatient (BNVA) | payer MEDICARE, MEDICAID, SELFPAY | PROVIDERS: PCP Family Medicine; Visit Provider Anesthesiology Pain Medicine | DX: M79.18 Myalgia, other site (principal); G89.29 Other chronic pain; M47.812 Spondylosis without myelopathy or radiculopathy, cervical region; M50.90 Cervical disc disorder, unspecified, unspecified cervical region | CPT/HCPCS: 20553; 99214; J1030; J3490 ==

== ENCOUNTER 2023-05-31 08:59 | Outpatient (CLI) | payer MEDICARE, MEDICAID, SELFPAY ==
--- NOTE | 2023-05-31 09:30 | MR_ITS ---
WS: [id number] MRI CERVICAL SPINE NONCONTRAST HISTORY: M54.12 - Radiculopathy, cervical region COMPARISON: None available. Technique: Multiplanar, multisequence noncontrast imaging of the cervical spine. Mild straightening of the normal cervical lordosis. No fracture or marrow edema. Mild disc space narr owing and desiccation. Signal within the cervical cord is normal. Visualized posterior fossa is unremarkable. Craniocervical junction, C1 and C2 relationship, odontoid process and soft tissues are normal. C2-C3: Shallow central disc protrusion. Minimal facet arthritis. No stenosis. C3-C4: Small central disc protrusion with mild effacement of CSF. Mild bilateral facet arthritis C4-C5: Osteophytic ridging with a central disc protrusion. Additional moderate-sized LEFT paracentral and proximal foraminal disc protrusion. Mild bilateral facet joint arthritis. Mild foraminal and lashay tral stenosis. C5-C6: Mild osteophytic ridging with a RIGHT paracentral disc protrusion deforming the RIGHT lateral thecal sac. Mild central and bilateral foraminal stenosis and mild facet arthritis. C6-C7: Mild annular disc bulging and osteophytic ridging. Small disc osteophytes in the foramina. Mil d central and bilateral foraminal stenosis and facet arthritis. C7-T1: Normal. T1-2: Mild disc bulging and osteophytic ridging. Paraspinal soft tissue are normal. IMPRESSION: 1. No high-grade central or foraminal stenosis. 2. C2-3 and C3-4: Shallow central disc protrusions and facet arthritis. 3. C4-5: Moderate-sized LEFT paracentral and proximal foraminal disc protrusion. 4. C4-5 and C5-6: Mild central and foraminal stenosis due to combination of osteophytes and disc prot rusions. C5-6 RIGHT paracentral disc protrusion slightly deforms the RIGHT lateral thecal sac. 5. C6-7: Mild central and bilateral foraminal and facet arthritis.
== END 2023-05-31 09:00 | disposition home or self-care (01) ==
LOC: RAD 08:59
PROVIDERS: PCP Family Medicine; Visit Provider Anesthesiology Pain Medicine
DX: M47.22 Other spondylosis with radiculopathy, cervical region (principal); M50.21 Other cervical disc displacement, high cervical region; M48.02 Spinal stenosis, cervical region
CPT/HCPCS: 72141

== ENCOUNTER 2023-07-22 10:55 | Oncology outpatient (recurring) (ONCR) | payer MEDICARE, MEDICAID, SELFPAY ==
[2023-07-22 11:05] VITALS: BP 142/80; PULSE 94; RESP 16; TEMP 36.1; O2SAT 96
[2023-07-22 11:13] LABS: Basophils # 0.1 10^3/uL (0.0-0.1); Basophils % 0.4 %; Eosinophils % 0.2 %; Hematocrit 48.8 % (36-47); Lymphocytes # 2.3 10^3/uL (0.8-4.8); Lymphocytes % 16.8 %; Mean Corpuscular Hemoglobin 28.9 pg (27-33); Mean Platelet Volume 9.2 fL (7.4-10.4); Monocytes # 0.7 10^3/uL (0.2-0.9); Neutrophils # 10.64 10^3/uL (1.8-7.7); Nucleated Red Blood Cells % 0 %; Platelet Count 306 10^3/cmm (157-399); Red Blood Count 5.74 10^6/uL (3.85-5.65); Red Cell Distribution Width 13.2 % (12.1-15.1); White Blood Count 13.82 10^3/uL (3.29-11.43)
[2023-07-22 11:28] LABS: Alanine Aminotransferase 27 U/L (0-33); Albumin Level 4.1 g/dL (3.5-5.2); Alkaline Phosphatase 112 U/L (35-105); Aspartate Amino Transferase 29 U/L (0-32); Blood Urea Nitrogen 8 mg/dL (6-20); Calcium 10.1 mg/dL (8.5-10.5); Carbon Dioxide 26 mmol/L (22-29); Chloride 97 mmol/L (98-107); Ferritin 37 ng/mL (15-150); Globulin 3.2 g/dL (1.3-4.6); Glomerular Filtration Rate 102.3 mL/min (90-130); Glucose 185 mg/dL (65-115); Iron 141 ug/dL (37-145); Osmolality Calculated 287 mOsm/kg (285-295); Percent Saturation 41.5 % (20-50); Sodium 137 mmol/L (136-145); Total Bilirubin 0.2 mg/dL (0.15-1.2); Total Iron Binding Capacity 339 mcg/dl; Total Protein 7.3 g/dL (6.6-8.7); Unsaturated Iron Binding 198 ug/dL (112-347)
[2023-07-22 13:23] VITALS: BP 116/77; PULSE 99; RESP 18; TEMP 37.1; O2SAT 98
== END 2023-08-04 23:59 | disposition home or self-care (01) ==
PROVIDERS: Nurse Practitioner Family; PCP Family Medicine; Visit Provider Internal Medicine Hematology & Oncology
DX: D75.1 Secondary polycythemia (principal); G47.00 Insomnia, unspecified; F17.210 Nicotine dependence, cigarettes, uncomplicated; D45 Polycythemia vera
CPT/HCPCS: 36415; 80053; 82728; 83540; 83550; 85025; 99195; 99214

== ENCOUNTER 2023-08-06 10:42 | Outpatient (CLI) | payer MEDICARE, MEDICAID, SELFPAY ==
--- NOTE | 2023-08-06 10:57 | MM_ITS ---
WS: [id number] Bilateral screening 3D tomosynthesis digital mammogram, 08/06/2023 Clinical Data: screening Comparison: 10/24/2020, 05/24/2019, 04/28/2010, 04/28/2005. Findings: The breast parenchymal pattern shows fibroglandular tissue. No spiculated masses or clustered calcifi cations are seen. There are no secondary signs of carcinoma. Impression: 1. Negative bilateral mammogram unchanged. 2. Recommend annual screening mammograms. MM/[place] [id number] BIRADS: 1-Negative FOLLOW UP: 1 Year Follow-up The CAD food and beverage checker was used.
== END 2023-08-06 10:43 | disposition home or self-care (01) ==
PROVIDERS: PCP Family Medicine; Visit Provider Nurse Practitioner Family
DX: Z12.31 Encounter for screening mammogram for malignant neoplasm of breast (principal)
CPT/HCPCS: 77063; 77067

== ENCOUNTER 2023-08-06 11:03 | Outpatient (CLI) | payer MEDICARE, MEDICAID, SELFPAY ==
[2023-08-06 12:14] LABS: Basophils % 0.4 %; Eosinophils # 0.1 10^3/uL (0.0-0.8); Eosinophils % 1.3 %; Hematocrit 47.6 % (36-47); Lymphocytes # 2.6 10^3/uL (0.8-4.8); Lymphocytes % 26.8 %; Mean Corpuscular HGB Conc 33.2 g/dL (30-55); Mean Corpuscular Hemoglobin 28.8 pg (27-33); Mean Corpuscular Volume 86.7 fl (85-98); Mean Platelet Volume 9.4 fL (7.4-10.4); Monocytes # 0.5 10^3/uL (0.2-0.9); Monocytes % 5.5 %; Neutrophils % 65.1 %; Nucleated Red Blood Cells % 0 %; Platelet Count 317 10^3/cmm (157-399); Red Blood Count 5.49 10^6/uL (3.85-5.65); Red Cell Distribution Width 13.2 % (12.1-15.1); White Blood Count 9.84 10^3/uL (3.29-11.43)
== END 2023-08-06 11:04 | disposition home or self-care (01) ==
LOC: LAB 08-16 09:34
PROVIDERS: PCP Family Medicine; Visit Provider Nurse Practitioner Family
DX: D75.1 Secondary polycythemia (principal)
CPT/HCPCS: 36415; 85025

== ENCOUNTER 2023-08-10 12:00 | Emergency (ER) | payer MEDICARE, MEDICAID, SELFPAY ==
[2023-08-10 12:04] VITALS: BP 125/70; PULSE 76; RESP 18; TEMP 36.6; O2SAT 95
--- NOTE | 2023-08-10 12:05 | ECG_ITS ---
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 Measurements Intervals [place] Rate: 75 P: 32 AL: 152 QRS: 100 QRSD: 127 T: 75 QT: 437 QTc: 490 Interpretive Statements SINUS RHYTHM RIGHT BUNDLE BRANCH BLOCK [120+ ms QRS DURATION, UPRIGHT V1, 40+ ms S IN I/aVL/V4/V5/V6] Compared to ECG 06/01/2019 17:04:42 No significant changes Electronically Signed On 08-10-2023 13:42:36 NUTTER UP by Brandt Molina M.D. [id number] f
--- NOTE | 2023-08-10 12:05 | XRR_ITS ---
PROCEDURE INFORMATION: Exam: XR Chest Exam date and time: 08/10/2023 12:29 PM Age: 58 years old Clinical indication: Pain; Angina pectoris; Additional info: Cp TECHNIQUE: Imaging protocol: Radiologic exam of the chest. Views: 1 view. COMPARISON: CT lung screening [id number] 10/02/2022 10:53 AM FINDINGS: Lungs: No consolidation. Pleural spaces: No pleural effusion. No pneumothorax. Heart/Mediastinum: No cardiomegaly. Bones/joints: No acute findings. XR/XR chest 1V portable [id number] IMPRESSION: No acute findings.
--- NOTE | 2023-08-10 12:11 | W.ED.CHESTPA ---
HPI - Chest Pain General: Chief Complaint: Chest Pain Stated Complaint: chest pain Time Seen by Provider: 08/10/23 12:05 Source: patient and EMS Mode of arrival: EMS Limitations: no limitations History of Present Illness: 58-year-old female with a history of heart disease she states that she has had chest pain in the center of her chest has been constant over the last 10 days states been a pressure type pain some pain down her arm she denies any shortness of breath. She denies any nausea or diaphoresis denies any worsening proving factors pain is currently a 2 out of 10 did receive nitro and aspirin in route. Associated symptoms: Deny abdominal pain, dyspnea, fever(s), nausea or vomiting Review of Systems Const: Denies: fever(s), chills, body aches or change in appetite ENMT: Denies: throat pain or dental pain Card: Reports: chest pain Resp: Denies: dyspnea GI: Denies: abdominal pain, nausea, vomiting or diarrhea Musc: Denies: neck pain or back pain Skin/Breast: Denies: rash Neuro: Denies: headache(s) PFSH ED PFSH: Medical History Polycythemia, secondary Major depression did not do well on Zoloft or Cymbalta in the past. Chronic constipation Failed most previous therapies. Restless leg syndrome Gastroparesis due to secondary diabetes Chronic nausea Hyperlipidemia Vitamin D deficiency Polycythemia vera Diabetes GERD (gastroesophageal reflux disease) CAD (coronary artery disease) of artery bypass graft COPD (chronic obstructive pulmonary disease) Surgical History S/P CABG (coronary artery bypass graft) x4 S/P coronary artery stent placement x2 S/P section S/P shoulder surgery S/P hysterectomy S/P cholecystectomy S/P tonsillectomy Family History Other CAD (coronary artery disease) Diabetes Heart disease Hyperlipidemia Hypertension Stroke Denies family history of Clotting disorder Dementia Psychiatric illness Chronic kidney disease (CKD) Suicide Anesthesia complication Bleeding disorder Lung disease Cancer Social History Smoking and tobacco/nicotine status: current every day tobacco/nicotine user cigarettes Packs smoked per day: 0.5 Years cigarettes smoked: 49 [ Other cigarette details: Hx of 1.5 PPD x 30 Years, started at age 8] Second hand smoke exposure: Yes Alcohol intake: former Year of sobriety/quit date alcohol: 1999 Substance/Drug Use: never Lives independently: Yes Household members: none Marital status: Current occupational status: disabled Do you think of yourself as: Straight/Heterosexual Current gender identity: Female Female Reproductive History: Spontaneous abortions: No Physical Exam Const: COMMON NORMALS: no acute distress, patient oriented x3 and healthy appearing HENMT: COMMON NORMALS: normocephalic and atraumatic HEAD & SCALP: normocephalic and atraumatic Neck/C-Spine: COMMON NORMALS: full ROM and supple Chest: COMMONS NORMALS: normal inspection of the chest OTHER: tenderness in center of chest Resp: COMMON NORMALS: normal respiratory effort, No retractions, No use of accessory muscles and clear to auscultation bilaterally AUSCULTATION: clear to auscultation bilaterally Cardio: COMMON NORMALS: regular rate, regular rhythm and No murmurs present (Cardio) RATE: regular rate RHYTHM: regular rhythm GI: COMMON NORMALS: Normal to inspection, nondistended, normoactive bowel sounds present, Soft to palpation, non-tender and no masses PALPATION: Yes Soft to palpation Extremity: COMMON NORMALS: normal to inspection and full ROM Neuro: COMMON NORMALS: patient oriented x3, moves all extremities and no focal motor deficits Psych: COMMON NORMALS: mental status grossly normal, Normal thought process present and cooperative THOUGHT PROCESS: Normal thought process present Skin: COMMON NORMALS: no rashes or lesions noted and no wounds GENERAL SKIN EXAM: no rashes or lesions noted Course Vital Signs: Vital signs: Vital Signs Temperature 97.9 F 08/10/23 12:04 Pulse Rate 76 08/10/23 12:04 Respiratory Rate 18 08/10/23 12:04 Blood Pressure 125/70 08/10/23 12:04 Pulse Oximetry 95 08/10/23 12:04 Oxygen Delivery Me thod Room Air 08/10/23 12:04 MDM - Chest Pain Medical Decision Making Patient presents for chest pains atypical in nature has been going on for 10 days she does have chest wall tenderness patient's troponin here is normal EKG and x-ray are normal as well she is stable for discharge 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 Medical Records I reviewed the patient's medical records. Lab Data I reviewed the patient's lab results. 08/10/23 12:00 08/10/23 12:00 Radiology Impressions Chest X-Ray 08/10/23 12:05 IMPRESSION: No acute findings. Laboratory Results WBC 8.89 10^3/uL (3.29-11.43) 08/10/23 12:00 RBC 5.73 10^6/uL (3.85-5.65) H 08/10/23 12:00 Hgb 16.80 g/dL (11.27-16.99) 08/10/23 12:00 Hct 49.2 % (36-47) H 08/10/23 12:00 MCV 85.9 fl (85-98) 08/10/23 12:00 MCH 29.3 pg (27-33) 08/10/23 12:00 MCHC 34.1 g/dL (30-55) 08/10/23 12:00 RDW 13.3 % (12.1-15.1) 08/10/23 12:00 Plt Count 315 10^3/cmm (157-399) 08/10/23 12:00 MPV 9.5 fL (7.4-10.4) 08/10/23 12:00 Neut % (Auto) 62.4 % 08/10/23 12:00 Lymph % (Auto) 29.0 % 08/10/23 12:00 [place] % (Auto) 6.0 % 08/10/23 12:00 Eos % (Auto) 1.2 % 08/10/23 12:00 Baso % (Auto) 0.4 % 08/10/23 12:00 Neut # (Auto) 5.54 10^3/uL (1.8-7.7) 08/10/23 12:00 Lymph # (Auto) 2.6 10^3/uL (0.8-4.8) 08/10/23 12:00 [place] # (Auto) 0.5 10^3/uL (0.2-0.9) 08/10/23 12:00 Eos # (Auto) 0.1 10^3/uL (0.0-0.8) 08/10/23 12:00 Baso # (Auto) 0.0 10^3/uL (0.0-0.1) 08/10/23 12:00 Nucleated RBC % (auto) 0 % 08/10/23 12:00 Nucleated RBCs # 0.0 /100WBC 08/10/23 12:00 PT 12.70 SECONDS (12.1-14.9) 08/10/23 12:00 INR 0.92 (0.8-1.2) 08/10/23 12:00 Sodium 137 mmol/L (136-145) 08/10/23 12:00 Potassium 4.6 mmol/L (3.5-5.1) 08/10/23 12:00 Chloride 97 mmol/L (98-107) L 08/10/23 12:00 Carbon Dioxide 26 mmol/L (22-29) 08/10/23 12:00 Anion Gap 18.6 (5-19) 08/10/23 12:00 BUN 9 mg/dL (6-20) 08/10/23 12:00 Creatinine 0.6 mg/dL (0.5-0.9) 08/10/23 12:00 GFR Calculation 102.3 mL/min (90-130) 08/10/23 12:00 Glucose 133 mg/dL (65-115) H 08/10/23 12:00 Calculated Osmolality 285 mOsm/kg (285-295) 08/10/23 12:00 Calcium 10.1 mg/dL (8.5-10.5) 08/10/23 12:00 Total Bilirubin 0.4 mg/dL (0.15-1.2) 08/10/23 12:00 AST 32 U/L (0-32) 08/10/23 12:00 ALT 26 U/L (0-33) 08/10/23 12:00 Alkaline Phosphatase 111 U/L (35-105) H 08/10/23 12:00 Troponin T Baseline < 6 ng/L (0-10) 08/10/23 12:00 Total Protein 7.0 g/dL (6.6-8.7) 08/10/23 12:00 Albumin 4.2 g/dL (3.5-5.2) 08/10/23 12:00 Globulin 2.8 g/dL (1.3-4.6) 08/10/23 12:00 Lipase 17 U/L (13-60) 08/10/23 12:00 All radiology interpretation(s) finalized by discharge EKG Data EKG 1: I personally reviewed and interpreted this EKG as follows: EKG interpretation date: 08/10/23 EKG interpretation time: 12:05 Interpretation: nsr hr [address] or t wave abnormalities qrs 127 qtc 466 Discharge Plan Discharge Patient Disposition: Home Clinical Impression: Chest pain Condition: Stable Prescriptions: No Action multivitamin Tablet 1 tab PO DAILY aspirin 81 mg tablet,chewable 81 mg PO DAILY nitroglycerin 0.4 mg tablet, sublingual 0.4 mg SUBLINGUAL Q5M PRN (Reason: chest pain) Qty: 25 6RF polyethylene glycol 3350 17 gram/dose powder See Rx Instructions .ROUTE .COMPLEX Qty: 510 5RF Dose Instruction: MIX 17 GRAMS WITH 8 OUNCE/S.OF JUICE/WATER BY MOUTH TWICE DAILY FOR 30 DAYS Rx Instructions: MIX 17 GRAMS WITH 8 OUNCE/S.OF JUICE/WATER BY MOUTH TWICE DAILY FOR 30 DAYS icosapent ethyl [Vascepa] 1 gram capsule 2 g PO BID Qty: 120 6RF atorvastatin 40 mg tablet 40 mg PO DAILY 90 Days Qty: 90 1RF cyclobenzaprine 10 mg tablet 10 mg PO TID PRN (Reason: muscle spasm) 90 Days Qty: 180 5RF Rx Instructions: may take 1/2 to 1 tab mupirocin 2 % ointment 1 applic topical BID 10 Days Qty: 22 2RF amitriptyline 25 mg tablet 25 mg PO DAILY 30 Days Qty: 30 4RF famotidine 40 mg tablet 40 mg PO .at bedtime 90 Days Qty: 90 1RF fluoxetine 20 mg tablet 20 mg PO DAILY 90 Days Qty: 90 0RF hydrochlorothiazide 12.5 mg tablet 12.5 mg PO DAILY 90 Days Qty: 90 0RF fluticasone propionate [Children's Flonase Allergy Rlf] 50 mcg/actuation spray,suspension 1 spray intranasal BID 30 Days Qty: 16 6RF Rx Instructions: administer into each nostril hydroxyzine HCl 50 mg tablet 50 mg PO .at bedtime 90 Days Qty: 90 1RF Linzess 290 mcg capsule See Rx Instructions .ROUTE .COMPLEX Qty: 90 1RF Dose Instruction: TAKE 1 CAPSULE BY MOUTH EVERY IN THE MORNING FOR 90 DAYS Rx Instructions: TAKE 1 CAPSULE BY MOUTH EVERY IN THE MORNING FOR 90 DAYS loratadine [Allergy Relief (loratadine)] 10 mg tablet See Rx Instructions .ROUTE .COMPLEX Qty: 90 1RF Dose Instruction: TAKE 1 TABLET BY MOUTH DAILY FOR 90 DAYS Rx Instructions: TAKE 1 TABLET BY MOUTH DAILY FOR 90 DAYS montelukast 10 mg tablet 10 mg PO DAILY 90 Days Qty: 90 1RF ondansetron HCl 4 mg tablet See Rx Instructions .ROUTE .COMPLEX Qty: 180 1RF Dose Instruction: TAKE 1 TABLET BY MOUTH TWICE A DAY NEEDED FOR NAUSEA AND VOMITING MAX DAILY 2 TABLETS Rx Instructions: TAKE 1 TABLET BY MOUTH TWICE A DAY NEEDED FOR NAUSEA AND VOMITING MAX DAILY 2 TABLETS pantoprazole 40 mg tablet,delayed release (DR/EC) 40 mg PO DAILY 90 Days Qty: 90 1RF ropinirole 0.5 mg tablet 0.5 mg PO .at bedtime 90 Days Qty: 90 1RF Januvia 100 mg tablet 100 mg PO DAILY 90 Days Qty: 90 1RF ticagrelor 60 mg tablet 60 mg PO BID Rx Instructions: Brilinta Spiriva Respimat 2.5 mcg/actuation mist 2 puff inhalation DAILY 30 Days Qty: 4 6RF oxycodone 10 mg tablet 10 mg PO TID PRN (Reason: Pain) metoclopramide HCl 10 mg tablet See Rx Instructions .ROUTE .COMPLEX Qty: 270 1RF Dose Instruction: TAKE 1 TABLET BY MOUTH 3 TIMES A DAY WITH MEALS FOR 90 DAYS Rx Instructions: TAKE 1 TABLET BY MOUTH 3 TIMES A DAY WITH MEALS FOR 90 DAYS triamcinolone acetonide 0.1 % cream 1 applic topical DAILY PRN (Reason: rash) Qty: 80 0RF Rx Instructions: left leg miscellaneous medical supply Misc See Rx Instructions miscellaneous .COMPLEX Qty: 1 0RF Rx Instructions: cane miscellaneous; miscellaneous medical supply Misc See Rx Instructions miscellaneous .COMPLEX Qty: 1 0RF Rx Instructions: sacroiliac joint belt miscellaneous; morphine 15 mg tablet extended release 15 mg PO TID 30 Days Qty: 90 0RF ranolazine 1,000 mg tablet extended release 12 hr 1,000 mg PO BID Qty: 180 3RF cholecalciferol (vitamin D3) 1,250 mcg (50,000 unit) capsule See Rx Instructions .ROUTE .COMPLEX Qty: 13 0RF Dose Instruction: TAKE 1 CAPSULE BY MOUTH EVERY 7 DAYS FOR 90 DAYS Rx Instructions: TAKE 1 CAPSULE BY MOUTH EVERY 7 DAYS FOR 90 DAYS triamcinolone acetonide 0.1 % ointment See Rx Instructions .ROUTE .COMPLEX Qty: 80 0RF Dose Instruction: TAKE 1 APPLICATION TOPICAL TWICE A DAY NEEDED FOR ITCHING Rx Instructions: TAKE 1 APPLICATION TOPICAL TWICE A DAY NEEDED FOR ITCHING Discharge Orders: Discharge ED (Routine); Ordered 08/10/23 Ordered By: Kamilah Braga Referrals: Lexi Tripathi MD [Primary Care Provider] - 1-3 days Discharge Diet: Advance as tolerated Discharge Activity: Resume usual activity Patient Instructions: Chest Pain (ED) Coding Level of Care Code ED Director Of Learning for Kathrin Canales
[2023-08-10 12:21] LABS: Basophils % 0.4 %; Eosinophils # 0.1 10^3/uL (0.0-0.8); Eosinophils % 1.2 %; Hematocrit 49.2 % (36-47); Lymphocytes # 2.6 10^3/uL (0.8-4.8); Mean Corpuscular HGB Conc 34.1 g/dL (30-55); Mean Corpuscular Hemoglobin 29.3 pg (27-33); Mean Corpuscular Volume 85.9 fl (85-98); Mean Platelet Volume 9.5 fL (7.4-10.4); Monocytes # 0.5 10^3/uL (0.2-0.9); Neutrophils # 5.54 10^3/uL (1.8-7.7); Neutrophils % 62.4 %; Nucleated Red Blood Cells % 0 %; Platelet Count 315 10^3/cmm (157-399); Red Blood Count 5.73 10^6/uL (3.85-5.65); Red Cell Distribution Width 13.3 % (12.1-15.1); White Blood Count 8.89 10^3/uL (3.29-11.43)
[2023-08-10 12:42] LABS: INR 0.92 (0.8-1.2)
[2023-08-10 12:48] LABS: Troponin(5th) Baseline < 6 ng/L (0-10)
[2023-08-10 12:59] LABS: Alanine Aminotransferase 26 U/L (0-33); Albumin Level 4.2 g/dL (3.5-5.2); Alkaline Phosphatase 111 U/L (35-105); Aspartate Amino Transferase 32 U/L (0-32); Blood Urea Nitrogen 9 mg/dL (6-20); Calcium 10.1 mg/dL (8.5-10.5); Carbon Dioxide 26 mmol/L (22-29); Chloride 97 mmol/L (98-107); Creatinine Clr Calc Pharmacy 98.5122; Globulin 2.8 g/dL (1.3-4.6); Glomerular Filtration Rate 102.3 mL/min (90-130); Glucose 133 mg/dL (65-115); Lipase 17 U/L (13-60); Osmolality Calculated 285 mOsm/kg (285-295); Sodium 137 mmol/L (136-145); Total Bilirubin 0.4 mg/dL (0.15-1.2)
[2023-08-10 13:01] LABS: Anion Gap 18.6 (5-19); Potassium 4.6 mmol/L (3.5-5.1)
[2023-08-10 13:24] VITALS: BP 119/70; PULSE 65; O2SAT 97
== END 2023-08-10 13:26 | disposition home or self-care (01) ==
PROVIDERS: Emergency Provider Emergency Medicine; PCP Family Medicine
DX: R07.9 Chest pain, unspecified (principal); Z79.82 Long term (current) use of aspirin; F17.210 Nicotine dependence, cigarettes, uncomplicated; E78.5 Hyperlipidemia, unspecified; I25.10 Atherosclerotic heart disease of native coronary artery without angina pectoris; J44.9 Chronic obstructive pulmonary disease, unspecified; Z95.1 Presence of aortocoronary bypass graft
CPT/HCPCS: 71045; 80053; 83690; 84484; 85025; 85610; 93005; 99285

== ENCOUNTER → 2023-08-31 10:06 | Outpatient (BNVA) | payer MEDICARE, MEDICAID, SELFPAY | PROVIDERS: PCP Family Medicine; Visit Provider Anesthesiology Pain Medicine | DX: M54.12 Radiculopathy, cervical region (principal); G89.29 Other chronic pain; M79.18 Myalgia, other site; M47.812 Spondylosis without myelopathy or radiculopathy, cervical region; M50.90 Cervical disc disorder, unspecified, unspecified cervical region | CPT/HCPCS: 99214 ==

== ENCOUNTER → 2023-09-23 14:30 | Outpatient (BNVA) | payer MEDICARE, MEDICAID, SELFPAY | PROVIDERS: PCP Family Medicine; Visit Provider Anesthesiology Pain Medicine | DX: M79.18 Myalgia, other site (principal); G89.29 Other chronic pain; M47.812 Spondylosis without myelopathy or radiculopathy, cervical region; M50.90 Cervical disc disorder, unspecified, unspecified cervical region | CPT/HCPCS: 20553; 99214; J1030; J3490 ==

== ENCOUNTER 2023-10-04 13:26 | Outpatient (CLI) | payer MEDICARE, MEDICAID, SELFPAY ==
--- NOTE | 2023-10-04 14:00 | XR_ITS ---
WS: [id number] DEXA (DUAL ENERGY X-RAY ABSORPTIOMETRY) Bone mineral density was performed using a Narvar machine. HISTORY: Z78.0 - Asymptomatic menopausal state COMPARISON: None available. Left forearm BMD: 0.560 g/cm2. T score: -3.6 Z score: -2.7 Total hip BMD: Left: 0.801 g/cm2. T score: -1.6 Z score: -1.1 Right: 0.807 g/cm2. T score: -1.6 Z score: -1.1 10 year probability of a major osteoporotic fracture is 10.2%. IMPRESSION: OSTEOPOROSIS based upon the WHO classification for females.
== END 2023-10-04 13:27 | disposition home or self-care (01) ==
LOC: RAD 13:27
PROVIDERS: PCP Family Medicine; Visit Provider Family Medicine
DX: Z78.0 Asymptomatic menopausal state (principal); Z13.820 Encounter for screening for osteoporosis; M81.0 Age-related osteoporosis without current pathological fracture
CPT/HCPCS: 77080

== ENCOUNTER → 2023-10-05 12:34 | Outpatient (BNVA) | payer MEDICARE, MEDICAID, SELFPAY | PROVIDERS: PCP Family Medicine; Visit Provider Otolaryngology | DX: K21.9 Gastro-esophageal reflux disease without esophagitis; R49.0 Dysphonia; R13.14 Dysphagia, pharyngoesophageal phase; J34.2 Deviated nasal septum; F17.210 Nicotine dependence, cigarettes, uncomplicated | CPT/HCPCS: 31575; 99205 ==

== ENCOUNTER 2023-10-07 09:12 | Outpatient (CLI) | payer MEDICARE, MEDICAID, SELFPAY ==
--- NOTE | 2023-10-07 09:30 | MR_ITS ---
WS: [id number] MRI CERVICAL SPINE NONCONTRAST HISTORY: M54.12 - Radiculopathy, cervical region COMPARISON: None available. Technique: Multiplanar, multisequence noncontrast imaging of the cervical spine. LEFT straightening of the normal cervical lordosis. No marrow edema or fracture. Mild diffuse disc space narrowing and desiccation, similar to the prior study. Craniocervical junction, C1 and C2 relationship, odontoid process and soft tissues are normal. C2-C3: Shallow central disc protrusion, unchanged. No stenosis. C3-C4: Mild osteophytic ridging and small central disc protrusion. Disc protrusion encroaches upon th e ventral thecal sac but does not contact the thecal sac. Mild central encroachment and bilateral fac et joint arthritis. C4-C5: Small central disc protrusion and osteophytic ridging. Shallow LEFT paracentral disc osteophyt e. Mild bilateral facet arthritis. Mild central and bilateral foraminal stenosis. No change. C5-C6: Mild osteophytic ridging with a RIGHT shallow paracentral disc protrusion deforming the RIGHT lateral thecal sac. Mild central and bilateral foraminal stenosis. Slightly greater stenosis proximal RIGHT foramen due to the disc osteophyte. Similar to the prior study. C6-C7: Diffuse annular disc bulging with osteophytic ridging. Disc osteophyte complexes. Slight progr ession of bilateral foraminal stenosis. Mild central with moderate bilateral foraminal stenosis due t o the disc osteophyte disease. C7-T1: Normal. T1-2: Mild disc bulging. Small RIGHT foraminal disc osteophyte with only mild foraminal stenosis. There is an additional very small disc protrusion in the RIGHT foramen at T3-4. Paraspinal soft tissue are normal. IMPRESSION: 1. Mild progression of the disc osteophyte disease at C6-7 and stenosis. 2. C6-7: Mild central with moderate bilateral foraminal stenosis. Slightly greater encroachment upon the ventral thecal sac and foramina. 3. C5-6: Mild central and bilateral foraminal stenosis due to disc and osteophyte disease. Asymmetri c RIGHT paracentral disc protrusion. 4. C4-5: Mild central and bilateral foraminal stenosis, no change. 5. C3-4: Mild central stenosis with a central disc protrusion. No change. 6. Small RIGHT foraminal disc or disc osteophyte complexes at T1-2 and T3-4.
--- NOTE | 2023-10-07 11:00 | CT_ITS ---
WS: [id number] LDCT LUNG CANCER SCREENING TECHNIQUE: Noncontrast CT of the chest with coronal and sagittal reformatted images. CLINICAL INFORMATION: Cancer Screen COMPARISON: 10/02/2022 DLP: 88.51 mGy.cm DIvol: Mean CTDIvol: 2.20 (mGy) All CT scans at [facility] use at least one of these dose optimization techniques: automat ed exposure control; mA and/or kV adjustment per patient size (includes targeted exams where dose is matched to clinical indication); or iterative reconstruction. FINDINGS: A few tiny nodules RIGHT lower lobe. Tiny subpleural nodule LEFT lower lobe unchanged. Calcified gran uloma LEFT lower lobe. Lungs are well aerated. No new suspicious pulmonary parenchymal abnormalities. Prior CABG. No mediast inal or hilar lymphadenopathy. Adrenal glands are normal. Normal caliber thoracic aorta. Mild aortic calcification. IMPRESSION: CT/CT lung screening [id number] LUNG-RADS: 2-Benign Appearance or Behavior FOLLOW UP: 12 Month: Continue annual screening with LDCT
== END 2023-10-07 09:13 | disposition home or self-care (01) ==
LOC: RAD 09:12
PROVIDERS: PCP Family Medicine; Visit Provider Anesthesiology Pain Medicine
DX: F17.210 Nicotine dependence, cigarettes, uncomplicated (principal); Z12.2 Encounter for screening for malignant neoplasm of respiratory organs; R91.8 Other nonspecific abnormal finding of lung field; M54.12 Radiculopathy, cervical region; M48.02 Spinal stenosis, cervical region
CPT/HCPCS: 71271; 72141

== ENCOUNTER 2023-10-15 10:39 | Outpatient (CLI) | payer MEDICARE, MEDICAID, SELFPAY ==
--- NOTE | 2023-10-15 11:00 | FL_ITS ---
WS: [id number] Modified barium swallow, 10/15/2023 Clinical Data: Comparison: None. Fluoroscopy time: 1min [id number] # of spot films: 0 Findings: The patient had extended oral preparation and there was mild premature spillage down to the vallecula . With liquids there is a trace penetration but no aspiration. With the mayelin cracker there was vall ecular residue which partially cleared with swallows but a mild residue persisted. The barium tablet flowed normally from the oral cavity into the hypopharynx, then the esophagus and finally the stomach . Impression: 1. Extended oral preparation with mild premature spillage to the vallecula. 2. Trace penetration but no aspiration with liquids. 3. Minimal vallecular residue with mayelin cracker which partially cleared with multiple swallows.
== END 2023-10-15 10:40 | disposition home or self-care (01) ==
LOC: RAD 10:40
PROVIDERS: PCP Family Medicine; Visit Provider Otolaryngology
DX: R13.10 Dysphagia, unspecified (principal)
CPT/HCPCS: 74230; 92611

== ENCOUNTER 2023-10-20 12:50 | Oncology outpatient (recurring) (ONCR) | payer MEDICARE, MEDICAID, SELFPAY ==
[2023-10-20 13:39] LABS: Basophils # 0.1 10^3/uL (0.0-0.1); Basophils % 0.7 %; Eosinophils # 0.1 10^3/uL (0.0-0.8); Eosinophils % 1.6 %; Hematocrit 46.8 % (36-47); Lymphocytes # 2.3 10^3/uL (0.8-4.8); Mean Corpuscular HGB Conc 33.8 g/dL (30-55); Mean Corpuscular Hemoglobin 29.2 pg (27-33); Mean Corpuscular Volume 86.5 fl (85-98); Mean Platelet Volume 9.5 fL (7.4-10.4); Monocytes # 0.6 10^3/uL (0.2-0.9); Monocytes % 7.2 %; Neutrophils # 4.85 10^3/uL (1.8-7.7); Neutrophils % 60.4 %; Nucleated Red Blood Cells % 0 %; Platelet Count 245 10^3/cmm (157-399); Red Blood Count 5.41 10^6/uL (3.85-5.65); Red Cell Distribution Width 12.9 % (12.1-15.1); White Blood Count 8.04 10^3/uL (3.29-11.43)
[2023-10-20 13:56] LABS: Alanine Aminotransferase 34 U/L (0-33); Albumin Level 3.9 g/dL (3.5-5.2); Alkaline Phosphatase 105 U/L (35-105); Aspartate Amino Transferase 25 U/L (0-32); Blood Urea Nitrogen 12 mg/dL (6-20); Calcium 9.3 mg/dL (8.5-10.5); Carbon Dioxide 25 mmol/L (22-29); Chloride 100 mmol/L (98-107); Globulin 2.8 g/dL (1.3-4.6); Glomerular Filtration Rate 102.3 mL/min (90-130); Glucose 268 mg/dL (65-115); Osmolality Calculated 291 mOsm/kg (285-295); Sodium 136 mmol/L (136-145); Total Bilirubin 0.2 mg/dL (0.15-1.2); Total Protein 6.7 g/dL (6.6-8.7)
[2023-10-20 14:02] LABS: Anion Gap 15.4 (5-19); Potassium 4.4 mmol/L (3.5-5.1)
[2023-10-20 14:31] LABS: Estmated Average Glucose 163; Hemoglobin A1C 7.3 % (4.0-6.0)
== END 2023-11-02 23:59 | disposition home or self-care (01) ==
PROVIDERS: Nurse Practitioner Family; PCP Family Medicine; Visit Provider Internal Medicine Hematology & Oncology
DX: D75.1 Secondary polycythemia (principal); G47.00 Insomnia, unspecified; F17.210 Nicotine dependence, cigarettes, uncomplicated; D45 Polycythemia vera
CPT/HCPCS: 36415; 80053; 83036; 85025; 99214

== ENCOUNTER → 2023-10-28 11:10 | Outpatient (BNVA) | payer MEDICARE, MEDICAID, SELFPAY | PROVIDERS: PCP Family Medicine; Visit Provider Internal Medicine Cardiovascular Disease | DX: E78.2 Mixed hyperlipidemia (principal); Z95.1 Presence of aortocoronary bypass graft; R00.2 Palpitations; I10 Essential (primary) hypertension; F17.210 Nicotine dependence, cigarettes, uncomplicated; E11.49 Type 2 diabetes mellitus with other diabetic neurological complication; D75.1 Secondary polycythemia; J41.0 Simple chronic bronchitis; G47.33 Obstructive sleep apnea (adult) (pediatric); Z79.84 Long term (current) use of oral hypoglycemic drugs | CPT/HCPCS: 99213 ==

== ENCOUNTER → 2023-11-03 08:38 | Outpatient (BNVA) | payer MEDICARE, MEDICAID, SELFPAY | PROVIDERS: PCP Family Medicine; Visit Provider Otolaryngology | DX: R13.14 Dysphagia, pharyngoesophageal phase (principal); G89.29 Other chronic pain; M79.18 Myalgia, other site; M47.812 Spondylosis without myelopathy or radiculopathy, cervical region; M50.90 Cervical disc disorder, unspecified, unspecified cervical region | CPT/HCPCS: 99213; 99214 ==

== ENCOUNTER → 2023-11-17 13:55 | Outpatient (BNVA) | payer MEDICARE, MEDICAID, SELFPAY | PROVIDERS: PCP Family Medicine; Visit Provider Anesthesiology Pain Medicine | DX: M79.18 Myalgia, other site (principal); G89.29 Other chronic pain; M54.9 Dorsalgia, unspecified; M47.812 Spondylosis without myelopathy or radiculopathy, cervical region; M50.90 Cervical disc disorder, unspecified, unspecified cervical region | CPT/HCPCS: 20553; 99214; J1010; J3490 ==

== ENCOUNTER → 2023-12-20 10:17 | Outpatient (BNVA) | payer MEDICARE, MEDICAID, SELFPAY | PROVIDERS: PCP Family Medicine; Visit Provider Anesthesiology Pain Medicine | DX: G89.29 Other chronic pain; M79.18 Myalgia, other site; M47.812 Spondylosis without myelopathy or radiculopathy, cervical region; M50.90 Cervical disc disorder, unspecified, unspecified cervical region; M54.50 Low back pain, unspecified | CPT/HCPCS: 99214 ==

== ENCOUNTER 2024-02-23 10:31 | Oncology outpatient (recurring) (ONCR) | payer MEDICARE, MEDICAID, SELFPAY ==
[2024-02-23 10:54] LABS: Basophils # 0.1 10^3/uL (0.0-0.1); Basophils % 0.6 %; Eosinophils # 0.1 10^3/uL (0.0-0.8); Hematocrit 47.5 % (36-47); Lymphocytes # 2.3 10^3/uL (0.8-4.8); Mean Corpuscular HGB Conc 34.7 g/dL (30-55); Mean Corpuscular Hemoglobin 29.8 pg (27-33); Mean Corpuscular Volume 85.7 fl (85-98); Monocytes # 0.7 10^3/uL (0.2-0.9); Monocytes % 6.5 %; Neutrophils # 7.06 10^3/uL (1.8-7.7); Nucleated Red Blood Cells % 0 %; Platelet Count 281 10^3/cmm (157-399); Red Blood Count 5.54 10^6/uL (3.85-5.65); Red Cell Distribution Width 12.2 % (12.1-15.1); White Blood Count 10.22 10^3/uL (3.29-11.43)
[2024-02-23 11:11] LABS: Alanine Aminotransferase 24 U/L (0-33); Alkaline Phosphatase 135 U/L (35-105); Anion Gap 19.6 (5-19); Aspartate Amino Transferase 25 U/L (0-32); Blood Urea Nitrogen 9 mg/dL (6-20); Calcium 9.3 mg/dL (8.5-10.5); Carbon Dioxide 24 mmol/L (22-29); Chloride 92 mmol/L (98-107); Glomerular Filtration Rate 102.3 mL/min (90-130); Glucose 427 mg/dL (65-115); Osmolality Calculated 291 mOsm/kg (285-295); Potassium 3.6 mmol/L (3.5-5.1); Sodium 132 mmol/L (136-145); Total Bilirubin 0.5 mg/dL (0.15-1.2)
[2024-02-28 12:19] LABS: Erythropoietin 27.6 mIU/mL (2.6-18.5)
== END 2024-03-04 23:59 | disposition home or self-care (01) ==
PROVIDERS: Internal Medicine; PCP Family Medicine; Visit Provider Internal Medicine Hematology & Oncology
DX: D75.1 Secondary polycythemia (principal)
CPT/HCPCS: 36415; 80053; 82668; 85025; 99213

== ENCOUNTER → 2024-03-21 10:32 | Outpatient (BNVA) | payer MEDICARE, MEDICAID, SELFPAY | PROVIDERS: PCP Family Medicine; Visit Provider Family Medicine | DX: E11.49 Type 2 diabetes mellitus with other diabetic neurological complication (principal) | CPT/HCPCS: 80048; 83036 ==

== ENCOUNTER 2024-04-28 13:12 | Emergency (ER) | payer MEDICARE, MEDICAID, SELFPAY ==
[2024-04-28 13:14] VITALS: BP 136/64; PULSE 82; RESP 16; TEMP 36.4; O2SAT 91
[2024-04-28] MEDS: ondansetron 2 mg/ML SDV 2 mL 4 MG IVP (13:37)
--- NOTE | 2024-04-28 13:37 | W.ED.NAVMDI ---
HPI - Nausea/Vomiting/Diarrhea General: Chief complaint: Weakness Stated complaint: WEAKNESS Time Seen by Provider: 04/28/24 13:24 Source: patient Mode of arrival: EMS Limitations: no limitations History of Present Illness: Patient is a 59-year-old female presents to ED today with complaint of generalized weakness, nausea, vomiting. Patient states all day yesterday she felt normal. She states she slept well. She states she woke up this morning feeling normal. She ate a bagel with cheese for breakfast and shortly after began vomiting. She states she has dry heaving and vomited over the past few hours. She feels generalized weak. She feels like her extremities are shaky and jerky and cannot walk because of this. She is not having any abdominal pain. No vomiting. No fevers. MD elicited complaint: nausea, vomiting and other (weakness) Onset (ago): hour(s) Associated nausea: Yes Associated abdominal pain: No Location of pain: None Exacerbating factors: none Relieving factors: none Associated symtoms: Reports no associated symptoms and nausea; Denies change in vision, chest pain, dizziness, dysuria, headache(s), palpitations or syncope Related Data Home Medications Medication Instructions Recorded Confirmed aspirin 81 mg chewable tablet 81 mg PO DAILY 08/31/19 04/28/24 multivitamin 1 tab PO DAILY 08/31/19 04/28/24 oxycodone 10 mg tablet 10 mg PO TID PRN Pain 11/16/22 04/28/24 cholecalciferol (vitamin D3) 1,250 1,250 mcg PO Q7D 04/28/24 04/28/24 mcg (50,000 unit) capsule linaclotide 290 mcg capsule 290 mcg PO QAM 04/28/24 04/28/24 (Linzess) loratadine 10 mg tablet 10 mg PO DAILY 04/28/24 04/28/24 metformin 500 mg tablet,extended 500 mg PO BID 04/28/24 04/28/24 release 24 hr metoclopramide HCl 10 mg tablet 10 mg PO BID 04/28/24 04/28/24 ticagrelor 60 mg tablet (Brilinta) 60 mg PO BID 04/28/24 04/28/24 tiotropium bromide 2.5 2 puff inhalation DAILY 04/28/24 04/28/24 mcg/actuation mist for inhalation (Spiriva Respimat) Previous Rx's Medication Instructions Recorded polyethylene glycol 3350 17 See Rx Instructions .Route 03/18/21 gram/dose oral powder .COMPLEX #510 grams nitroglycerin 0.4 mg sublingual 0.4 mg sublingual Q5M PRN chest 08/11/21 tablet pain #25 tabs morphine 15 mg tablet,extended 15 mg PO TID 30 days #90 tabs 09/17/22 release triamcinolone acetonide 0.1 % 1 applic topical DAILY PRN rash 03/17/23 topical cream #80 grams mupirocin 2 % topical ointment 1 applic topical BID 10 days #22 06/30/23 grams blood-glucose meter (Blood Glucose #1 ea 12/15/23 Monitoring kit) alcohol swabs 1 pad topical TID PRN as needed to 12/16/23 check blood sugar 30 days #100 ea blood sugar diagnostic (Blood #50 ea 12/16/23 Glucose Test strips) lancets #100 ea 12/16/23 ranolazine 1,000 mg 1,000 mg PO BID #180 tabs 01/17/24 tablet,extended release,12 hr amitriptyline 50 mg tablet 50 mg PO DAILY 90 days #90 tabs 02/17/24 atorvastatin 40 mg tablet 40 mg PO DAILY 90 days #90 tabs 02/17/24 cyclobenzaprine 10 mg tablet 10 mg PO TID PRN muscle spasm 90 02/17/24 days #180 tabs famotidine 40 mg tablet 40 mg PO .at bedtime 90 days #90 02/17/24 tabs fluoxetine 20 mg tablet 20 mg PO DAILY 90 days #90 tabs 02/17/24 fluticasone propionate 50 1 spray intranasal BID 30 days #16 02/17/24 mcg/actuation nasal grams spray,suspension (Children's Flonase Allergy Relief) hydrochlorothiazide 12.5 mg tablet 12.5 mg PO DAILY 90 days #90 tabs 02/17/24 hydroxyzine HCl 50 mg tablet 50 mg PO .at bedtime insomnia 90 02/17/24 days #90 tabs icosapent ethyl 1 gram capsule 2 g (2 x 1 gram) PO BID #120 caps 02/17/24 (Vascepa) montelukast 10 mg tablet 10 mg PO DAILY 90 days #90 tabs 02/17/24 ondansetron HCl 4 mg tablet See Rx Instructions .Route 02/17/24 .COMPLEX #180 tabs pantoprazole 40 mg tablet,delayed 40 mg PO DAILY 90 days #90 tabs 02/17/24 release ropinirole 0.5 mg tablet 0.5 mg PO .at bedtime 90 days #90 02/17/24 tabs sitagliptin phosphate 100 mg 100 mg PO DAILY 90 days #90 tabs 02/17/24 tablet (Januvia) albuterol sulfate 2.5 mg/3 mL 2.5 mg (3 mL) inhalation QID PRN 03/09/24 (0.083 %) solution for nebulization shortness of breath or wheezing #75 mL Allergies Allergy/AdvReac Type Severity Reaction Status Date / Time pentazocine Allergy Unknown UNKNOWN Verified 03/29/24 10:46 quinine Allergy Unknown UNKNOWN Verified 03/29/24 10:46 sumatriptan [From Imitrex] Allergy Unknown UNKNOWN Verified 03/29/24 10:46 tramadol Allergy Unknown UNKNOWN Verified 03/29/24 10:46 divalproex sodium Allergy shalorna, Verified 03/29/24 10:46 [From Depakote] uriel Review of Systems Const: Denies: fever(s) Eyes: Denies: change in vision or blurry vision Card: Denies: chest pain, palpitations, irregular heart rhythm, lightheadedness, syncope or pre-syncope Resp: Denies: dyspnea GI: Reports: nausea and vomiting; Denies: abdominal pain, hematemesis, diarrhea or change in bowel habits : Denies: dysuria Musc: Denies: neck pain, back pain, extremity pain, extremity swelling, joint pain or joint swelling Neuro: Denies: headache(s), numbness in extremities, weakness in extremities, sensory changes or dizziness PFS ED PFSH: Medical History Osteoarthritis Polycythemia, secondary Major depression did not do well on Zoloft or Cymbalta in the past. Chronic constipation Failed most previous therapies. Restless leg syndrome Gastroparesis due to secondary diabetes Chronic nausea Hyperlipidemia Vitamin D deficiency Polycythemia vera Diabetes GERD (gastroesophageal reflux disease) CAD (coronary artery disease) of artery bypass graft COPD (chronic obstructive pulmonary disease) Surgical History S/P CABG (coronary artery bypass graft) x4 S/P coronary artery stent placement x2 S/P section S/P shoulder surgery S/P hysterectomy S/P cholecystectomy S/P tonsillectomy Family History Other CAD (coronary artery disease) Diabetes Heart disease Hyperlipidemia Hypertension Stroke Denies family history of Clotting disorder Dementia Psychiatric illness Chronic kidney disease (CKD) Suicide Anesthesia complication Bleeding disorder Lung disease Cancer Social History Smoking and tobacco/nicotine status: current every day tobacco/nicotine user cigarettes Packs smoked per day: 0.5 Years cigarettes smoked: 50 Second hand smoke exposure: Yes Alcohol intake: former Year of sobriety/quit date alcohol: 1999 Substance/Drug Use: never Lives independently: Yes Household members: none Marital status: Current occupational status: disabled Do you think of yourself as: Straight/Heterosexual Current gender identity: Female Female Reproductive History: Spontaneous abortions: No Physical Exam Const: COMMON NORMALS: average body habitus, patient oriented x3, no limitations, healthy appearing, alert and well nourished GENERAL APPEARANCE: cooperative ORIENTATION/CONSCIOUSNESS: Yes awake, Yes oriented to person, Yes oriented to place and Yes oriented to time OTHER: appears nauseous, dry heaving, vomiting HENMT: COMMON NORMALS: normocephalic and atraumatic HEAD & SCALP: normal to inspection, normocephalic and atraumatic Eye: GENERAL EYE: appearance normal, both eyes and all related structures Neck/C-Spine: COMMON NORMALS: full ROM and no meningeal signs Resp: COMMON NORMALS: normal respiratory effort and clear to auscultation bilaterally AUSCULTATION: clear to auscultation bilaterally Cardio: COMMON NORMALS: regular rate and regular rhythm RATE: regular rate RHYTHM: regular rhythm GI: COMMON NORMALS: Normal to inspection, nondistended, normoactive bowel sounds present, Soft to palpation, non-tender, No hepatosplenomegaly present and no masses PALPATION: Yes Soft to palpation and Yes No hepatosplenomegaly present : COMMON NORMALS: Yes no CVA tenderness BLADDER/KIDNEY EXAM: Yes no CVA tenderness Back/Pelvis: COMMON NORMALS: no CVA tenderness Extremity: GENERAL: Yes normal exam except as noted Neuro: MIRIAM COMA SCALE: document GCS findings Miriam coma scale eye opening: Spontaneous Miriam coma scale verbal response: Orientated Miriam coma scale motor response: Obey commands Colton coma scale total score: 15 COMMON NORMALS: patient oriented x3, moves all extremities, no focal motor deficits and no sensory deficits noted SENSORIUM/ORIENTATION: Yes alert, Yes oriented to person, Yes oriented to place and Yes oriented to time MENINGEAL SIGNS: Yes no meningeal signs Skin: COMMON NORMALS: no rashes or lesions noted GENERAL SKIN EXAM: no rashes or lesions noted Course Vital Signs: Vital signs: Vital Signs Temperature 97.5 F L 04/28/24 13:14 Pulse Rate 71 04/28/24 15:21 Respiratory Rate 16 04/28/24 15:21 Blood Pressure 122/59 04/28/24 15:21 Pulse Oximetry 98 04/28/24 15:21 Oxygen Delivery Me thod Room Air 04/28/24 15:21 MDM - Nausea/Vomiting/Diarrhea Medical Decision Making Patient got significant relief of her nausea and vomiting after IV Reglan. Her vital signs are stable. Her blood work is nonactionable. Blood sugars are elevated. Patient states that they normally around 170s. She takes Januvia and Metformin (500mg BID). Patient was given a liter of fluids here. Serum ketones negative. No abdominal pain. She has not had any further vomiting. Patient feels like her weakness has improved/resolved. She was able to be ambulatory here without difficulty or assistance and states she feels back to normal . Patient will be allowed discharge. She can follow-up with primary care early next week. Return to ED precautions given. Medical Records I reviewed the patient's medical records. Lab Data I reviewed the patient's lab results. 04/28/24 13:48 04/28/24 13:48 Laboratory Results WBC 11.30 10^3/uL (3.29-11.43) 04/28/24 13:48 RBC 5.46 10^6/uL (3.85-5.65) 04/28/24 13:48 Hgb 16.00 g/dL (11.27-16.99) 04/28/24 13:48 Hct 48.2 % (36-47) H 04/28/24 13:48 MCV 88.3 fl (85-98) 04/28/24 13:48 MCH 29.3 pg (27-33) 04/28/24 13:48 MCHC 33.2 g/dL (30-55) 04/28/24 13:48 RDW 12.5 % (12.1-15.1) 04/28/24 13:48 Plt Count 275 10^3/cmm (157-399) 04/28/24 13:48 MPV 9.5 fL (7.4-10.4) 04/28/24 13:48 Neut % (Auto) 81.5 % 04/28/24 13:48 Lymph % (Auto) 12.4 % 04/28/24 13:48 [place] % (Auto) 4.1 % 04/28/24 13:48 Eos % (Auto) 0.4 % 04/28/24 13:48 Baso % (Auto) 0.4 % 04/28/24 13:48 Neut # (Auto) 9.21 10^3/uL (1.8-7.7) H 04/28/24 13:48 Lymph # (Auto) 1.4 10^3/uL (0.8-4.8) 04/28/24 13:48 [place] # (Auto) 0.5 10^3/uL (0.2-0.9) 04/28/24 13:48 Eos # (Auto) 0.1 10^3/uL (0.0-0.8) 04/28/24 13:48 Baso # (Auto) 0.1 10^3/uL (0.0-0.1) 04/28/24 13:48 Nucleated RBC % (auto) 0 % 04/28/24 13:48 Nucleated RBCs # 0.0 /100WBC 04/28/24 13:48 Sodium 134 mmol/L (136-145) L 04/28/24 13:48 Potassium 4.2 mmol/L (3.5-5.1) 04/28/24 13:48 Chloride 96 mmol/L (98-107) L 04/28/24 13:48 Carbon Dioxide 25 mmol/L (22-29) 04/28/24 13:48 Anion Gap 17.2 (5-19) 04/28/24 13:48 BUN 12 mg/dL (8-23) 04/28/24 13:48 Creatinine 0.5 mg/dL (0.5-0.9) 04/28/24 13:48 GFR Calculation 125.9 mL/min (90-130) 04/28/24 13:48 Glucose 277 mg/dL (65-115) H 04/28/24 13:48 Calculated Osmolality 288 mOsm/kg (285-295) 04/28/24 13:48 Calcium 8.9 mg/dL (8.5-10.5) 04/28/24 13:48 Total Bilirubin 0.3 mg/dL (0.15-1.2) 04/28/24 13:48 AST 48 U/L (0-32) H 04/28/24 13:48 ALT 60 U/L (0-33) H 04/28/24 13:48 Alkaline Phosphatase 119 U/L (35-105) H 04/28/24 13:48 Total Protein 6.7 g/dL (6.6-8.7) 04/28/24 13:48 Albumin 4.0 g/dL (3.5-5.2) 04/28/24 13:48 Globulin 2.7 g/dL (1.3-4.6) 04/28/24 13:48 Urine Color Dark yellow (Yellow) A 04/28/24 14:11 Urine Appearance Clear (CLEAR) 04/28/24 14:11 Urine pH 5.5 (5-7) 04/28/24 14:11 Ur Specific [place] 1.023 (1.005-1.030) 04/28/24 14:11 Urine Protein 1+ (Negative) A 04/28/24 14:11 Urine Glucose (UA) 2+ (Normal) H 04/28/24 14:11 Urine Ketones Trace (Negative) 04/28/24 14:11 Urine Blood Negative (Negative) 04/28/24 14:11 Urine Nitrate Negative (Negative) 04/28/24 14:11 Urine Bilirubin Negative (Negative) 04/28/24 14:11 Urine Urobilinogen 1.0 mg/dL (Negative) 04/28/24 14:11 Ur Leukocyte Esterase Trace (Negative) A 04/28/24 14:11 Urine RBC 0-2 /hpf (0-2) 04/28/24 14:11 Urine WBC 6-10 /hpf (0-5) 04/28/24 14:11 Ur Squamous Epith Cells 11-20 /hpf (0-5) 04/28/24 14:11 Amorphous Sediment Not Reportable 04/28/24 14:11 Urine Bacteria Trace /hpf (NONE) 04/28/24 14:11 Hyaline Casts 7.85 /lpf 04/28/24 14:11 Serum Ketones Negative (Negative) 04/28/24 13:48 No radiology studies performed this visit Discharge Plan Discharge Patient Disposition: Home Clinical Impression: Weakness Nausea and vomiting Qualifiers: Vomiting type: unspecified Qualified Code(s): R11.2 - Nausea with vomiting, unspecified Condition: Stable Prescriptions: No Action multivitamin Tablet 1 tab PO DAILY aspirin 81 mg tablet,chewable 81 mg PO DAILY nitroglycerin 0.4 mg tablet, sublingual 0.4 mg SUBLINGUAL Q5M PRN (Reason: chest pain) Qty: 25 6RF polyethylene glycol 3350 17 gram/dose powder See Rx Instructions .ROUTE .COMPLEX Qty: 510 5RF Dose Instruction: MIX 17 GRAMS WITH 8 OUNCE/S.OF JUICE/WATER BY MOUTH TWICE DAILY FOR 30 DAYS Rx Instructions: MIX 17 GRAMS WITH 8 OUNCE/S.OF JUICE/WATER BY MOUTH TWICE DAILY FOR 30 DAYS mupirocin 2 % ointment 1 applic topical BID 10 Days Qty: 22 2RF albuterol sulfate 2.5 mg /3 mL (0.083 %) solution for nebulization 2.5 mg inhalation QID PRN (Reason: shortness of breath or wheezing) Qty: 75 1RF oxycodone 10 mg tablet 10 mg PO TID PRN (Reason: Pain) triamcinolone acetonide 0.1 % cream 1 applic topical DAILY PRN (Reason: rash) Qty: 80 0RF Rx Instructions: left leg amitriptyline 50 mg tablet 50 mg PO DAILY 90 Days Qty: 90 2RF atorvastatin 40 mg tablet 40 mg PO DAILY 90 Days Qty: 90 2RF cyclobenzaprine 10 mg tablet 10 mg PO TID PRN (Reason: muscle spasm) 90 Days Qty: 180 5RF Rx Instructions: may take 1/2 to 1 tab famotidine 40 mg tablet 40 mg PO .at bedtime 90 Days Qty: 90 2RF fluoxetine 20 mg tablet 20 mg PO DAILY 90 Days Qty: 90 2RF fluticasone propionate [Children's Flonase Allergy Rlf] 50 mcg/actuation spray,suspension 1 spray intranasal BID 30 Days Qty: 16 6RF Rx Instructions: administer into each nostril hydrochlorothiazide 12.5 mg tablet 12.5 mg PO DAILY 90 Days Qty: 90 2RF hydroxyzine HCl 50 mg tablet 50 mg PO .at bedtime 90 Days Qty: 90 2RF icosapent ethyl [Vascepa] 1 gram capsule 2 g PO BID Qty: 120 6RF montelukast 10 mg tablet 10 mg PO DAILY 90 Days Qty: 90 2RF Januvia 100 mg tablet 100 mg PO DAILY 90 Days Qty: 90 2RF ropinirole 0.5 mg tablet 0.5 mg PO .at bedtime 90 Days Qty: 90 2RF pantoprazole 40 mg tablet,delayed release (DR/EC) 40 mg PO DAILY 90 Days Qty: 90 2RF ondansetron HCl 4 mg tablet See Rx Instructions .ROUTE .COMPLEX Qty: 180 2RF Dose Instruction: TAKE 1 TABLET BY MOUTH TWICE A DAY NEEDED FOR NAUSEA AND VOMITING MAX DAILY 2 TABLETS Rx Instructions: TAKE 1 TABLET BY MOUTH TWICE A DAY NEEDED FOR NAUSEA AND VOMITING MAX DAILY 2 TABLETS morphine 15 mg tablet extended release 15 mg PO TID 30 Days Qty: 90 0RF (DME) blood-glucose meter [Blood Glucose Monitoring] Kit See Rx Instructions .ROUTE .MEDSUPPLY Qty: 1 0RF Rx Instructions: Brand/type per insurance coverage (DME) Blood Glucose Test Strip See Rx Instructions .ROUTE .MEDSUPPLY Qty: 50 11RF Rx Instructions: Brand/type to go with meter per insurance coverage (DME) lancets [facility] See Rx Instructions .ROUTE .MEDSUPPLY Qty: 100 11RF Rx Instructions: For use with glucose meter, brand/type per insurance alcohol swabs Pads, Medicated 1 pad topical TID PRN (Reason: as needed to check blood sugar) 30 Days Qty: 100 11RF ranolazine 1,000 mg tablet extended release 12 hr 1,000 mg PO BID Qty: 180 3RF metformin 500 mg tablet extended release 24 hr 500 mg PO BID loratadine 10 mg tablet 10 mg PO DAILY metoclopramide HCl 10 mg tablet 10 mg PO BID Rx Instructions: with meals cholecalciferol (vitamin D3) 1,250 mcg (50,000 unit) capsule 1,250 mcg PO Q7D Linzess 290 mcg capsule 290 mcg PO QAM Spiriva Respimat 2.5 mcg/actuation mist 2 puff inhalation DAILY Brilinta 60 mg tablet 60 mg PO BID Discharge Orders: Discharge ED (Routine); Ordered 04/28/24 Ordered By: Cordelia Head Referrals: Lexi Tripathi MD [Primary Care Provider] - Activity Restrictions/Additional Instructions: As we discussed, you can take your Reglan as needed for nausea and vomiting. Continue to push fluids. Please follow-up with your primary care provider early next week for reevaluation. You need to return to the emergency department for continued nausea or vomiting, severe abdominal pain, fevers, generally feeling worse or unwell, any seizure like activity, or any other concerns you may have. Coding Level of Care Code ED Bag Adjuster for Kathrin Canales
[2024-04-28 13:51] VITALS: BP 127/69; RESP 16; O2SAT 93
[2024-04-28 13:53] LABS: Basophils # 0.1 10^3/uL (0.0-0.1); Basophils % 0.4 %; Eosinophils # 0.1 10^3/uL (0.0-0.8); Eosinophils % 0.4 %; Hematocrit 48.2 % (36-47); Lymphocytes # 1.4 10^3/uL (0.8-4.8); Lymphocytes % 12.4 %; Mean Corpuscular HGB Conc 33.2 g/dL (30-55); Mean Corpuscular Hemoglobin 29.3 pg (27-33); Mean Corpuscular Volume 88.3 fl (85-98); Mean Platelet Volume 9.5 fL (7.4-10.4); Monocytes # 0.5 10^3/uL (0.2-0.9); Monocytes % 4.1 %; Neutrophils # 9.21 10^3/uL (1.8-7.7); Neutrophils % 81.5 %; Nucleated Red Blood Cells % 0 %; Platelet Count 275 10^3/cmm (157-399); Red Blood Count 5.46 10^6/uL (3.85-5.65); Red Cell Distribution Width 12.5 % (12.1-15.1)
[2024-04-28] MEDS: sodium chloride 0.9% 1,000 ML 999 ML IV (14:10)
[2024-04-28 14:14] LABS: Alanine Aminotransferase 60 U/L (0-33); Alkaline Phosphatase 119 U/L (35-105); Anion Gap 17.2 (5-19); Aspartate Amino Transferase 48 U/L (0-32); Blood Urea Nitrogen 12 mg/dL (8-23); Calcium 8.9 mg/dL (8.5-10.5); Carbon Dioxide 25 mmol/L (22-29); Chloride 96 mmol/L (98-107); Creatinine Clr Calc Pharmacy 114.3564; Globulin 2.7 g/dL (1.3-4.6); Glomerular Filtration Rate 125.9 mL/min (90-130); Glucose 277 mg/dL (65-115); Osmolality Calculated 288 mOsm/kg (285-295); Potassium 4.2 mmol/L (3.5-5.1); Sodium 134 mmol/L (136-145); Total Bilirubin 0.3 mg/dL (0.15-1.2); Total Protein 6.7 g/dL (6.6-8.7)
[2024-04-28 14:21] LABS: Bilirubin Urine Negative (Negative); Blood Urine Negative (Negative); Glucose Urine UA 2+ (Normal); Ketones Urine Trace (Negative); Leukocyte Esterase Urine Trace (Negative); Nitrate Urine Negative (Negative); Protein Urine 1+ (Negative); Specific Gravity, Urine 1.023 (1.005-1.030); Urine Appearance Clear (CLEAR); Urine Color Dark Yellow (Yellow); pH Urine 5.5 (5-7)
[2024-04-28] MEDS: metoclopramide 5 mg/mL SDV 2 mL 10 MG IVP (14:23)
[2024-04-28 14:24] LABS: Add Urine Microscopic? YES; Bacteria Urine Trace /hpf; Hyaline Casts Urine 7.85 /lpf; RBC Urine 0-2 /hpf (0-2)
[2024-04-28 14:38] LABS: Add Urine Culture? No
[2024-04-28 15:12] LABS: Ketone (Acetest) Serum Negative (Negative)
[2024-04-28 15:21] VITALS: BP 122/59; PULSE 71; RESP 16; O2SAT 98
[2024-04-28 16:04] VITALS: BP 122/59; PULSE 73; RESP 16; O2SAT 95
== END 2024-04-28 15:55 | disposition home or self-care (01) ==
PROVIDERS: Emergency Provider Physician Assistant; PCP Family Medicine
DX: R53.1 Weakness (principal); R11.2 Nausea with vomiting, unspecified
CPT/HCPCS: 36415; 80053; 81001; 82009; 85025; 96374; 96375; 99284; J2405; J2765; J7030

== ENCOUNTER → 2024-05-01 08:56 | Outpatient (BNVA) | payer MEDICARE, MEDICAID, SELFPAY | PROVIDERS: PCP Family Medicine; Visit Provider Nurse Practitioner Family | DX: I25.810 Atherosclerosis of coronary artery bypass graft(s) without angina pectoris (principal); E78.2 Mixed hyperlipidemia; I10 Essential (primary) hypertension; F17.210 Nicotine dependence, cigarettes, uncomplicated; M96.89 Other intraoperative and postprocedural complications and disorders of the musculoskeletal system; M95.4 Acquired deformity of chest and rib | CPT/HCPCS: 99214 ==

== ENCOUNTER → 2024-05-30 11:23 | Outpatient (BNVA) | payer MEDICARE, MEDICAID, SELFPAY | PROVIDERS: PCP Family Medicine; Visit Provider Family Medicine | DX: I10 Essential (primary) hypertension (principal); R00.2 Palpitations | CPT/HCPCS: 80053; 80061; 83721; 84443 ==

== ENCOUNTER 2024-06-29 13:01 | Oncology outpatient (recurring) (ONCR) | payer MEDICARE, MEDICAID, SELFPAY ==
[2024-06-21 12:01] LABS: Basophils # 0.1 10^3/uL (0.0-0.1); Basophils % 0.5 %; Eosinophils # 0.1 10^3/uL (0.0-0.8); Eosinophils % 1.3 %; Hematocrit 45.2 % (36-47); Lymphocytes # 2.5 10^3/uL (0.8-4.8); Lymphocytes % 26.8 %; Mean Corpuscular HGB Conc 34.3 g/dL (30-55); Mean Corpuscular Hemoglobin 29.3 pg (27-33); Mean Corpuscular Volume 85.4 fl (85-98); Mean Platelet Volume 9.7 fL (7.4-10.4); Monocytes # 0.6 10^3/uL (0.2-0.9); Monocytes % 6.7 %; Neutrophils # 6.05 10^3/uL (1.8-7.7); Neutrophils % 63.8 %; Nucleated Red Blood Cells % 0 %; Platelet Count 297 10^3/cmm (157-399); Red Blood Count 5.29 10^6/uL (3.85-5.65); Red Cell Distribution Width 12.4 % (12.1-15.1); White Blood Count 9.49 10^3/uL (3.29-11.43)
[2024-06-21 12:22] LABS: Alanine Aminotransferase 32 U/L (0-33); Albumin Level 3.9 g/dL (3.5-5.2); Alkaline Phosphatase 107 U/L (35-105); Anion Gap 16.8 (5-19); Aspartate Amino Transferase 26 U/L (0-32); Blood Urea Nitrogen 8 mg/dL (8-23); Calcium 9.3 mg/dL (8.5-10.5); Carbon Dioxide 25 mmol/L (22-29); Chloride 95 mmol/L (98-107); Globulin 2.6 g/dL (1.3-4.6); Glucose 354 mg/dL (65-115); Osmolality Calculated 289 mOsm/kg (285-295); Potassium 3.8 mmol/L (3.5-5.1); Sodium 133 mmol/L (136-145); Total Bilirubin 0.3 mg/dL (0.15-1.2); Total Protein 6.5 g/dL (6.6-8.7)
== END 2024-07-04 23:59 | disposition home or self-care (01) ==
PROVIDERS: Nurse Practitioner Family; PCP Family Medicine; Visit Provider Internal Medicine
DX: D75.1 Secondary polycythemia (principal); F17.210 Nicotine dependence, cigarettes, uncomplicated; G47.33 Obstructive sleep apnea (adult) (pediatric); Z86.73 Personal history of transient ischemic attack (TIA), and cerebral infarction without residual deficits; Z95.1 Presence of aortocoronary bypass graft; Z95.5 Presence of coronary angioplasty implant and graft; Z79.899 Other long term (current) drug therapy; E11.65 Type 2 diabetes mellitus with hyperglycemia
CPT/HCPCS: 36415; 80053; 85025; 99213

== ENCOUNTER → 2024-08-10 09:05 | Outpatient (BNVA) | payer MEDICARE, MEDICAID, SELFPAY | PROVIDERS: PCP Family Medicine; Visit Provider Family Medicine | DX: I10 Essential (primary) hypertension (principal); E11.49 Type 2 diabetes mellitus with other diabetic neurological complication | CPT/HCPCS: 80048; 83036; 83735 ==

== ENCOUNTER 2024-10-23 09:46 | Oncology outpatient (recurring) (ONCR) | payer OTHER, MEDICAID, SELFPAY ==
[2024-10-23 10:09] LABS: Hematocrit 48.4 % (36-47); Mean Corpuscular HGB Conc 33.5 g/dL (30-55); Mean Corpuscular Hemoglobin 29.1 pg (27-33); Mean Corpuscular Volume 87.1 fl (85-98); Mean Platelet Volume 9.2 fL (7.4-10.4); Platelet Count 296 10^3/cmm (157-399); Red Blood Count 5.56 10^6/uL (3.85-5.65); Red Cell Distribution Width 12.7 % (12.1-15.1); White Blood Count 15.68 10^3/uL (3.29-11.43)
[2024-10-23 10:31] LABS: Alanine Aminotransferase 24 U/L (0-33); Alkaline Phosphatase 109 U/L (35-105); Anion Gap 17.3 (5-19); Aspartate Amino Transferase 19 U/L (0-32); Blood Urea Nitrogen 12 mg/dL (8-23); Calcium 10.6 mg/dL (8.5-10.5); Carbon Dioxide 23 mmol/L (22-29); Chloride 101 mmol/L (98-107); Globulin 3.1 g/dL (1.3-4.6); Glucose 117 mg/dL (65-115); Lactate Dehydrogenase 145 U/L (135-214); Osmolality Calculated 285 mOsm/kg (285-295); Potassium 4.3 mmol/L (3.5-5.1); Sodium 137 mmol/L (136-145); Total Bilirubin 0.2 mg/dL (0.15-1.2); Total Protein 7.1 g/dL (6.6-8.7)
[2024-10-23 10:44] LABS: Total Cells Counted 100 (0-100)
[2024-10-23 10:47] LABS: Absolute Eosinophils 0.2 10^3/cmm (0.0-0.7); Absolute Segmented Neutrophil 12.5 10/cmm (1.6-7.1); Eosinophils 1 %; Lymphocytes 16 %; Lymphocytes Absolute 2.7 10^3/cmm (1.2-3.4); Monocytes Absolute 0.3 10^3/cmm (0.1-0.6); Segmented Neutrophils 80 %
[2024-10-23 11:11] LABS: Absolute Neutrophil 12.5 10^3/cmm (1.4-6.5); Platelet Estimate Normal (Normal)
== END 2024-11-01 23:59 | disposition home or self-care (01) ==
PROVIDERS: PCP Family Medicine; Visit Provider Internal Medicine
DX: D75.1 Secondary polycythemia (principal); F17.210 Nicotine dependence, cigarettes, uncomplicated; G47.33 Obstructive sleep apnea (adult) (pediatric); R05.9 Cough, unspecified; D72.829 Elevated white blood cell count, unspecified; Z86.73 Personal history of transient ischemic attack (TIA), and cerebral infarction without residual deficits; Z95.1 Presence of aortocoronary bypass graft; Z95.5 Presence of coronary angioplasty implant and graft
CPT/HCPCS: 36415; 80053; 83615; 85007; 85027; 86140; 99214

== ENCOUNTER → 2024-10-31 15:21 | Outpatient (BNVA) | payer OTHER, MEDICAID, SELFPAY | PROVIDERS: PCP Family Medicine; Visit Provider Internal Medicine Cardiovascular Disease | DX: I25.10 Atherosclerotic heart disease of native coronary artery without angina pectoris (principal); Z95.1 Presence of aortocoronary bypass graft; R07.89 Other chest pain; F17.210 Nicotine dependence, cigarettes, uncomplicated | CPT/HCPCS: 99214 ==

== ENCOUNTER 2024-11-08 09:52 | Oncology outpatient (recurring) (ONCR) | payer OTHER, MEDICAID, SELFPAY ==
--- NOTE | 2024-11-08 10:00 | CT_ITS ---
WS: [id number] LDCT LUNG CANCER SCREENING TECHNIQUE: Noncontrast CT of the chest with coronal and sagittal reformatted images. CLINICAL INFORMATION: tobacco abuse COMPARISON: CT 10/07/2023 DLP: 79.00 mGy.cm DIvol: Mean CTDIvol: 1.80 (mGy) All CT scans at [facility] use at least one of these dose optimization techniques: automated exposure control; mA and/or kV adjustment per patient size (includes targeted exams where dose is matched to clinical indication); or iterative reconstruction. FINDINGS: A few tiny nodules RIGHT lower lobe unchanged. Tiny subpleural nodule LEFT lower lobe stable compared to previous. Calcified granuloma LEFT lower lobe. Mild aortic calcification. Prior CABG. No mediastinal or hilar lymphadenopathy. Adrenal glands are normal. Normal caliber thoracic aorta. Small LEFT adrenal adenoma. Mild thoracic curve. CT/CT lung screening [id number] IMPRESSION: Hazy groundglass nodular infiltrates in RIGHT lower lobe are new from previous likely infectious or inflammatory. Recommend 3-month follow-up. LUNG-RADS: 3-Probably Benign FOLLOW UP: 3 Month LDCT
== END 2024-12-02 23:59 | disposition home or self-care (01) ==
LOC: ONCMED 09:53 → RAD 09:54 → ONCMED 11-13 10:30
PROVIDERS: PCP Family Medicine; Visit Provider Nurse Practitioner Family
DX: D75.1 Secondary polycythemia (principal); F17.210 Nicotine dependence, cigarettes, uncomplicated; R91.8 Other nonspecific abnormal finding of lung field
CPT/HCPCS: 71271

== ENCOUNTER → 2024-11-23 10:33 | Outpatient (BNVA) | payer MEDICARE, MEDICAID, SELFPAY | PROVIDERS: PCP Family Medicine; Referring Provider Family Medicine; Visit Provider Family Medicine | DX: I10 Essential (primary) hypertension (principal); E11.49 Type 2 diabetes mellitus with other diabetic neurological complication; E11.9 Type 2 diabetes mellitus without complications | CPT/HCPCS: 80053; 83036; 85025 ==

== ENCOUNTER 2024-12-18 09:47 | Oncology outpatient (recurring) (ONCR) | payer OTHER, MEDICAID, SELFPAY ==
[2024-12-18 10:22] LABS: Basophils # 0.1 10^3/uL (0.0-0.1); Basophils % 0.7 %; Eosinophils # 0.1 10^3/uL (0.0-0.8); Eosinophils % 1.3 %; Hematocrit 46.3 % (36-47); Lymphocytes # 2.8 10^3/uL (0.8-4.8); Lymphocytes % 29.3 %; Mean Corpuscular HGB Conc 33.3 g/dL (30-55); Mean Corpuscular Hemoglobin 29.6 pg (27-33); Mean Platelet Volume 9.4 fL (7.4-10.4); Monocytes # 0.7 10^3/uL (0.2-0.9); Monocytes % 6.9 %; Neutrophils # 5.74 10^3/uL (1.8-7.7); Neutrophils % 60.2 %; Nucleated Red Blood Cells % 0 %; Platelet Count 313 10^3/cmm (157-399); Red Cell Distribution Width 13.6 % (12.1-15.1); White Blood Count 9.53 10^3/uL (3.29-11.43)
--- NOTE | 2024-12-18 10:56 | PC.NURSE ---
Patient transported to [facility] ER via wheelchair per request of Dr Henley. Patient's port was accessed with fluids running at time of transport.
== END 2025-01-01 23:59 | disposition home or self-care (01) ==
PROVIDERS: Family Provider Family Medicine; PCP Family Medicine; Visit Provider Nurse Practitioner Family
DX: D75.1 Secondary polycythemia (principal); F17.210 Nicotine dependence, cigarettes, uncomplicated; Z79.899 Other long term (current) drug therapy
CPT/HCPCS: 36415; 85025; 99195; 99214

== ENCOUNTER 2025-01-10 11:43 | Outpatient (CLI) | payer MEDICARE, MEDICAID, SELFPAY ==
--- NOTE | 2025-01-10 11:49 | MR_ITS ---
WS: [id number] MRI LUMBAR SPINE NONCONTRAST TECHNIQUE: Sagittal T1, T2 and STIR imaging. Axial T1 and T2 imaging. CLINICAL INFORMATION: INTERVERTEBRAL DISC DISORDERS W/RADICULOPATHY,LSPINE REGION COMPARISON: None. FINDINGS: Mild lumbar curve. No acute compression. Incidental endplate Schmorl's node at T11. Mild central canal stenosis at T10-11 only included on the sagittal imaging. L1-L2: Mild annular bulging. Mild facet arthropathy. L2-L3: Mild annular bulging. Mild facet arthropathy. Slight narrowing of the RIGHT subarticular recess. Spinal canal and foramen are patent. L3-L4: Mild annular bulging with slight impingement on the LEFT greater than RIGHT subarticular recess. Tiny annular fissure. Moderate facet arthropathy. Mild bilateral foraminal narrowing. L4-L5: Mild annular bulging with slight impingement on the RIGHT greater than LEFT subarticular recess and traversing RIGHT L5 nerve root. Moderate facet arthropathy. Mild RIGHT foraminal narrowing. L5-S1: Mild annular bulging. Moderate facet arthropathy. Mild RIGHT bony foraminal narrowing. Visualized pelvic bony structures: Normal. Paravertebral soft tissues: Normal. MR/MR lumbar spine wo con* [id number] IMPRESSION: 1. Mild lumbar curve. No acute compression. No high-grade central canal stenos is. 2. Mild annular bulging L4-5 impinges the traversing RIGHT L5 nerve root in th e subarticular recess. Mild RIGHT foraminal narrowing. 3. Mild annular bulging L2-3 with narrowing of the RIGHT subarticular recess. 4. Mild annular bulging with a tiny annular fissure. Slight impingement on the traversing LEFT L4 nerve root in the subarticular recess. 5. Moderate facet arthropathy L5-S1 level worse on the RIGHT with mild RIGHT p roximal bony foraminal narrowing. 6. Mild central canal stenosis T10-11 only included on the sagittal imaging. T his could be further evaluated with thoracic spine MRI.
== END 2025-01-10 11:44 | disposition home or self-care (01) ==
LOC: RAD 11:43
PROVIDERS: Family Provider Family Medicine; PCP Family Medicine; Visit Provider Anesthesiology
DX: M51.17 Intervertebral disc disorders with radiculopathy, lumbosacral region (principal); M47.27 Other spondylosis with radiculopathy, lumbosacral region; M48.04 Spinal stenosis, thoracic region
CPT/HCPCS: 72148

== ENCOUNTER → 2025-02-13 09:47 | Outpatient (BNVA) | payer MEDICARE, MEDICAID, SELFPAY | PROVIDERS: Family Provider Family Medicine; PCP Family Medicine; Referring Provider Family Medicine; Visit Provider Internal Medicine Medical Oncology | DX: D75.1 Secondary polycythemia (principal); N63.20 Unspecified lump in the left breast, unspecified quadrant | CPT/HCPCS: 82550; 85025 ==

== ENCOUNTER 2025-02-19 14:00 | Oncology outpatient (recurring) (ONCR) | payer OTHER, MEDICAID, SELFPAY ==
--- NOTE | 2025-02-09 12:00 | CT_ITS ---
WS: [id number] CT chest w con* [id number] HISTORY: Abnormal chest CT from 11/08/2024 TECHNIQUE: Axial imaging performed through the thorax. Coronal and sagittal reformats are submitted. All CT scans at [facility] use at least one of these dose optimization techniques: automated exposure control; mA and/or kV adjustment per patient size (includes targeted exams where dose is matched to clinical indication); or iterative reconstruction. CONTRAST: Omnipaque 350; 100 mL IV. DLP: 455.45 mGy.cm COMPARISON: 11/08/2024, 10/07/2023 Lungs and central airway: Normally aerated lungs. Single focus of residual groundglass opacification in the RIGHT lower lobe. There is slight nodularity associated with the groundglass attenuation. Much improved tree-in-bud airspace disease and reticular nodular opacifications compared to the prior study. Benign granuloma LEFT lower lobe. Pleura: Normal. No pleural effusion. Heart and pericardium: Normal size heart with no pericardial effusion. Mediastinum and faiza: No mediastinum or hilar adenopathy. Vessels: Mild atherosclerosis aorta. Normal size aorta. Normal size pulmonary artery. Chest wall and lower neck: No soft tissue masses. Upper abdomen: No adrenal mass. Mild atherosclerotic plaque celiac axis. Calcifications throughout the splenic artery. Osseous structures: No destructive process. CT/CT chest w con* [id number] IMPRESSION: 1. Near complete resolution of the recently described groundglass opacificatio ns and tree-in-bud airspace disease in the RIGHT lung. There is a small residua l component of tree-in-bud airspace disease and reticulonodular opacification i n the RIGHT lower lobe. Probably the residual of pneumonitis or endobronchial p neumonia. 2. No mass. 3. No hilar adenopathy. 4. Mild atherosclerosis aorta and splenic artery.
[2025-02-09 12:32] LABS: Blood Urea Nitrogen 15 mg/dL (8-23)
[2025-02-09] MEDS: iohexol 350 mg/mL 500 mL Btl (per mL) IV (12:38)
[2025-02-19 13:53] LABS: Hematocrit 45.2 % (36-47); Hemoglobin 15.00 g/dL (11.27-16.99); Mean Corpuscular HGB Conc 33.2 g/dL (30-55); Mean Corpuscular Hemoglobin 29.4 pg (27-33); Mean Corpuscular Volume 88.5 fl (85-98); Platelet Count 300 10^3/cmm (157-399); Red Blood Count 5.11 10^6/uL (3.85-5.65); White Blood Count 10.56 10^3/uL (3.29-11.43)
[2025-02-19 14:10] LABS: Alanine Aminotransferase 24 U/L (0-33); Albumin Level 3.9 g/dL (3.5-5.2); Alkaline Phosphatase 111 U/L (35-105); Anion Gap 12.1 (5-19); Aspartate Amino Transferase 18 U/L (0-32); Blood Urea Nitrogen 12 mg/dL (8-23); Calcium 9.5 mg/dL (8.5-10.5); Carbon Dioxide 28 mmol/L (22-29); Chloride 103 mmol/L (98-107); Globulin 2.7 g/dL (1.3-4.6); Glucose 67 mg/dL (65-115); Osmolality Calculated 286 mOsm/kg (285-295); Potassium 4.1 mmol/L (3.5-5.1); Sodium 139 mmol/L (136-145); Total Protein 6.6 g/dL (6.6-8.7)
[2025-02-19 14:26] LABS: Total Cells Counted 100 (0-100)
[2025-02-19 14:29] LABS: Absolute Segmented Neutrophil 6.0 10/cmm (1.6-7.1); Atypical Lymphs 1.0 % (0-5); Band Neutrophils Absolute 0.0 10^3/cmm (0.0-1.2)
[2025-02-19 15:10] VITALS: BP 132/76; PULSE 68; RESP 16; O2SAT 95
== END 2025-03-04 23:59 | disposition home or self-care (01) ==
PROVIDERS: Internal Medicine; Family Provider Family Medicine; PCP Family Medicine; Visit Provider Nurse Practitioner Family
DX: D75.1 Secondary polycythemia; Z53.9 Procedure and treatment not carried out, unspecified reason
CPT/HCPCS: 36415; 71260; 80053; 82565; 83615; 84520; 85007; 85027; 86140; 99195

== ENCOUNTER → 2025-03-06 14:59 | Outpatient (BNVA) | payer MEDICARE, MEDICAID, SELFPAY | PROVIDERS: Family Provider Family Medicine; PCP Family Medicine; Visit Provider Family Medicine | DX: E11.49 Type 2 diabetes mellitus with other diabetic neurological complication (principal); E78.2 Mixed hyperlipidemia | CPT/HCPCS: 80061; 83036 ==

== ENCOUNTER → 2025-04-05 11:34 | Outpatient (BNVA) | payer MEDICARE, MEDICAID, SELFPAY | PROVIDERS: Family Provider Family Medicine; PCP Family Medicine; Visit Provider Nurse Practitioner | DX: R30.0 Dysuria (principal); R10.9 Unspecified abdominal pain | CPT/HCPCS: 81000; 87077; 87086; 87184 ==

== ENCOUNTER 2025-04-23 13:23 | Oncology outpatient (recurring) (ONCR) | payer MEDICARE, MEDICAID, SELFPAY ==
[2025-04-23 13:58] LABS: Hematocrit 45.4 % (36-47); Hemoglobin 14.90 g/dL (11.27-16.99); Mean Corpuscular HGB Conc 32.8 g/dL (30-55); Mean Corpuscular Hemoglobin 28.3 pg (27-33); Mean Corpuscular Volume 86.1 fl (85-98); Nucleated Red Blood Cells % 0 %; Platelet Count 263 10^3/cmm (157-399); Red Blood Count 5.27 10^6/uL (3.85-5.65); White Blood Count 12.39 10^3/uL (3.29-11.43)
== END 2025-05-04 23:59 | disposition home or self-care (01) ==
LOC: ONCMED 13:23
PROVIDERS: Internal Medicine Medical Oncology; Family Provider Family Medicine; PCP Family Medicine; Visit Provider Nurse Practitioner Family
DX: D75.1 Secondary polycythemia (principal)
CPT/HCPCS: 36415; 85025

== ENCOUNTER 2025-06-18 13:53 | Oncology outpatient (recurring) (ONCR) | payer MEDICARE, MEDICAID, SELFPAY ==
[2025-06-18 14:12] LABS: Hematocrit 45.9 % (36-47); Hemoglobin 15.10 g/dL (11.27-16.99); Mean Corpuscular HGB Conc 32.9 g/dL (30-55); Mean Corpuscular Hemoglobin 28.8 pg (27-33); Mean Corpuscular Volume 87.4 fl (85-98); Nucleated Red Blood Cells % 0 %; Platelet Count 318 10^3/cmm (157-399); Red Blood Count 5.25 10^6/uL (3.85-5.65); White Blood Count 11.97 10^3/uL (3.29-11.43)
--- NOTE | 2025-06-18 15:35 | PC.NURSE ---
Labs reviewed with pt. Hgb 15.10, Hct 45.9. Per parameters pt does not need phlebotomy at this time. Pt voiced understanding./lc
== END 2025-07-04 23:59 | disposition home or self-care (01) ==
LOC: ONCMED 13:54
PROVIDERS: Internal Medicine Medical Oncology; Family Provider Family Medicine; PCP Family Medicine; Visit Provider Nurse Practitioner Family
DX: D75.1 Secondary polycythemia (principal)
CPT/HCPCS: 36415; 85025